=== PATIENT | female | born 1985 | race Caucasian/White ===

== ENCOUNTER → 2017-02-16 | Outpatient (REF) | payer BC ==
[~2017-02-16] MED LIST: HYDR-4274 PO; LEVO75TA4 PO; LOES1TAB10 PO; OLAN5TAB PO; PREV30CA11 PO; ZOLO50TA PO; zyrtec PO
[2017-02-16 18:01] LABS: CONTROL LINE HCG INT CTR LINE PRESENT
[2017-02-16 18:40] LABS: PROLACTIN 14.1 NG/ML
== END ==
LOC: M LABDRAW1 15:55
PROVIDERS: ATTEND Nurse Practitioner Women's Health
DX: N91.5 Oligomenorrhea, unspecified (principal)

== ENCOUNTER → 2017-04-19 | Outpatient (REF) | payer BC ==
[~2017-04-19] MED LIST changes: -HYDR-4274 PO; +HYDR50TA70 PO; +PREV1CAP PO; -PREV30CA11 PO
== END ==
LOC: M LABDRAW1 13:57
PROVIDERS: ATTEND Physician Assistant
DX: E03.9 Hypothyroidism, unspecified (principal)

== ENCOUNTER → 2017-08-05 | Outpatient (CLI) | payer BC | LOC: M WUC 13:42 | PROVIDERS: ATTEND Nurse Practitioner Adult Health | DX: E03.9 Hypothyroidism, unspecified (principal) ==

== ENCOUNTER → 2017-10-03 | Outpatient (CLI) | payer OTHER ==
[2017-10-03 17:54] LABS: CHOLESTEROL LEVEL 196 MG/DL (<200); CHOLESTEROL RISK RATIO 3.015 (<5); HDL CHOLESTEROL 65 MG/DL (>40); LDL CHOLESTEROL 114.8 MG/DL (<100); NON-HDL-C 131 MG/DL; TRIGLYCERIDES LEVEL 81 MG/DL (<150)
[2017-10-03 17:56] LABS: ESTIMATED AVERAGE GLUCOSE 100 MG/DL (60-110); HEMOGLOBIN A1c 5.1 %
== END ==
LOC: M WUC 08:19
DX: Z79.899 Other long term (current) drug therapy (principal)
CPT/HCPCS: 80178

== ENCOUNTER → 2017-10-17 | Outpatient (CLI) | payer OTHER ==
[2017-10-17 18:12] LABS: ALBUMIN/GLOBULIN RATIO 1.03 (1.00-1.93); ALKALINE PHOSPHATASE 64 U/L (45-117); ALT/SGPT 19 U/L (12-78); ANION GAP 7 MEQ/L (8-16); AST/SGOT 11 U/L (7-37); BILIRUBIN,TOTAL 0.5 MG/DL (0.2-1.0); BLOOD UREA NITROGEN 9 MG/DL (7-18); CALCIUM LEVEL 8.7 MG/DL (8.5-10.1); CARBON DIOXIDE LEVEL 27 MEQ/L (21-32); CHLORIDE LEVEL 107 MEQ/L (98-107); CREATININE FOR GFR 0.82 MG/DL (0.55-1.30); GLOMERULAR FILTRATION RATE > 60.0 (>60); GLUCOSE, FASTING 83 MG/DL (70-100); POTASSIUM SERUM 4.3 MEQ/L (3.5-5.1); SODIUM LEVEL 141 MEQ/L (136-145); TOTAL PROTEIN 7.9 GM/DL (6.4-8.2)
[2017-10-17 18:17] LABS: LITHIUM LEVEL 0.39 MEQ/L (0.60-1.20)
== END ==
LOC: M WUC 09:49
DX: Z51.81 Encounter for therapeutic drug level monitoring (principal); Z79.899 Other long term (current) drug therapy
CPT/HCPCS: 80178

== ENCOUNTER → 2017-12-14 | Outpatient (REF) | payer OTHER ==
[2017-12-14 12:19] LABS: HEMOGLOBIN 14.8 g/dl (12.0-15.5); MEAN CORPUSCULAR HEMOGLOBIN 31.3 pg (27.0-33.0); MEAN CORPUSCULAR HGB CONC 32.9 g/dl (32.0-36.5); MEAN CORPUSCULAR VOLUME 95.1 fl (80.0-96.0); PLATELET COUNT, AUTOMATED 250 10^3/uL (150-450); RED BLOOD COUNT 4.73 10^6/uL (4.00-5.40); RED CELL DISTRIBUTION WIDTH 12.5 % (11.5-14.5); WHITE BLOOD COUNT 6.5 10^3/uL (4.0-10.0)
[2017-12-14 12:43] LABS: ALBUMIN 3.9 GM/DL (3.2-5.2); ALBUMIN/GLOBULIN RATIO 0.95 (1.00-1.93); ALKALINE PHOSPHATASE 61 U/L (45-117); ALT/SGPT 20 U/L (12-78); ANION GAP 6 MEQ/L (8-16); AST/SGOT 12 U/L (7-37); BILIRUBIN,TOTAL 0.2 MG/DL (0.2-1.0); BLOOD UREA NITROGEN 8 MG/DL (7-18); CARBON DIOXIDE LEVEL 27 MEQ/L (21-32); CHLORIDE LEVEL 110 MEQ/L (98-107); GLOMERULAR FILTRATION RATE > 60.0 (>60); GLUCOSE, FASTING 73 MG/DL (70-100); POTASSIUM SERUM 4.3 MEQ/L (3.5-5.1); RHEUMATOID FACTOR QUANT 56.5 IU/ML (<15.0); SODIUM LEVEL 143 MEQ/L (136-145)
[2017-12-16 00:06] LABS: CYCLIC CITRULLINATED PEPTIDE > 250 units (0-19)
== END ==
LOC: M SFHCPLAZ 09:13
DX: Z00.00 Encounter for general adult medical examination without abnormal findings (principal); E03.9 Hypothyroidism, unspecified; M05.40 Rheumatoid myopathy with rheumatoid arthritis of unspecified site
CPT/HCPCS: 84443

== ENCOUNTER → 2018-09-25 | Outpatient (CLI) | payer BC ==
[2018-09-25 11:39] LABS: HEMATOCRIT 45.1 % (36.0-47.0); HEMOGLOBIN 14.9 g/dl (12.0-15.5); MEAN CORPUSCULAR HEMOGLOBIN 31.4 pg (27.0-33.0); MEAN CORPUSCULAR VOLUME 95.1 fl (80.0-96.0); PLATELET COUNT, AUTOMATED 234 10^3/uL (150-450); RED BLOOD COUNT 4.74 10^6/uL (4.00-5.40); WHITE BLOOD COUNT 6.3 10^3/uL (4.0-10.0)
[2018-09-25 11:57] LABS: HEMOGLOBIN A1c 5.2 %
[2018-09-25 12:07] LABS: ALBUMIN 3.8 GM/DL (3.2-5.2); ALT/SGPT 18 U/L (12-78); BILIRUBIN,TOTAL 0.3 MG/DL (0.2-1.0); BLOOD UREA NITROGEN 13 MG/DL (7-18); CALCIUM LEVEL 8.7 MG/DL (8.5-10.1); CARBON DIOXIDE LEVEL 28 MEQ/L (21-32); CHLORIDE LEVEL 110 MEQ/L (98-107); CHOLESTEROL LEVEL 206 MG/DL (<200); CHOLESTEROL RISK RATIO 3.029 (<5); CREATININE FOR GFR 0.76 MG/DL (0.55-1.30); GLOMERULAR FILTRATION RATE > 60.0 (>60); GLUCOSE, FASTING 92 MG/DL (70-100); HDL CHOLESTEROL 68 MG/DL (>40); LDL CHOLESTEROL 128 MG/DL (<100); LITHIUM LEVEL 0.63 MEQ/L (0.60-1.20); NON-HDL-C 138 MG/DL; PHOSPHORUS LEVEL 3.3 MG/DL (2.5-4.9); POTASSIUM SERUM 4.4 MEQ/L (3.5-5.1); SODIUM LEVEL 144 MEQ/L (136-145); TOTAL PROTEIN 7.2 GM/DL (6.4-8.2); TRIGLYCERIDES LEVEL 52 MG/DL (<150)
== END ==
LOC: M WUC 08:49
PROVIDERS: ATTEND Nurse Practitioner Psychiatric/Mental Health
DX: Z79.899 Other long term (current) drug therapy (principal)

== ENCOUNTER → 2018-12-18 | Outpatient (CLI) | payer BC ==
[2018-12-18 17:42] LABS: BASO # 0.1 10^3/uL (0.0-0.2); EOS # 0.1 10^3/uL (0.0-0.50); HEMATOCRIT 47.5 % (36.0-47.0); LYMPH # 1.8 10^3/uL (1.5-4.5); LYMPH % 26.4 % (24.0-44.0); MEAN CORPUSCULAR HEMOGLOBIN 31.1 pg (27.0-33.0); MEAN CORPUSCULAR HGB CONC 31.6 g/dl (32.0-36.5); MEAN CORPUSCULAR VOLUME 98.3 fl (80.0-96.0); MONO # 0.5 10^3/uL (0.0-0.8); MONO % 7.3 % (0.0-5.0); NEUTROPHILS # 4.4 10^3/uL (1.8-7.7); NEUTROPHILS % 64.2 % (36.0-66.0); PLATELET COUNT, AUTOMATED 230 10^3/uL (150-450); RED BLOOD COUNT 4.83 10^6/uL (4.00-5.40); WHITE BLOOD COUNT 6.8 10^3/uL (4.0-10.0)
[2018-12-18 17:49] LABS: FREE T4 0.99 NG/DL (0.76-1.46); THYROID STIMULATING HORMONE 1.33 uIU/ML (0.358-3.740)
== END ==
LOC: M WUC 10:15
PROVIDERS: ATTEND Physician Assistant
DX: E03.9 Hypothyroidism, unspecified (principal)

== ENCOUNTER → 2019-08-24 | Outpatient (REF) | payer BC ==
[2019-08-24 12:10] LABS: ALBUMIN 3.8 GM/DL (3.2-5.2); ALT/SGPT 16 U/L (12-78); BILIRUBIN,TOTAL 0.4 MG/DL (0.2-1.0); BLOOD UREA NITROGEN 9 MG/DL (7-18); CALCIUM LEVEL 9.1 MG/DL (8.5-10.1); CARBON DIOXIDE LEVEL 27 MEQ/L (21-32); CHLORIDE LEVEL 109 MEQ/L (98-107); CREATININE FOR GFR 0.73 MG/DL (0.55-1.30); GLOMERULAR FILTRATION RATE > 60.0 (>60); GLUCOSE, FASTING 75 MG/DL (70-100); POTASSIUM SERUM 4.4 MEQ/L (3.5-5.1); RHEUMATOID FACTOR QUANT 53.9 IU/ML (<15.0); SODIUM LEVEL 142 MEQ/L (136-145); TOTAL PROTEIN 7.5 GM/DL (6.4-8.2)
[2019-08-24 12:39] LABS: VITAMIN B12 LEVEL 1129 PG/ML (247-911)
== END ==
LOC: M SFHCPLAZ 08:47
PROVIDERS: ATTEND Nurse Practitioner Adult Health
DX: Z00.00 Encounter for general adult medical examination without abnormal findings (principal); E03.9 Hypothyroidism, unspecified; M05.40 Rheumatoid myopathy with rheumatoid arthritis of unspecified site; R53.83 Other fatigue

== ENCOUNTER → 2019-09-03 | Outpatient (CLI) | payer BC ==
[2019-09-03 14:14] LABS: ALBUMIN 3.8 GM/DL (3.2-5.2); BLOOD UREA NITROGEN 7 MG/DL (7-18); CALCIUM LEVEL 8.4 MG/DL (8.5-10.1); CARBON DIOXIDE LEVEL 26 MEQ/L (21-32); CHLORIDE LEVEL 111 MEQ/L (98-107); GLOMERULAR FILTRATION RATE > 60.0 (>60); GLUCOSE, FASTING 105 MG/DL (70-100); LITHIUM LEVEL 0.34 MEQ/L (0.60-1.20); POTASSIUM SERUM 4.1 MEQ/L (3.5-5.1); SODIUM LEVEL 143 MEQ/L (136-145)
== END ==
LOC: M WUC 10:10
PROVIDERS: ATTEND Nurse Practitioner Psychiatric/Mental Health
DX: Z79.899 Other long term (current) drug therapy (principal); F39 Unspecified mood [affective] disorder

== ENCOUNTER → 2020-04-09 | Outpatient (REF) | payer BC ==
[2020-05-27 21:58] LABS: HEMATOCRIT 45.9 % (36.0-47.0); MEAN CORPUSCULAR HGB CONC 32.7 g/dl (32.0-36.5); MEAN CORPUSCULAR VOLUME 97.9 fl (80.0-96.0); PLATELET COUNT, AUTOMATED 221 10^3/uL (150-450); RED BLOOD COUNT 4.69 10^6/uL (4.00-5.40); WHITE BLOOD COUNT 8.3 10^3/uL (4.0-10.0)
[2020-05-27 22:12] LABS: ERYTHROCYTE SEDIMENTATION RATE 3 mm/hr (0-20)
[2020-06-03 03:47] LABS: ALBUMIN 3.9 GM/DL (3.2-5.2); ALT/SGPT 20 U/L (12-78); BILIRUBIN,TOTAL 0.4 MG/DL (0.2-1.0); BLOOD UREA NITROGEN 11 MG/DL (7-18); CALCIUM LEVEL 9.1 MG/DL (8.5-10.1); CARBON DIOXIDE LEVEL 26 MEQ/L (21-32); CHLORIDE LEVEL 109 MEQ/L (98-107); CREATININE FOR GFR 0.69 MG/DL (0.55-1.30); GLOMERULAR FILTRATION RATE > 60.0 (>60); GLUCOSE, FASTING 99 MG/DL (70-100); RHEUMATOID FACTOR QUANT 39.1 IU/ML (<15.0); SODIUM LEVEL 140 MEQ/L (136-145)
== END ==
LOC: M WUC 15:48
PROVIDERS: ATTEND Internal Medicine Rheumatology
DX: M05.79 Rheumatoid arthritis with rheumatoid factor of multiple sites without organ or systems involvement (principal)

== ENCOUNTER → 2020-08-08 | Outpatient (CLI) | payer BC ==
[2020-08-08 11:34] LABS: BASO # 0.1 10^3/uL (0.0-0.2); BASO % 1.1 % (0.0-1.0); EOS # 0.1 10^3/uL (0.0-0.5); EOS % 1.3 % (0.0-3.0); HEMATOCRIT 44.6 % (36.0-47.0); HEMOGLOBIN 14.1 g/dl (12.0-15.5); LYMPH # 1.7 10^3/uL (1.5-5.0); LYMPH % 20.5 % (24.0-44.0); MEAN CORPUSCULAR HEMOGLOBIN 30.3 pg (27.0-33.0); MEAN CORPUSCULAR HGB CONC 31.6 g/dl (32.0-36.5); MEAN CORPUSCULAR VOLUME 95.9 fl (80.0-96.0); MONO # 0.6 10^3/uL (0.0-0.8); MONO % 7.5 % (0.0-5.0); NEUTROPHILS # 5.9 10^3/uL (1.5-8.5); NEUTROPHILS % 69.2 % (36.0-66.0); PLATELET COUNT, AUTOMATED 235 10^3/uL (150-450); RED BLOOD COUNT 4.65 10^6/uL (4.00-5.40); WHITE BLOOD COUNT 8.5 10^3/uL (4.0-10.0)
[2020-08-08 12:15] LABS: ALBUMIN 3.9 GM/DL (3.2-5.2); ALT/SGPT 18 U/L (12-78); BILIRUBIN,TOTAL 0.3 MG/DL (0.2-1.0); BLOOD UREA NITROGEN 9 MG/DL (7-18); CALCIUM LEVEL 8.7 MG/DL (8.5-10.1); CARBON DIOXIDE LEVEL 27 MEQ/L (21-32); CHLORIDE LEVEL 107 MEQ/L (98-107); CREATININE FOR GFR 0.63 MG/DL (0.55-1.30); FREE T4 1.07 NG/DL (0.76-1.46); GLOMERULAR FILTRATION RATE > 60.0 (>60); GLUCOSE, FASTING 75 MG/DL (70-100); LITHIUM LEVEL 0.36 MEQ/L (0.60-1.20); POTASSIUM SERUM 4.2 MEQ/L (3.5-5.1); SODIUM LEVEL 141 MEQ/L (136-145); TOTAL PROTEIN 7.2 GM/DL (6.4-8.2)
== END ==
LOC: M WUC 08:51
PROVIDERS: ATTEND Nurse Practitioner Psychiatric/Mental Health
DX: F42.2 Mixed obsessional thoughts and acts (principal)

== ENCOUNTER 2020-10-09 16:33 | Inpatient (IN) | payer BC ==
[~2020-10-09] VITALS: Ht 175.3 cm; Wt 77.7 kg
--- OUTSIDE RECORDS SUMMARY | 2020-10-09 16:38 | CCD ---
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 995839469 Problem Hypothyroidism, unspecified E03.9 Active 4093 0008 Problem Allergic rhinitis 477.9 Active 29239098 Problem Rheumatoid arthritis 714.0 Active 86997563 Problem Constipation, unspecified constipation type K59.00 Active 33685303 Problem Anxiety F41.9 Active 55681212 ALLERGIES Allergen (clinical drug ingredient) Drug/Non Drug Allergy do cumented on EMR Reaction Allergy Type Onset Date Status Sulfa (for allergy use only) seizures Drug Allergy Active ENCOUNTERS from 1987 to 2020-08-29 Encounter Location Date Provider Diagnosis [address] [address] Aug, Jada Vigil Well adult exam Z00.00 ; Hypothyroidism, unspecified E03.9 ; Anxiety F41.9 ; Constipation, unspecified constipation type K59.00 ; 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 ; Influenza vaccine refused Z28.21 and Adult acne L70.9 IMMUNIZATIONS Vaccine Route Administration Date Status Depo-Medrol 40mg (Methylpredisolone Acetate) IM Intramuscular Ju 2017 Administered Influenza (6mo & up) Fluzone Unknown Aug 04, 2016 Oth ers Influenza (6mo & up) Fluzone IM Intramuscular Jun 07, 2013 Ad ministered SOCIAL HISTORY Tobacco Use: Social History Observation Description Date Details (start date - stop date) Never Smoker Sex Assigned At : Social History Observation Description Sex Assigned At Unknown Education: Question Answer Notes Level of Education: MS Education Audit Question Answer Notes Total Score: 0 Interpretation: Alcohol Education Domestic Violence: Question Answer Notes Status: Partnered Number of months/years in current relationship? 2015 Does the patient divulge that the partner hit them? No Does the patient divulge that the partner hits the children in the household? no children Sexual Hx: Question Answer Notes Had sex in the last 12 months (vaginal, oral, or anal)? Yes LMP: 05/2017 Have you ever had an STD? No with Men only Use protection? No Drug and Alcohol Question Answer Notes Total Score: 0 Interpretation: No problems reported Alcohol Screening: Question Answer Notes Did you have a drink containing alcohol in the past year? No Points 0 Interpretation Negative Tobacco Use: Question Answer Notes Are you a: never smoker REASON FOR REFERRAL No Information VITAL SIGNS Weight 171 lbs Aug, Height 67.5 in Aug, BMI 26.38 kg/m2 Aug, Heart Rate 100 /min Aug, Respiratory Rate 18 /min Aug, Temperature 97.8 degrees Fahrenheit Aug, Oximetry 97% Aug, Blood pressure systolic 110 mm Hg Aug, Blood pressure diastolic 68 mm Hg Aug, MEDICATIONS Medication SIG (Take, Route, Frequency, Duration) Notes Start Da te End Date Status Zoloft 100 MG 2 tablets Orally Once a day Active Vraylar 1.5 MG 1 capsule Orally Once a day Active [place] Carbonate 300 MG as directed Orally 300 mg in am 600 mgs in p m Active MiraLax - 1 capfull mixed with 8 ounce s of fluid Orally Once a day for 30 day(s) Active Differin 0.1 % 1 application in the evening topically to affected skin areas Once a day for 30 days Aug, Active Tramadol HCl 50 MG 1 tablet as needed Orally Daily Active Levoxyl 50 mcg 1 tablet on an empty stomach in the morning Orally Once a day for 90 days Active Colace 100 MG 3 capsule as needed Orally a few times a week Active Seasonal IC Active PROCEDURES No Information RESULTS No Results REASON FOR VISIT 1 year annual well exam MEDICAL (GENERAL) HISTORY Type Description Date Medical History RA- Dr Christen Capone (dx 07/04) Medical History polyarthritis Medical History hypothyroidism since 14 yo (TPO Ab neg) 11/03 TSH 0.738 Medical History Depression/anxiety/mood diso rder-[facility] Medical History H/O mild asthma when younger Medical History allergic rhinitis Medical History Tdap 09/04 per prev recs Surgical History tonsilectomy 2008 Surgical History wisdom tooth extraction 2009 Goals Section No Information Health Concerns No Information MEDICAL EQUIPMENT No Information MENTAL STATUS No Information FUNCTIONAL STATUS No Information ASSESSMENTS Encounter Date Diagnosis Assessment Notes Treatment Notes Treatm ent Clinical Notes Aug, Well adult exam (ICD-10 - Z00.00) age appropriate anticipatory guidance given, per USPSTF recommendations; immunizations up to date. Aug, Hypothyroidism, unspecified (ICD-10 - E03.9) winthin normal limits renewed script for 6 month lab draw provided Aug, Anxiety (ICD-10 - F41.9) follow with [facility] on lithium and zoloft, feels it is helping.Follows with medical management monthly, counselor monthly, has followed with a counselor x 14 years now on vrylar Aug, Constipation, unspecified constipation type (ICD -10 - K59.00) uses otc products. States it is not an issue currently uses senna tea. discussed prune juice tries to stay away from sugar items Aug, Rheumatoid myopathy with rhe umatoid arthritis of unspecified site (ICD-10 - M05.40) states she feels under control with Dr. Brewer's products. Has not seen a parts analyst in over 3 years used to follow with kenzie Aug, Influenza vaccine refused (ICD-10 - Z28.21) refuses flu vaccine but does believe in vaccines. Aug, Adult acne (ICD-10 - L70.9) will try differin gel discxussed otc wants to use flexible spending $ Aug, Other 1 year annual w ell exam will check tsh with a lab in 6 months. PLAN OF TREATMENT Medication Medication Name Sig Start Date Stop Date Differin 0.1 % 1 application in the evening topically to affected skin areas Once a day for 30 days Aug, Levoxyl 50 mcg 1 tablet on an empty stomach in the morning Orally Once a day for 90 days Treatment Notes Assessment Notes Clinical Notes Well adult exam age appropriate anti cipatory guidance given, per USPSTF recommendations; immunizations up to date. Hypothyroidism, unspecified winthin norm al limits renewed script for 6 month lab draw provided Anxiety [facility] on lithium and zoloft, feels it is helping.Follows with medical management monthly, counselor monthly, has followed with a counselor x 14 yearsnow on vrylar Constipation, unspecified constipation type uses otc products. 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 Brewer's products. Has not seen a parts analyst in over 3 years used to follow with [facility] Influenza vaccine refused refuses flu [facility] but does believe in vaccines. Adult acne will try differin ge l discxussed otc wants to use flexible spending $ Future Test Test Name Order Date TSH [id number] Next Appt Details Jada 1 year annual wellness Reason: Provider Name:Jada Vigil, 10:30:00 AM, [address] [place], [address], Insurance Providers Payer Name Payer Address Payer Phone Insured Name Patient Relati onship to Insured Coverage Start Date Coverage End Date BRYNN GARCIA PPO [phone] [facility] Tellja OLGA LIDIA GOMEZ [facility] [address] CAYLA BROWN MAY self
--- OUTSIDE RECORDS SUMMARY | 2020-10-09 16:38 | CCD ---
Author Author Brenda Gillespie Organization Unknown Address [address] [place] [address] Phone Care Team Providers Care Colorman Name Role Phone Viv Gillespie PCP Allergies, Adverse Reactions, Alerts Concept Allergy Name Reaction Severity Onset Date Status Documentation Date Phone Number Npid Taxonomy Code Taxonomy Desc Author Last Name Author Fi rst Name Concept Type 791825 Zyprexa (olanzapine) weight gain, weight gain 06/24 Active 06/18/2016 [id number] Registered Nurse Perry Butt RXNORM Problem List Concept Problem Description Status Start Date Created Date Resolv ed Date Snomed Code F31.9 Unspecified Bipolar and Related Disorder Active 09/05/2020 F42.2 Obsessive-Compulsive Disorder Active 02/26/2016 6 F45.22 Body Dysmorphic Disorder Active 02/26/2016 02/26/2016 F41.1 Generalized Anxiety Disorder Active 02/26/2016 02/26/2016 F50.8 Binge-Eating Disorder Active 02/26/2016 02/26/2016 Medications Rx Norm Medication Route Route Concept Start Date Stop Date Dosage Arley quency Duration Formula Strength Dosage Form Dosage Form Code Dosage Description Medication Id Account Npid Author First Name Author Last Name Taxonomy Code Taxonomy Desc Phone Number [phone] sertraline by mouth [id number] 10/27/2018 once a day 100 mg ta blet 63688 [id number] Viv Gillespie [id number] Psychiatric/Mental Health [id number] [id number] lithium carbonate 09/21/2019 once a day 300 mg c apsule 34593 [id number] Siobhan Emmanuel [id number] Psychiatric/Mental Health [id number] Social History Social History Element Description Concept Effective Date Smoking Status Unknown if ever smoked [id number] Immunizations No Data in Section Vital Signs Encounter Date Height Ins Weight Lbs Bmi Bp Systolic Bp Diastoli c Oxygen Saturation Respiration Rate Pulse Rate Body Temp Head Circumference Heigh t Lying 09/05/2020 0.00 0.00 0.00 0 0 0.00 0 0 0.00 0.0 0.0 0 Procedures Date Concept Id Description Targeted Site Concept Targeted Site Concept Type 09/05/2020 45048-57 [facility] Telemed E/M Lvl 3--Est pt CPT 09/05/2020 50410-50 Telemed A/O 30" CPT Patient has no history of implantable de vices Encounters Encounter Start Date End Date Encounter Type Description Diagnosis Di agnosis Desc Location Author First Name Author Last Name Npid Taxonomy Cod e Taxonomy Desc Phone Number Location Addr1 Location Addr2 Location [facility] Location Sta te Location [facility] [address]315 09/05/2020 09/05/2020 82637-23 MHC Telemed E/M Lvl 3--Est p t F31.9 Bipolar disorder, unspecified [facility] [phone] [id number] Psychiatric/Mental Health [id number] [address] [facility] [address] Plan of Treatment No Data in Section Lab Results No Data in Section Instructions No Data in Section Functional Cognitive Status No Data in Section Insurance Providers Insurance Id Policy Effective Date Policy Thru Date Skimbl Ganga barrera [id number] 2018 [place]AYLEE/HANS [place]
--- OUTSIDE RECORDS SUMMARY | 2020-10-09 16:38 | CCD ---
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 467517641 Problem Hypothyroidism, unspecified E03.9 Active 4093 0008 Problem Allergic rhinitis 477.9 Active 91146910 Problem Rheumatoid arthritis 714.0 Active 99421063 Problem Constipation, unspecified constipation type K59.00 Active 62700258 Problem Anxiety F41.9 Active 32975160 ALLERGIES Allergen (clinical drug ingredient) Drug/Non Drug Allergy do cumented on EMR Reaction Allergy Type Onset Date Status Sulfa (for allergy use only) seizures Non Drug Allergy Active ENCOUNTERS from 1987 to 2020-09-12 Encounter Location Date Provider Diagnosis [address] [address] Aug, Jada Vigil Constipation, unspecified constipation t ype K59.00 IMMUNIZATIONS Vaccine Route Administration Date Status Depo-Medrol [...] Partnered Number of months/years in current relationship? 2016 Does the patient divulge that the partner [...] REASON FOR REFERRAL No Information VITAL SIGNS No information MEDICATIONS Medication SIG (Take, Route, Frequency, Duration) Notes Start Da te End Date Status Tramadol HCl 50 MG 1 tablet as needed Orally Daily Active [place] Carbonate 300 MG as directed Orally 300 mg in am 600 mgs in p m Active Levoxyl 50 mcg 1 tablet on an empty stomach in the morning Orally Once a day for 90 days Active MiraLax - 1 capfull mixed with 8 ounce s of fluid Orally Once a day for 30 day(s) Active Diflucan 150 MG 1 tab Orally as directed 1 t molly the repeat x 1 in 10 days for 2 days Aug, Active Vraylar 1.5 MG 1 capsule Orally Once a day Active Colace 100 MG 3 capsule as needed Orally a few times a week Active PredniSONE 10 MG 1 tablet Orally as directed 4 tabs x 3 days 3 tabs x 3 days 2 tabs x 3 days 1 tab x 5 days 1/2 tab x 6 days for 20 days Feb Active Differin 0.1 % 1 application in the evening topically to affected skin areas Once a day for 30 days Aug, Active Amoxicillin 250 MG 1 capsule Orally qid for 10 day(s) 2020 Active Zoloft 100 MG 2 tablets Orally Once a day Active Seasonal IC Active PROCEDURES No Information RESULTS No Results REASON FOR VISIT Refil miralax MEDICAL (GENERAL) HISTORY Type Description Date Medical History RA- Dr Christen Capone (dx 07/04 )--now follows with Dr. Brewer- does not want biologics-tried humeria plaquinil not helpful Medical History polyarthritis Medical History hypothyroidism since [...] Treatment Notes Treatm ent Clinical Notes Aug, Constipation, unspecified constipation type (ICD -10 - K59.00) PLAN OF TREATMENT Medication Medication Name Sig Start Date Stop Date PredniSONE 10 MG 1 tablet Orally as directed 4 tabs x 3 days 3 tabs x 3 days 2 tabs x 3 days 1 tab x 5 days 1/2 tab x 6 days for 20 days Feb, Amoxicillin 250 MG 1 capsule Orally qid for 10 day(s) Aug, MiraLax - 1 capfull mixed with 8 ounce s of fluid Orally Once a day for 30 day(s) Diflucan 150 MG 1 tab Orally as directed 1 t molly the repeat x 1 in 10 days for 2 days Aug, Next Appt Details Provider Name:Jada Jules Vigil, 10:30:00 AM, [address] [place], [address], Insurance Providers Payer Name Payer Address Payer Phone Insured Name Patient Relati onship to Insured Coverage Start Date Coverage End Date BCHANS GARCIA PPO [phone] [facility] [place] [address] CAYLA BROWN self
--- OUTSIDE RECORDS SUMMARY | 2020-10-09 16:38 | CCD ---
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 882699487 Problem Hypothyroidism, unspecified E03.9 Active 4093 0008 Problem Allergic rhinitis 477.9 Active 76987787 Problem Rheumatoid arthritis 714.0 Active 29832073 Problem Constipation, unspecified constipation type K59.00 Active 38861565 Problem Anxiety F41.9 Active 66788769 ALLERGIES Allergen (clinical drug ingredient) Drug/Non Drug Allergy do cumented on EMR Reaction Allergy Type Onset Date Status Sulfa (for allergy use only) seizures Non Drug Allergy Active ENCOUNTERS from 1987 to 2020-09-05 Encounter Location Date Provider Diagnosis [address] [address] Aug, Jada Vigil IMMUNIZATIONS Vaccine Route Administration Date Status Depo-Medrol [...] 1 tablet as needed Orally Daily Active [place] Carbonate 300 MG as directed Orally 300 [...] Information RESULTS No Results REASON FOR VISIT concerns with RA MEDICAL (GENERAL) HISTORY Type Description Date Medical [...] No Information FUNCTIONAL STATUS No Information ASSESSMENTS No Information PLAN OF TREATMENT Medication Medication Name Sig Start Date Stop Date PredniSONE 10 MG 1 tablet Orally as directed 4 tabs x 3 days 3 tabs x 3 days 2 tabs x 3 days 1 tab x 5 days 1/2 tab x 6 days for 20 days Feb, Amoxicillin 250 MG 1 capsule Orally qid for 10 day(s) Aug, Diflucan 150 MG 1 tab Orally as directed 1 t molly the repeat x 1 in 10 days for 2 days Aug, Next Appt Details Provider Name:Jada Vicente Yaritza, 10:30:00 AM, [address] [place], [address], Insurance Providers Payer Name Payer Address Payer Phone Insured Name Patient Relati onship to Insured Coverage Start Date Coverage End Date BCHANS GARCIA PPO [phone] [facility] MeetBall OLGA LIDIA GOMEZ [facility] [place] [address] CAYLA BROWN MAY self
--- OUTSIDE RECORDS SUMMARY | 2020-10-09 16:38 | CCD ---
Author Author Brenda Calvo Organization Unknown Address [address] [place] [address] Phone Care Team Providers Care Cement Gun Operator Name Role Phone Bernice Calvo PCP Allergies, Adverse Reactions, Alerts Concept Allergy Name Reaction Severity Onset Date Status Documentation Date Phone Number Npid Taxonomy Code Taxonomy Desc Author Last Name Author Fi rst Name Concept Type 144975 Zyprexa (olanzapine) weight gain, weight gain 06/24 Active 06/18/2016 [id number] Registered Nurse Perry Butt RXNORM Problem List Concept Problem Description Status Start Date Created Date Resolv ed Date Snomed Code F31.9 Unspecified Bipolar and Related Disorder Active 10/01/2020 F42.2 Obsessive-Compulsive Disorder Active 02/26/2016 6 F45.22 [...] Name Taxonomy Code Taxonomy Desc Phone Number [phone] sertraline by mouth H47590 10/27/2018 once a day 100 mg ta blet 10446 [id number] [id number] Viv Castor [id number] Psychiatric/Mental Health [phone] 934244 lithium carbonate 09/21/2019 once a day 300 mg c apsule 53560 [id number] [id number] Viv Verna [id number] Psychiatric/Mental Health [phone] [id number] Vraylar by mouth D41596 09/05/2020 once a day 3 mg capsul e 18262 [id number] [id number] Viv Gillespie [id number] Psychiatric/Mental Health [id number] 516031 trazodone by mouth R96147 09/16/2020 12/15/2020 every evening 30 50 mg tablet 48428 [id number] Viv Gillespie [id number] P sychiatric/Mental Health [id number] Social History Social History Element Description Concept Effective Date Smoking Status Unknown if ever smoked [id number] 56409826 Immunizations No Data in Section Vital Signs No Data in Section Procedures Date Concept Id Description Targeted Site Concept Targeted Site Concept Type 10/01/2020 89420 Extended Individual Psychotherapy - 45 min CPT Patient has no history of implantable de vices Encounters Encounter Start Date End Date Encounter Type Description Diagnosis Di agnosis Desc Location Author First Name Author Last Name Npid Taxonomy Cod e Taxonomy Desc Phone Number Location Addr1 Location Addr2 Location [facility] Location Sta te Location Zip [id number] 10/01/2020 10/01/2020 64325 Extended Individual Psych otherapy - 45 min F31.9 Bipolar disorder, unspecified [facility] [phone] [id number] Mental Health [phone] [address] [address] Plan of Treatment No Data in Section Lab Results No Data in Section Instructions No Data in Section Insurance Providers Insurance Id Policy Effective Date Policy Thru Date Company Ganga barrera [id number] 2018 BRIANNE [place]OSÉ/[place]
--- OUTSIDE RECORDS SUMMARY | 2020-10-09 16:38 | CCD ---
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 444757720 Problem Hypothyroidism, unspecified E03.9 Active 4093 0008 Problem Allergic rhinitis 477.9 Active 50154071 Problem Rheumatoid arthritis 714.0 Active 24022090 Problem Constipation, unspecified constipation type K59.00 Active 04649730 Problem Anxiety F41.9 Active 90703254 ALLERGIES Allergen (clinical drug ingredient) Drug/Non Drug Allergy do cumented on EMR Reaction Allergy Type Onset Date Status Sulfa (for allergy use only) seizures Non Drug Allergy Active ENCOUNTERS from 1987 to 2020-09-10 Encounter Location Date Provider Diagnosis [address] [address] Aug, Jada Vigil Rheumatoid myopathy with rheumatoid arth ritis of unspecified site M05.40 and Right otitis media, unspecified otitis media type H66.91 IMMUNIZATIONS Vaccine Route Administration Date Status Depo-Medrol [...] FOR REFERRAL No Information VITAL SIGNS Weight 168.4 lbs Aug, Height 67.5 in Aug, BMI 25.98 kg/m2 Aug, Heart Rate 84 /min Aug, Respiratory Rate 18 /min Aug, Temperature 98.2 degrees Fahrenheit Aug, Oximetry 100% Aug, Blood pressure systolic 136 mm Hg Aug, Blood pressure diastolic 90 mm Hg Aug, MEDICATIONS Medication SIG (Take, Route, Frequency, Duration) Notes Start Da te End Date Status Tramadol HCl 50 MG 1 tablet as needed Orally Daily Active [place] Carbonate 300 MG as directed Orally 300 [...] 1 capsule Orally qid for 10 day(s) 14 2020 Active Zoloft 100 MG 2 tablets Orally Once a day Active Seasonal IC Active PROCEDURES No Information RESULTS No Results REASON FOR VISIT ? RA flare MEDICAL (GENERAL) HISTORY Type Description Date Medical History RA- Dr Christen Capone (dx 07/04 )--now follows with Dr. Brewer- does not want biologics-tried humeria plaquinil not helpful Medical History polyarthritis Medical History hypothyroidism since 14 yo (TPO Ab neg) 11/03 TSH 0.738 Medical History Depression/anxiety/mood diso rder-Follows with the [facility] Medical History H/O mild asthma when younger Medical History allergic rhinitis Medical History Tdap 09/04 per prev recs Surgical History tonsilectomy 2008 Surgical History wisdom tooth extraction 2009 Goals Section No Information Health Concerns No Information MEDICAL EQUIPMENT No Information MENTAL STATUS No Information FUNCTIONAL STATUS No Information ASSESSMENTS Encounter Date Diagnosis Assessment Notes Treatment Notes Treatm ent Clinical Notes Aug, Rheumatoid myopathy with rhe umatoid arthritis of unspecified site (ICD-10 - M05.40) she was under control with Dr. Brewer's products. Has not seen a lead quality control technician in over 3 years used to follow with kenzie last time has a prednisone script 03/22/18. Aug, Right otitis media, unspecif ied otitis media type (ICD-10 - H66.91) R>L with treat, Instructions given to patient on medication use along with a discussion concerning common reactions/side effects to medication. Patient verbalized understanding and will call clinic with any further questions or concerns. 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 Brewer's products. Has not seen a lead quality control technician in over 3 years used to follow with [facility] last time has a prednisone script 03/22/18. Right otitis media, unspecified otitis media type R>L with treat, Instructions given to patient on medication use along with a discussion concerning common reactions/side effects to medication. Patient verbalized understanding and will call clinic with any further questions or concerns. Next Appt Details Jada August 2021 as scheduled Reason: Provider Name:Jada Jules Vigil, 10:30:00 AM, [address] [place] [address], [phone], Insurance Providers Payer Name Payer Address Payer Phone Insured Name Patient Relati onship to Insured Coverage Start Date Coverage End Date BRYNN GARCIA PPO [phone] [facility] Cube Route [facility] [place] [address] CAYLA BROWN self
--- OUTSIDE RECORDS SUMMARY | 2020-10-09 16:39 | CCD ---
Author Author [facility] Organization [facility] Address Unknown Phone Unavailable Care Team Providers Care Poultry Sexer Name Role Phone Anat BLAIR MD Unavailable Unavailable Anat BLAIR MD Unavailable Unavailable Anat BLAIR MD Unavailable Unavailable Anat BLAIR MD Unavailable Unavailable Anat BLAIR MD Unavailable Unavailable Anat BLAIR MD Unavailable Unavailable Anat BLAIR MD Unavailable Unavailable Anat BLAIR MD Unavailable Unavailable Anat BLAIR MD Unavailable Unavailable Anat BLAIR MD Unavailable Unavailable Anat BLAIR MD Unavailable Unavailable Anat BLAIR MD Unavailable Unavailable Anat BLAIR MD Unavailable Unavailable JOHNNIE L VIGNESH PARIKH Unavailable Unavailable Anat BLAIR MD Unavailable Unavailable Anat BLAIR MD Unavailable Unavailable Anat BLAIR MD Unavailable Unavailable BLAIR, Anat MEDELLIN MD Unavailable Unavailable BLAIR, Anat MEDELLIN MD Unavailable Unavailable BLAIR, Anat MEDELLIN MD Unavailable Unavailable BLAIR, Anat MEDELLIN MD Unavailable Unavailable BLAIR, L VIGNESH PARIKH Unavailable Unavailable BLAIR, L VIGNESH PARIKH Unavailable Unavailable BLAIR, Anat MEDELLIN MD Unavailable Unavailable BLAIR, L VIGNESH PARIKH Unavailable Unavailable BLAIR, Anat MEDELLIN MD Unavailable Unavailable BLAIR, L VIGNESH PARIKH Unavailable Unavailable BLAIR, L VIGNESH PARIKH Unavailable Unavailable BLAIR, L VIGNESH PARIKH Unavailable Unavailable BLAIR, Anat MEDELLIN MD Unavailable Unavailable BLAIR, L VIGNESH PARIKH Unavailable Unavailable BLAIR, L VIGNESH PARIKH Unavailable Unavailable BLAIR, L VIGNESH PARIKH Unavailable Unavailable BLAIR, L VIGNESH PARIKH Unavailable Unavailable BLAIR, L VIGNESH PARIKH Unavailable Unavailable BLAIR, L VIGNESH PARIKH Unavailable Unavailable BLAIR, L VIGNESH PARIKH Unavailable Unavailable BLAIR, L VIGNESH PARIKH Unavailable Unavailable BLAIR, L VIGNESH PARIKH Unavailable Unavailable BLAIR, L VIGNESH PARIKH Unavailable Unavailable BLAIR, L VIGNESH PARIKH Unavailable Unavailable BLAIR, L VIGNESH PARIKH Unavailable Unavailable BLAIR, Anat MEDELLIN MD Unavailable Unavailable Raul Gillespie PMH-SUBSTATION OPERATOR TRANSFORMING Unavailable Unavailable Raul Gillespieurtney PMH-SUBSTATION OPERATOR TRANSFORMING Unavailable Unavailable Verna, K Viv PMH-SUBSTATION OPERATOR TRANSFORMING Unavailable Unavailable Verna, K Viv PMH-SUBSTATION OPERATOR TRANSFORMING Unavailable Unavailable Nalcrest, K Viv PMH-SUBSTATION OPERATOR TRANSFORMING Unavailable Unavailable Nalcrest, K Viv PMH-SUBSTATION OPERATOR TRANSFORMING Unavailable Unavailable AGATA SALGADO MD Unavailable Unavailable AGATA SALGADO MD Unavailable Unavailable AGATA SALGADO MD Unavailable Unavailable AGATA SALGADO MD Unavailable Unavailable AGATA SALGADO MD Unavailable Unavailable AGATA SALGADO MD Unavailable Unavailable AGATA SALGADO MD Unavailable Unavailable AGATA SALGADO MD Unavailable Unavailable AGATA SALGADO MD Unavailable Unavailable AGATA SALGADO MD Unavailable Unavailable AGATA SALGADO MD Unavailable Unavailable AGATA SALGADO MD Unavailable Unavailable AGATA SALGADO MD Unavailable Unavailable AGATA SALGADO MD Unavailable Unavailable AGATA SALGADO MD Unavailable Unavailable AGATA SALGADO MD Unavailable Unavailable AGATA SALGADO MD Unavailable Unavailable AGATA SALGADO MD Unavailable Unavailable AGATA SALGADO MD Unavailable Unavailable AGATA SALGADO MD Unavailable Unavailable AGATA SALGADO MD Unavailable Unavailable AGATA SALGADO MD Unavailable Unavailable AGATA SALGADO MD Unavailable Unavailable AGATA SALGADO MD Unavailable Unavailable AGATA SALGADO MD Unavailable Unavailable AGATA SALGADO MD Unavailable Unavailable AGATA SALGADO MD Unavailable Unavailable AGATA SALGADO MD Unavailable Unavailable AGATA SALGADO MD Unavailable Unavailable AGATA SALGADO MD Unavailable Unavailable AGATA SALGADO MD Unavailable Unavailable AGATA SALGADO MD Unavailable Unavailable AGATA SALGADO MD Unavailable Unavailable AGATA SALGADO MD Unavailable Unavailable AGATA SALGADO MD Unavailable Unavailable AGATA SALGADO MD Unavailable Unavailable AGATA SALGADO MD Unavailable Unavailable AGATA SALGADO MD Unavailable Unavailable AGATA SALGADO MD Unavailable Unavailable AGATA SALGADO MD Unavailable Unavailable AGATA SALGADO MD Unavailable Unavailable AGATA SALGADO MD Unavailable Unavailable AGATA SALGADO MD Unavailable Unavailable AGATA SALGADO MD Unavailable Unavailable AGATA SALGADO MD Unavailable Unavailable AGATA SALGADO MD Unavailable Unavailable AGATA SALGADO MD Unavailable Unavailable AGATA SALGADO MD Unavailable Unavailable AGATA SALGADO MD Unavailable Unavailable AGATA SALGADO MD Unavailable Unavailable AGATA SALGADO MD Unavailable Unavailable AGATA SALGADO MD Unavailable Unavailable AGATA SALGADO MD Unavailable Unavailable AGATA SALGADO MD Unavailable Unavailable AGATA SALGADO MD Unavailable Unavailable AGATA SALGADO MD Unavailable Unavailable AGATA SALGADO MD Unavailable Unavailable AGATA SALGADO MD Unavailable Unavailable AGATA SALGADO MD Unavailable Unavailable AGATA SALGADO MD Unavailable Unavailable AGATA SALGADO MD Unavailable Unavailable AGATA SALGADO MD Unavailable Unavailable AGATA SALGADO MD Unavailable Unavailable AGATA SALGADO MD Unavailable Unavailable AGATA SALGADO MD Unavailable Unavailable AGATA SALGADO MD Unavailable Unavailable AGATA SALGADO MD Unavailable Unavailable AGATA SALGADO MD Unavailable Unavailable SALGADO, AGATA BARAHONA MD Unavailable Unavailable SALGADO, AGATA BARAHONA MD Unavailable Unavailable SALGADO, AGATA BARAHONA MD Unavailable Unavailable SALGADO, AGATA BARAHONA MD Unavailable Unavailable SALGADO, AGATA BARAHONA MD Unavailable Unavailable SALGADO, AGATA BARAHONA MD Unavailable Unavailable SALGADO, AAGTA BARAHONA MD Unavailable Unavailable SALAGDO, AGATA BARAHONA MD Unavailable Unavailable SALGADO, AGATA BARAHONA MD Unavailable Unavailable SALGADO, AGATA BARAHONA MD Unavailable Unavailable SALGADO, AGATA BARAHONA MD Unavailable Unavailable SALGADO, AGATA BARAHONA MD Unavailable Unavailable SALGADO, AGATA BARAHONA MD Unavailable Unavailable SALGADO, AGATA BARAHONA MD Unavailable Unavailable SALGADO, AGATA BARAHONA MD Unavailable Unavailable SALGADO, AGATA BARAHONA MD Unavailable Unavailable GATES, E GAYLE Unavailable Unavailable GATES, E GAYLE Unavailable Unavailable GATES, E GAYLE Unavailable Unavailable GATES, E GAYLE Unavailable Unavailable GATES, E GAYLE Unavailable Unavailable GATES, E GAYLE Unavailable Unavailable MACQUEEN, SIOBHAN SUBSTATION OPERATOR TRANSFORMING Unavailable Unavailable MACQUEEN, SIOBHAN SUBSTATION OPERATOR TRANSFORMING Unavailable Unavailable MACQUEEN, SIOBHAN SUBSTATION OPERATOR TRANSFORMING Unavailable Unavailable MACQUEEN, SIOBHAN SUBSTATION OPERATOR TRANSFORMING Unavailable Unavailable MACQUEEN, SIOBHAN SUBSTATION OPERATOR TRANSFORMING Unavailable Unavailable MACQUEEN, SIOBHAN SUBSTATION OPERATOR TRANSFORMING Unavailable Unavailable MACQUEEN, SIOBHAN SUBSTATION OPERATOR TRANSFORMING Unavailable Unavailable MACQUEEN, SIOBHAN SUBSTATION OPERATOR TRANSFORMING Unavailable Unavailable MACQUEEN, SIOBHAN SUBSTATION OPERATOR TRANSFORMING Unavailable Unavailable MACQUEEN, SIOBHAN SUBSTATION OPERATOR TRANSFORMING Unavailable Unavailable MACQUEEN, SIOBHAN SUBSTATION OPERATOR TRANSFORMING Unavailable Unavailable Bernice Calvo Unavailable Re-disclosure Warning The records that you are about to access may contain information from federally-assisted alcohol or drug abuse programs. If such information is present, then the following federally mandated warning applies: This information has been disclosed to you from records protected by federal confidentiality rules (42 CFR part 2). The federal rules prohibit you from making any further disclosure of this information unless further disclosure is expressly permitted by the written consent of the person to whom it pertains or as otherwise permitted by 42 CFR part 2. A general authorization for the release of medical or other information is NOT sufficient for this purpose. The Federal rules restrict any use of the information to criminally investigate or prosecute any alcohol or drug abuse patient.The records that you are about to access may contain highly sensitive health information, the redisclosure of which is protected by Article 27-F of the [facility] Public Health law. If you continue you may have access to information: Regarding HIV / AIDS; Provided by facilities licensed or operated by the [facility] Office of Mental Health; or Provided by the [facility] Office for People With Developmental Disabilities. If such information is present, then the following [facility] mandated warning applies: This information has been disclosed to you from confidential records which are protected by state law. State law prohibits you from making any further disclosure of this information without the specific written consent of the person to whom it pertains, or as otherwise permitted by law. Any unauthorized further disclosure in violation of state law may result in a fine or [place] health [facility] sentence or both. A general authorization for the release of medical or other information is NOT sufficient authorization for further disc losure. Allergies and Adverse Reactions Type Description Substance Reaction Status Data Source(s ) Propensity to adverse reactions to substance Zyprexa (olanza pine) olanzapine 5 MG Oral Tablet [Zyprexa] Active [facility] ([facility]) Sulfa (for allergy use only) Sulfa (for allergy use only) Schultz lfa (for allergy use only) seizures Active eCW1 ([facility]) Family History Family Member Name Family Member Gender Family Member Status Date o f Status Description Data Source(s) Unknown Male Problem [facility] ([facility]) Unknown Unknown Problem MEDENT (Emeka [facility]wood EDUCATION AND 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 MANAGER) Encounters Encounter Providers Location Date Indications Data Source(s ) Outpatient Attender: JUN SALGADO MD 03/25/2021 12:00:00 A [facility] Extended Individual Psychotherapy - 45 min Attender: Bernice Calvo [facility] Longterm 10/01/2020 12:00:00 PM EST - 10/01/2020 12:00:00 PM EST [facility] ([facility]) Attender: Bernice Calvo 10/01/2020 12:00:00 AM EST [facility] ([facility]) Unknown [address] [facility] [place] [address] 09/10/2020 12:00:00 AM EST eCW1 ([facility]) Outpatient Attender: Viv Gillespie [facility]-SUBSTATION OPERATOR TRANSFORMING [facility] Longterm 09/05/2020 08:30:00 AM EST - 09/05/2020 08:30:00 AM EST [facility] ([facility]) Outpatient [address] [facility] [address] 09/05/2020 12:00:00 AM EST eCW1 ([facility]) Unknown [address] [facility] [address] 09/05/2020 12:00:00 AM EST eCW1 ([facility]) Attender: Viv POWELL-MARICRUZ 09/05/2020 12: 00:00 AM EST [facility] ([facility]) Outpatient [address] [facility] [address] 08/27/2020 12:00:00 AM EST eCW1 ([facility]) Extended Individual Psychotherapy - 45 min Attender: Bernice Umesh [facility] 08/19/2020 08:00:00 AM EST - 08/19/2020 08:00:00 AM EST [facility] ([facility]) Attender: Bernice Calvo 08/19/2020 12:00:00 AM EST [facility] ([facility]) Extended Individual Psychotherapy - 45 min Attender: Bernice [facility] 08/09/2020 08:00:00 AM EST - 08/09/2020 08:00:00 AM EST [facility] ([facility]) Attender: Bernice Calvo 08/09/2020 12:00:00 AM EST [facility] ([facility]) [facility] 08/08/2020 08:00:00 AM EST - 08/08/2020 08:00:00 AM EST [facility] ([facility]) Attender: Viv ORANTES 08/08/2020 12: 00:00 AM EST [facility] ([facility]) [facility] 07/23/2020 07:30:00 AM EST - 07/23/2020 07:30:00 AM EST [facility] ([facility]) Attender: Viv Gillespie PM-SUBSTATION OPERATOR TRANSFORMING 07/23/2020 12: 00:00 AM EST [facility] ([facility]) Unknown [address] [facility] [address] 07/15/2020 12:00:00 AM EST eCW1 ([facility]) Unknown [address] [facility] [address] 06/27/2020 12:00:00 AM EST eCW1 ([facility]) Extended Individual Psychotherapy - 45 min Attender: Bernice Calvo [facility] 06/25/2020 09:00:00 AM EST - 06/25/2020 09:00:00 AM EST [facility] ([facility]) Outpatient Attender: VIGNESH BLAIR MD [employer] 10/2019 08:00:00 AM EST [facility] ([employer] EDUCATION AND DEVELOPMENT MANAGER) Attender: Bernice Calvo 06/25/2020 12:00:00 AM EST [facility] ([facility]) Unknown [address] [facility] [address] 06/21/2020 12:00:00 AM EDT eCW1 ([facility]) Unknown [address] [facility] [address] 06/21/2020 12:00:00 AM EDT eCW1 ([facility]) Extended Individual Psychotherapy - 45 min Attender: Bernice Calvo [facility] 06/03/2020 02:00:00 AM EDT - 06/03/2020 02:00:00 AM EDT [facility] ([facility]) Attender: Bernice Calvo 06/03/2020 12:00:00 AM EDT [facility] ([facility]) Extended Individual Psychotherapy - 45 min Attender: Bernice Calvo [facility] 05/22/2020 09:00:00 AM EDT - 05/22/2020 09:00:00 AM EDT [facility] ([facility]) Attender: Bernice Calvo 05/22/2020 12:00:00 AM EDT [facility] ([facility]) Outpatient Attender: GAYLE GATES 05/21/2020 12:00:00 AM [facility] Extended Individual Psychotherapy - 45 min Attender: Bernice Umesh [facility] Twila 05/17/2020 09:00:00 AM EDT - 05/17/2020 09:00:00 AM EDT [facility] ([facility]) Attender: Bernice Umesh 05/17/2020 12:00:00 AM EDT [facility] ([facility]) Outpatient Attender: SIOBHAN GONZALES NP [facility] Yoandy coppola 05/16/2020 10:30:00 AM EDT - 05/16/2020 10:30:00 AM EDT [facility] ([facility]) Attender: SIOBHAN GONZALES NP 05/16/2020 12:00:00 AM EDT [facility] ([facility]) Outpatient Attender: SIOBHAN GONZALES NP [facility] Yoandy coppola 05/02/2020 12:30:00 PM EDT - 05/02/2020 12:30:00 PM EDT [facility] ([facility]) Attender: SIOBHAN GONZALES NP 05/02/2020 12:00:00 AM EDT [facility] ([facility]) Outpatient Attender: VIGNESH [employer] 09:15:00 AM EDT [facility] ([employer] EDUCATION AND DEVELOPMENT MANAGER) Outpatient Attender: JUN SALGADO MD [id number] 03/19/2020 12:0 0:00 AM EDT Rheumatoid arthritis with rheumatoid factor of multiple sites without organ or systems involvement [facility] Rheumatoid arthritis with rheumatoid fac tor of multiple sites without organ or systems involvement Outpatient Attender: JUN SALGADO MD 03/19/2020 12:00:00 A [facility] Outpatient Attender: VIGNESH [employer] 09:15:00 AM EDT [facility] ([employer] EDUCATION AND DEVELOPMENT MANAGER) Outpatient Attender: SIOBHAN GONZALES NP [facility] Yoandy coppola 01/31/2020 04:30:00 AM EDT - 01/31/2020 04:30:00 AM EDT [facility] ([facility]) Attender: SIOBHAN GONZALES NP 01/31/2020 12:00:00 AM EDT [facility] ([facility]) Outpatient Attender: SIOBHAN GONZALES NP [facility] Yoandy coppola 01/03/2020 04:30:00 AM EDT - 01/03/2020 04:30:00 AM EDT [facility] ([facility]) Attender: SIOBHAN GONZALES NP 01/03/2020 12:00:00 AM EDT [facility] ([facility]) Outpatient Attender: SIOBHAN GONZALES NP [facility] anat 11/16/2019 04:30:00 AM EDT - 11/16/2019 04:30:00 AM EDT [facility] ([facility]) Attender: SIOBHAN GONZALES NP 11/16/2019 12:00:00 AM EDT [facility] ([facility]) Attender: Bernice Calvo 11/10/2019 12:00:00 AM EDT [facility] ([facility]) Extended Individual Psychotherapy - 45 min Attender: Bernice Umesh [facility] 11/09/2019 05:45:00 AM EDT - 11/09/2019 05:45:00 AM EDT [facility] ([facility]) Extended Individual Psychotherapy - 45 min Attender: Bernice Umesh [facility] 10/20/2019 02:00:00 AM EST - 10/20/2019 02:00:00 AM EST [facility] ([facility]) Attender: Bernice Calvo 10/20/2019 12:00:00 AM EST [facility] ([facility]) Outpatient Attender: VIGNESH [employer] 08:00:00 AM EST [facility] ([employer] EDUCATION AND DEVELOPMENT MANAGER) Outpatient Attender: SIOBHAN GONZALES NP [facility] Yoandy coppola 10/11/2019 04:30:00 AM EST - 10/11/2019 04:30:00 AM EST [facility] ([facility]) Attender: SIOBHAN GONZALES NP 10/11/2019 12:00:00 AM EST [facility] ([facility]) Brief Individual Psychotherapy - 30 min Attender: Bernice regalado [facility] 10/09/2019 04:45:00 AM EST - 10/09/2019 04:45:00 AM EST [facility] ([facility]) Attender: Bernice Umesh 10/09/2019 12:00:00 AM EST [facility] ([facility]) Attender: Bernice Calvo 10/09/2019 12:00:00 AM EST [facility] ([facility]) Extended Individual Psychotherapy - 45 min Attender: Bernice Calvo [facility] 09/26/2019 04:45:00 AM EST - 09/26/2019 04:45:00 AM EST [facility] ([facility]) Outpatient Attender: SIOBHAN GONZALES NP [facility] Yoandy coppola 09/21/2019 04:30:00 AM EST - 09/21/2019 04:30:00 AM EST [facility] ([facility]) Attender: SIOBHAN GONZALES NP 09/21/2019 12:00:00 AM EST [facility] ([facility]) Extended Individual Psychotherapy - 45 min [facility] 05:00:00 AM EST - 09/11/2019 05:00:00 AM EST [facility] ([facility]) Attender: Bernice Calvo 09/11/2019 12:00:00 AM EST [facility] ([facility]) Outpatient Attender: SIOBHAN GONZALES NP [facility] Yoandy coppola 08/30/2019 04:00:00 AM EST - 08/30/2019 04:00:00 AM EST [facility] ([facility]) Attender: SIOBHAN GONZALES NP 08/30/2019 12:00:00 AM EST [facility] ([facility]) Attender: Bernice Calvo 08/29/2019 12:00:00 AM EST [facility] ([facility]) Extended Individual Psychotherapy - 45 min Attender: Bernice Umesh [facility] Longterm 08/28/2019 05:00:00 AM EST - 08/28/2019 05:00:00 AM EST [facility] ([facility]) [facility] [address] [facility] [address] 08/24/2019 12:00:00 AM EST eCW1 ([facility]) Functional Status Medications Medication Brand Name Start Date Product Form Dose Route Admi nistrative Instructions Pharmacy Instructions Status Indications Reaction Description Data Source(s) 300 mg 09/23/2020 12:00:00 AM EST capsule 20 TAKE ONE CAPSULE BY MOUTH EVERY 12 HOURS FOR 10 DAYS TAKE ONE CAPSULE BY MOUTH EVERY 12 HOURS FOR 10 DAYS S OLD: 09/28/2020 [facility] 50 mg 09/16/2020 12:00:00 AM EST tablet 30 TAKE 1/2 TO 1 FULL TABLET BY MOUTH AT BEDTIME NEEDED TAKE 1/2 TO 1 FULL TABLET BY MOUTH AT BE DTIME NEEDED SOLD: 09/17/2020 [facility] Trazodone Hydrochloride 50 MG Oral Tablet trazodone 2020 12:00:00 AM EST 50 mg by mouth completed [id number] trazodone by mouth [id number] 09/16/2020 12/15/2020 every evening 30 50 mg tablet [id number] Viv Gillespie [id number] Psychiatric/Mental Health [facility] ([facility]) 3 mg 09/15/2020 12:00:00 AM EST capsule 30 TAKE ONE CAPSULE BY MOUTH ONCE A DAY TAKE ONE CAPSULE BY MOUTH ONCE A DAY SOLD: 09/17/2020 [facility] 17 gram/dose 09/11/2020 12:00:00 AM EST powder 510 USE 1 CAPFUL MIXED WITH 8 OUNCES OF FLUID ONCE A DAY USE 1 CAPFUL MIXED WITH 8 OUNCES OF FLUI D ONCE A DAY SOLD: 09/17/2020 [facility] 10 mg 09/05/2020 12:00:00 AM EST tablet 35 TAKE 4 TABLETS BY MOUTH ONCE DAILY FOR 3 DAYS THEN 3 DAILY FOR 3 DAYS THEN 2 DAILY FOR 3 DAYS THEN 1 DAILY FOR 5 DAYS THEN 1/2 TABLET DAILY FOR 6 DAYS TAKE 4 TABLETS BY MOUTH ONCE DAILY FOR 3 DAYS THEN 3 DAILY FOR 3 DAYS THEN 2 DAILY FOR 3 DAYS THEN 1 DAILY FOR 5 DAYS THEN 1/2 TABLET DAILY FOR 6 DAYS SOLD: 09/05/2020 [facility] Vraylar Vraylar 09/05/2020 12:00:00 AM EST 3 mg by mouth completed [id number] Vraylar by mouth [id number] 09/05/2020 once a day 3 mg capsule [id number] Viv Gillespie [id number] Psychiatric/Mental Health [facility] ([facility]) Fluconazole 150 MG Oral Tablet [Diflucan] Diflucan 150 MG Di flucan 150 MG 09/05/2020 12:00:00 AM EST active Diflucan 150 MG eCW1 ([facility]) Amoxicillin 250 MG Oral Capsule Amoxicillin 250 MG 09/05/2020 12:00 :00 AM EST 1.0 {capsule} active Amoxicillin 250 MG eCW1 ([facility]) Amoxicillin 250 MG Oral Capsule Amoxicillin 250 MG 09/05/2020 12:00 :00 AM EST 1.0 {capsule} active Amoxicillin 250 MG eCW1 ([facility]) Fluconazole 150 MG Oral Tablet [Diflucan] Diflucan 150 MG Di flucan 150 MG 09/05/2020 12:00:00 AM EST active Diflucan 150 MG eCW1 ([facility]) Fluconazole 150 MG Oral Tablet [Diflucan] Diflucan 150 MG Di flucan 150 MG 09/05/2020 12:00:00 AM EST active Diflucan 150 MG eCW1 ([facility]) 250 mg 09/05/2020 12:00:00 AM EST capsule 40 TAKE ONE CAPSULE BY MOUTH FOUR TIMES A DAY TAKE ONE CAPSULE BY MOUTH FOUR TIMES A DAY SOLD: 09/05/2020 [facility] Amoxicillin 250 MG Oral Capsule Amoxicillin 250 MG 09/05/2020 12:00 :00 AM EST 1.0 {capsule} active Amoxicillin 250 MG eCW1 ([facility]) 300 mg 09/05/2020 12:00:00 AM EST capsule 90 TAKE THREE CAPSULES BY MOUTH ONCE A DAY TAKE THREE CAPSULES BY MOUTH ONCE A DAY SOLD: 09/05/2020 [facility] 150 mg 09/05/2020 12:00:00 AM EST tablet 2 TAKE 1 TAKE TABLET BY MOUTH TODAY REPEAT FOR 1 DOSE IN 10 DAYS TAKE 1 TAKE TABLET BY MOUTH TODAY REPEAT FOR 1 DOSE IN 10 DAYS SOLD: 09/05/2020 [facility] adapalene 0.001 MG/MG Topical Gel [Differin] Differin 0.1 % Differin 0.1 % 08/27/2020 12:00:00 AM EST active Differin 0.1 % eCW1 ([facility]) adapalene 0.001 MG/MG Topical Gel [Differin] Differin 0.1 % Differin 0.1 % 08/27/2020 12:00:00 AM EST active Differin 0.1 % eCW1 ([facility]) adapalene 0.001 MG/MG Topical Gel [Differin] Differin 0.1 % Differin 0.1 % 08/27/2020 12:00:00 AM EST active Differin 0.1 % eCW1 ([facility]) adapalene 0.001 MG/MG Topical Gel [Differin] Differin 0.1 % Differin 0.1 % 08/27/2020 12:00:00 AM EST active Differin 0.1 % eCW1 ([facility]) Margarito 91 Day Pack 0.15 mg-30 mcg (91) LEVONORGESTREL/ETHI NYL ESTRADIOL 08/19/2020 12:00:00 AM EST tablets,dose pack,3 month 91 TAKE ONE TABLET BY MOUTH EVERY DAY TAKE ONE TABLET BY MOUTH EVERY DAY SOLD: 08/21/2020 [facility] 150 mg 07/31/2020 12:00:00 AM EST tablet 2 TAKE 1 TABLET BY MOUTH NOW AND 1 TABLET TOMORROW TAKE 1 TABLET BY MOUTH NOW AND 1 TABLET TOMORROW SOLD: 08/10/2020 [facility] 100 mg 07/30/2020 12:00:00 AM EST tablet 60 TAKE TWO TABLETS BY MOUTH EVERY DAY TAKE TWO TABLETS BY MOUTH EVERY DAY SOLD: 08/10/2020 [facility] 100 mg 07/30/2020 12:00:00 AM EST tablet 60 TAKE TWO TABLETS BY MOUTH EVERY DAY TAKE TWO TABLETS BY MOUTH EVERY DAY SOLD: 09/17/2020 [facility] 300 mg 07/17/2020 12:00:00 AM EST capsule 90 TAKE THREE CAPSULES BY MOUTH EVERY DAY TAKE THREE CAPSULES BY MOUTH EVERY DAY SOLD: 09/28/2020 [facility] 300 mg 07/17/2020 12:00:00 AM EST capsule 90 TAKE THREE CAPSULES BY MOUTH EVERY DAY TAKE THREE CAPSULES BY MOUTH EVERY DAY SOLD: 08/21/2020 [facility] 300 mg 07/17/2020 12:00:00 AM EST capsule 90 TAKE THREE CAPSULES BY MOUTH EVERY DAY TAKE THREE CAPSULES BY MOUTH EVERY DAY SOLD: 07/19/2020 [facility] Nystatin [id number] UNT/ML Topical Cream 100,000 unit/gram NYSTA TIN 06/25/2020 12:00:00 AM EST cream 60 APPLY TWO TIMES A DAY NEEDED TO AFFECTED AREA GROIN AND VULVA APPLY TWO TIMES A DAY NEEDED TO AFFEC KATJA AREA GROIN AND VULVA SOLD: 08/28/2020 [facility] Fluconazole 150 MG Oral Tablet Fluconazole 06/25/2020 12:00:00 AM EST ORAL active [facility] (Emeka Bonilla oman [employer]UC[employer]OP[employer]NA[employer]) Nystatin 299862 UNT/ML Topical Cream Nystatin 06/25/2020 12:00:00 AM EST active [facility] (Emeka underwood [employer]UCATION AND DEVELOPMENT MANAGER) 150 mg 06/25/2020 12:00:00 AM EST tablet 2 TAKE 1 TABLET BY MOUTH NOW AND 1 TOMORROW TAKE 1 TABLET BY MOUTH NOW AND 1 TOMORROW SOLD: 07/27/2020 [facility] Nystatin 164714 UNT/ML Topical Cream 100,000 unit/gram NYSTA TIN 06/25/2020 12:00:00 AM EST cream 60 APPLY TWO TIMES A DAY NEEDED TO AFFECTED AREA GROIN AND VULVA APPLY TWO TIMES A DAY NEEDED TO AFFEC KATJA AREA GROIN AND VULVA SOLD: 07/27/2020 [facility] 150 mg 06/25/2020 12:00:00 AM EST tablet 2 TAKE 1 TABLET BY MOUTH NOW AND 1 TOMORROW TAKE 1 TABLET BY MOUTH NOW AND 1 TOMORROW SOLD: 06/25/2020 [facility] Nystatin [id number] UNT/ML Topical Cream 100,000 unit/gram NYSTA TIN 06/25/2020 12:00:00 AM EST cream 60 APPLY TWO TIMES A DAY NEEDED TO AFFECTED AREA GROIN AND VULVA APPLY TWO TIMES A DAY NEEDED TO AFFEC KATJA AREA GROIN AND VULVA SOLD: 06/25/2020 [facility] 150 mg 06/25/2020 12:00:00 AM EST tablet 2 TAKE 1 TABLET BY MOUTH NOW AND 1 TOMORROW TAKE 1 TABLET BY MOUTH NOW AND 1 TOMORROW SOLD: 08/21/2020 [facility] 150 mg 06/25/2020 12:00:00 AM EST tablet 2 TAKE 1 TABLET BY MOUTH NOW AND 1 TOMORROW TAKE 1 TABLET BY MOUTH NOW AND 1 TOMORROW SOLD: 07/14/2020 [facility] 100 mg 06/11/2020 12:00:00 AM EDT tablet 60 TAKE TWO TABLETS BY MOUTH EVERY DAY TAKE TWO TABLETS BY MOUTH EVERY DAY SOLD: 08/28/2020 [facility] 100 mg 06/11/2020 12:00:00 AM EDT tablet 60 TAKE TWO TABLETS BY MOUTH EVERY DAY TAKE TWO TABLETS BY MOUTH EVERY DAY SOLD: 06/12/2020 [facility] 100 mg 06/11/2020 12:00:00 AM EDT tablet 60 TAKE TWO TABLETS BY MOUTH EVERY DAY TAKE TWO TABLETS BY MOUTH EVERY DAY SOLD: 07/14/2020 [facility] 50 mcg 04/11/2020 12:00:00 AM EDT tablet 90 TAKE ONE TABLET BY MOUTH EVERY DAY TAKE ONE TABLET BY MOUTH EVERY DAY SOLD: 07/14/2020 [facility] 50 mcg 04/11/2020 12:00:00 AM EDT tablet 90 TAKE ONE TABLET BY MOUTH EVERY DAY TAKE ONE TABLET BY MOUTH EVERY DAY SOLD: 04/14/2020 [facility] 50 mg 03/27/2020 12:00:00 AM EDT tablet 30 TAKE 1 TABLET BY MOUTH ONCE DAILY NEEDED FOR PAIN MAXIMUM DAILY DOSE = 1 TABLET TAKE 1 TABLET BY MOUTH ONCE DAILY NEEDED FOR PAIN MAXIMUM DAILY DOSE = 1 TABLET SOLD: 08/21/2020 [facility] 50 mg 03/27/2020 12:00:00 AM EDT tablet 30 TAKE 1 TABLET BY MOUTH ONCE DAILY NEEDED FOR PAIN MAXIMUM DAILY DOSE = 1 TABLET TAKE 1 TABLET BY MOUTH ONCE DAILY NEEDED FOR PAIN MAXIMUM DAILY DOSE = 1 TABLET SOLD: 09/28/2020 [facility] 50 mg 03/27/2020 12:00:00 AM EDT tablet 30 TAKE 1 TABLET BY MOUTH ONCE DAILY NEEDED FOR PAIN MAXIMUM DAILY DOSE = 1 TABLET TAKE 1 TABLET BY MOUTH ONCE DAILY NEEDED FOR PAIN MAXIMUM DAILY DOSE = 1 TABLET SOLD: 04/07/2020 [facility] 50 mg 03/27/2020 12:00:00 AM EDT tablet 30 TAKE 1 TABLET BY MOUTH ONCE DAILY NEEDED FOR PAIN MAXIMUM DAILY DOSE = 1 TABLET TAKE 1 TABLET BY MOUTH ONCE DAILY NEEDED FOR PAIN MAXIMUM DAILY DOSE = 1 TABLET SOLD: 05/15/2020 [facility] 50 mg 03/27/2020 12:00:00 AM EDT tablet 30 TAKE 1 TABLET BY MOUTH ONCE DAILY NEEDED FOR PAIN MAXIMUM DAILY DOSE = 1 TABLET TAKE 1 TABLET BY MOUTH ONCE DAILY NEEDED FOR PAIN MAXIMUM DAILY DOSE = 1 TABLET SOLD: 06/22/2020 [facility] 10 mg 03/19/2020 12:00:00 AM EDT tablet 30 TAKE ONE TABLET BY MOUTH EVERY DAY TAKE ONE TABLET BY MOUTH EVERY DAY SOLD: 03/24/2020 [facility] 300 mg 03/14/2020 12:00:00 AM EDT capsule 90 TAKE THREE CAPSULES BY MOUTH EVERY DAY TAKE THREE CAPSULES BY MOUTH EVERY DAY SOLD: 04/14/2020 [facility] 300 mg 03/14/2020 12:00:00 AM EDT capsule 90 TAKE THREE CAPSULES BY MOUTH EVERY DAY TAKE THREE CAPSULES BY MOUTH EVERY DAY SOLD: 05/15/2020 [facility] 50 mg 03/14/2020 12:00:00 AM EDT tablet 30 TAKE 1/2-1 TABLET BY MOUTH AT BEDTIME TAKE 1/2-1 TABLET BY MOUTH AT BEDTIME SOLD: 03/17/2020 [facility] 50 mg 03/14/2020 12:00:00 AM EDT tablet 30 TAKE 1/2-1 TABLET BY MOUTH AT BEDTIME TAKE 1/2-1 TABLET BY MOUTH AT BEDTIME SOLD: 04/14/2020 [facility] 50 mg 03/14/2020 12:00:00 AM EDT tablet 30 TAKE 1/2-1 TABLET BY MOUTH AT BEDTIME TAKE 1/2-1 TABLET BY MOUTH AT BEDTIME SOLD: 05/15/2020 [facility] 300 mg 03/14/2020 12:00:00 AM EDT capsule 90 TAKE THREE CAPSULES BY MOUTH EVERY DAY TAKE THREE CAPSULES BY MOUTH EVERY DAY SOLD: 03/17/2020 [facility] 100 mg 03/13/2020 12:00:00 AM EDT tablet 60 TAKE TWO TABLETS BY MOUTH EVERY DAY TAKE TWO TABLETS BY MOUTH EVERY DAY SOLD: 04/14/2020 [facility] Trazodone Hydrochloride 50 MG Oral Tablet trazodone 2019 12:00:00 AM EDT 50 mg by mouth completed [id number] trazodone by mouth [id number] 03/13/2020 06/11/2020 every evening 30 50 mg tablet [id number] Siobhan Gonzales [id number] Psychiatric/Mental Health [facility] 100 mg 03/13/2020 12:00:00 AM EDT tablet 60 TAKE TWO TABLETS BY MOUTH EVERY DAY TAKE TWO TABLETS BY MOUTH EVERY DAY SOLD: 05/15/2020 [facility] 100 mg 03/13/2020 12:00:00 AM EDT tablet 60 TAKE TWO TABLETS BY MOUTH EVERY DAY TAKE TWO TABLETS BY MOUTH EVERY DAY SOLD: 03/17/2020 [facility] 50 mcg 12/30/2019 12:00:00 AM EDT tablet 30 TAKE ONE TABLET BY MOUTH EVERY MORNING ON AN EMPTY STOMACH TAKE ONE TABLET BY MOUTH EVERY MORNING O N AN EMPTY STOMACH SOLD: 12/31/2019 [facility] 50 mcg 12/30/2019 12:00:00 AM EDT tablet 30 TAKE ONE TABLET BY MOUTH EVERY MORNING ON AN EMPTY STOMACH TAKE ONE TABLET BY MOUTH EVERY MORNING O N AN EMPTY STOMACH SOLD: 01/31/2020 [facility] 50 mcg 12/30/2019 12:00:00 AM EDT tablet 30 TAKE ONE TABLET BY MOUTH EVERY MORNING ON AN EMPTY STOMACH TAKE ONE TABLET BY MOUTH EVERY MORNING O N AN EMPTY STOMACH SOLD: 03/10/2020 [facility] 0.3-30 mg-mcg 12/18/2019 12:00:00 AM EDT tablet 84 TAKE ONE TABLET BY MOUTH EVERY DAY TAKE ONE TABLET BY MOUTH EVERY DAY SOLD: 03/10/2020 [facility] 0.3-30 mg-mcg 12/18/2019 12:00:00 AM EDT tablet 84 TAKE ONE TABLET BY MOUTH EVERY DAY TAKE ONE TABLET BY MOUTH EVERY DAY SOLD: 06/02/2020 [facility] 0.3-30 mg-mcg 12/18/2019 12:00:00 AM EDT tablet 84 TAKE ONE TABLET BY MOUTH EVERY DAY TAKE ONE TABLET BY MOUTH EVERY DAY SOLD: 12/18/2019 [facility] 100 mg 11/24/2019 12:00:00 AM EDT tablet 60 TAKE TWO TABLETS BY MOUTH EVERY DAY TAKE TWO TABLETS BY MOUTH EVERY DAY SOLD: 12/09/2019 [facility] 100 mg 11/24/2019 12:00:00 AM EDT tablet 60 TAKE TWO TABLETS BY MOUTH EVERY DAY TAKE TWO TABLETS BY MOUTH EVERY DAY SOLD: 02/13/2020 [facility] 100 mg 11/24/2019 12:00:00 AM EDT tablet 60 TAKE TWO TABLETS BY MOUTH EVERY DAY TAKE TWO TABLETS BY MOUTH EVERY DAY SOLD: 01/15/2020 [facility] 300 mg 11/17/2019 12:00:00 AM EDT capsule 90 TAKE THREE CAPSULES BY MOUTH EVERY DAY TAKE THREE CAPSULES BY MOUTH EVERY DAY SOLD: 11/22/2019 [facility] 300 mg 11/17/2019 12:00:00 AM EDT capsule 90 TAKE THREE CAPSULES BY MOUTH EVERY DAY TAKE THREE CAPSULES BY MOUTH EVERY DAY SOLD: 12/31/2019 [facility] 300 mg 11/17/2019 12:00:00 AM EDT capsule 90 TAKE THREE CAPSULES BY MOUTH EVERY DAY TAKE THREE CAPSULES BY MOUTH EVERY DAY SOLD: 01/31/2020 [facility] Propranolol Hydrochloride 10 MG Oral Tablet propranolol 10/11/2019 12:00:00 AM EST 10 mg by mouth completed [id number] propranolol by [facility] [id number] 10/11/2019 01/09/2020 three times a day 30 10 mg tablet as [facility] [id number] Siobhan Gonzales [id number] Psychiatric[facility]Mental Health [facility]) Propranolol Hydrochloride 10 MG Oral Tablet propranolol 10/11/2019 12:00:00 AM EST 10 mg by mouth completed [id number] propranolol by [facility] [id number] 10/11/2019 01/09/2020 three times a day 30 10 mg tablet as [facility] [id number] Siobhan Gonzales [id number] Psych[facility] Health [facility] ([facility]) 300 mg 09/22/2019 12:00:00 AM EST capsule 90 TAKE THREE CAPSULES BY MOUTH EVERY DAY TAKE THREE CAPSULES BY MOUTH EVERY DAY SOLD: 12/09/2019 [facility] 10 mg 09/22/2019 12:00:00 AM EST tablet 60 TAKE ONE TABLET BY MOUTH TWICE A DAY TAKE ONE TABLET BY MOUTH TWICE A DAY SOLD: 09/22/2019 [facility] 300 mg 09/22/2019 12:00:00 AM EST capsule 90 TAKE THREE CAPSULES BY MOUTH EVERY DAY TAKE THREE CAPSULES BY MOUTH EVERY DAY SOLD: 10/22/2019 [facility] 300 mg 09/22/2019 12:00:00 AM EST capsule 90 TAKE THREE CAPSULES BY MOUTH EVERY DAY TAKE THREE CAPSULES BY MOUTH EVERY DAY SOLD: 09/22/2019 [facility] [place] Carbonate 300 MG Oral Capsule lithium carbonate 12:00:00 AM EST 300 mg completed [id number] lithium carbonate 09/21/2019 once a day 300 mg capsule [id number] Viv Gillespie [id number] Psych[facility]Mental [facility] ([facility]) 100 mg 08/31/2019 12:00:00 AM EST tablet 60 TAKE TWO TABLETS BY MOUTH EVERY DAY TAKE TWO TABLETS BY MOUTH EVERY DAY SOLD: 11/05/2019 [facility] 150 mg 08/31/2019 12:00:00 AM EST capsule 30 TAKE ONE CAPSULE BY MOUTH EVERY DAY TAKE A TOTAL DOSE OF 750 MG TAKE ONE CAPSULE BY MOUTH EVERY DAY TAKE A TOTAL DOSE OF 750 MG SOLD: 09/03/2019 [facility] 100 mg 08/31/2019 12:00:00 AM EST tablet 60 TAKE TWO TABLETS BY MOUTH EVERY DAY TAKE TWO TABLETS BY MOUTH EVERY DAY SOLD: 10/07/2019 [facility] 150 mg 08/31/2019 12:00:00 AM EST capsule 30 TAKE ONE CAPSULE BY MOUTH EVERY DAY TAKE A TOTAL DOSE OF 750 MG TAKE ONE CAPSULE BY MOUTH EVERY DAY TAKE A TOTAL DOSE OF 750 MG SOLD: 11/05/2019 [facility] 300 mg 08/31/2019 12:00:00 AM EST capsule 60 TAKE TWO CAPSULES BY MOUTH EVERY DAY TAKE TWO CAPSULES BY MOUTH EVERY DAY SOLD: 09/03/2019 [facility] 150 mg 08/31/2019 12:00:00 AM EST capsule 30 TAKE ONE CAPSULE BY MOUTH EVERY DAY TAKE A TOTAL DOSE OF 750 MG TAKE ONE CAPSULE BY MOUTH EVERY DAY TAKE A TOTAL DOSE OF 750 MG SOLD: 10/07/2019 [facility] 100 mg 08/31/2019 12:00:00 AM EST tablet 60 TAKE TWO TABLETS BY MOUTH EVERY DAY TAKE TWO TABLETS BY MOUTH EVERY DAY SOLD: 09/03/2019 [facility] [place] Carbonate 150 MG Oral Capsule lithium carbonate 12:00:00 AM EST 150 mg completed [id number] lithium carbonate 08/30/2019 09/21/2019 once a day 150 mg capsule [id number] Anat Gonzales [id number] [facility] ([facility]) [place] Carbon[place] 300 MG Oral Capsule lithium carbonate 12:00:00 AM EST 300 mg completed [id number] lithium carbonate 08/30/2019 once a day 300 mg capsule 05903 [id number] Siobhan Gonzales [id number] Psychiatric/Mental Health [facility] ([facility]) [place] Carbon[place] 300 MG Oral Capsule lithium carbonate 12:00:00 AM EST 300 mg completed [id number] lithium carbonate 08/30/2019 09/21/2019 once a day 300 mg capsule 80558 [id number] Anat Gonzales [id number] Psych[facility]Mental Health [facility] ([facility]) 50 mcg 06/30/2019 12:00:00 AM EST tablet 90 TAKE ONE TABLET BY MOUTH EVERY MORNING TAKE ONE TABLET BY MOUTH EVERY MORNING SOLD: 10/07/2019 [facility] Tretinoin 1 MG/ML Topical Cream tretinoin (RETIN-A) 0. 1 % cream tretinoin (RETIN-A) 0.1 % cream 11/28/2018 12:00:00 AM EDT active Acne vulgaris Apply to affected areas Q hs , Alternate QOD, if too d [facility] Acne vulgaris 0.3-30 mg-mcg 10/10/2018 12:00:00 AM EST tablet 84 TAKE ONE TABLET BY MOUTH EVERY DAY TAKE ONE TABLET BY MOUTH EVERY DAY SOLD: 09/22/2019 [facility] Insurance Providers Payer name Policy type / Coverage type Policy ID Covered alliance party ID Covered alliance party's relationship to salcedo Policy [place] Plan Information [place] 302/307 [id number] SP [id number] EXCELLUS H [id number] Self [id number] [place] [id number] S [id number] [place] WAT[place] 306/806 [id number] SP [id number] SOURAV [id number] SP [id number] BS iFACETS Medigap Part B [id number] Self V [id number] BS iFACETS Medigap Part B [id number] Self V [id number] BS Of [place] Commercial [id number] Self [id number] EXCELLUS C [id number] Self [id number] [place] PPO 302/307 [id number] SP [id number] [place] PPO 302/307 [id number] SP [id number] [place] PPO 302/307 [id number] SP [id number] [place] PPO 302/307 [id number] SP [id number] [facility] MCDO [id number] SP [id number] MEDICAID [id number] SP [id number] [place] PPO 302/307 [id number] SP [id number] [facility] COMM[facility] PLAN [facility] [id number] SP [id number] [facility] [id number] SP [id number] MEDICAID [id number] SP [id number] MEDICAID [id number] SP [id number] BC[place] OF [place] [id number] HMO BLUE [id number] HMO BLUE [id number] FA [id number] ANSI-Commercial [id number] ANSI-Commercial [id number] ANSI-Commercial [id number] ANSI-Commercial [id number] ANSI-Commercial [id number] ANSI-Commercial [id number] EXCELLUS H [id number] Self [id number] EXCELLUS H [id number] Self [id number] EXCELLUS H [id number] Self [id number] [facility] I [id number] Self [id number] [facility] P [id number] S [id number] MEDICAID [id number] Self [id number] EXCELLUS BCBS S [id number] S [id number] EXCELLUS H [id number] Self [id number] SELF PAY [facility]ABLE [facility] [id number] SP [id number] BC[place] O [id number] S [id number] MEDICAID W [id number] S [id number] [facility] MEDICARE COMPLET O [id number] S [id number] PCP [facility] COMMUN[address] O [id number] S [id number] Problems, Conditions, and Diagnoses Code Display Name Description Problem Type Effective Dates Data Source(s) F50.8 Other eating disorders Binge-Eating Disorder Condition 10/01/2020 12:00:00 AM EST [facility] ([facility]) F41.1 Generalized anxiety disorder Generalized Anxiety Disor mindy Condition 10/01/2020 12:00:00 AM EST [facility] ([facility]) 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 Body Dysmorphic Disorder Cond ition 07/23/2020 12:00:00 AM EST [facility] ([facility]) F42.2 Mixed obsessional thoughts and acts Obsessive-Co mpulsive Disorder Condition 07/23/2020 12:00:00 AM EST [facility] ([facility]) M05.79 Rheumatoid arthritis with rh eumatoid factor of multiple sites without organ or systems involvement Rheumatoid arthritis with rheumatoid fac tor of multiple sites without organ or systems involvement Diagnosis 01:41:58 PM [facility] Surgeries/Procedures Procedure Description Date Indications Data Source(s) Extended Individual Psychotherapy - 45 min 10/01/2020 12:00:00 AM EST - 10/01/2020 12:00:00 AM EST [facility] ([facility]) Extended Individual Psychotherapy - 45 min 12:00:00 AM EST [facility] ([facility]) [facility] Telemed E/M Lvl 3--Est pt 09/05/2020 12:00:00 AM EST - 09/05/2020 12:00:00 AM EST [facility] ([facility]) Telemed A/O 30" 09/05/2020 12:00:00 AM EST [facility] ([facility]) [facility] Telemed E/M Lvl 3--Est pt 09/05/2020 12:00:[address] [facility] ([facility]) Extended Individual Psychotherapy - 45 min 08/19/2020 12:00:00 AM EST - 08/19/2020 12:00:00 AM EST [facility] ([facility]) Extended Individual Psychotherapy - 45 min 0 12:00:00 AM EST [facility] ([facility]) Extended Individual Psychotherapy - 45 min 08/09/2020 12:00:00 AM EST - 08/09/2020 12:00:00 AM EST [facility] ([facility]) Extended Individual Psychotherapy - 45 min 0 12:00:00 AM EST [facility] ([facility]) OFFICE OUTPATIENT VISIT 15 MINUTES 08/08 12:00:00 AM EST - 08/08/2020 12:00:00 AM EST [facility] ([facility]) Psychotherapy ADD ON - 30 Minutes 08/08/2020 12:00:00 AM EST [facility] ([facility]) OFFICE OUTPATIENT VISIT 15 MINUTES 08/08/2020 12:00:00 AM EST [facility] ([facility]) [facility] Telemed E/M Lvl 3--Est pt 07/23/2020 12:00:00 AM EST - 07/23/2020 12:00:00 AM EST [facility] ([facility]) Telemed A/O 45" 07/23/2020 12:00:00 AM EST [facility] ([facility]) [facility] Telemed E/M Lvl 3--Est pt 07/23/2020 12:00:[address] [facility] ([facility]) Extended Individual Psychotherapy - 45 min 06/25/2020 12:00:00 AM EST - 06/25/2020 12:00:00 AM EST [facility] ([facility]) Extended Individual Psychotherapy - 45 min 0 12:00:00 AM EST [facility] ([facility]) Extended Individual Psychotherapy - 45 min 06/03/2020 12:00:00 AM EDT - 06/03/2020 12:00:00 AM EDT [facility] ([facility]) Extended Individual Psychotherapy - 45 min 0 12:00:00 AM EDT [facility] ([facility]) Extended Individual Psychotherapy - 45 min 05/22/2020 12:00:00 AM EDT - 05/22/2020 12:00:00 AM EDT [facility] ([facility]) Extended Individual Psychotherapy - 45 min 0 12:00:00 AM EDT [facility] ([facility]) Extended Individual Psychotherapy - 45 min 05/17/2020 12:00:00 AM EDT - 05/17/2020 12:00:00 AM EDT [facility] ([facility]) Extended Individual Psychotherapy - 45 min 0 12:00:00 AM EDT [facility] ([facility]) [facility] Telemed E/M Lvl 3--Est pt 05/16/2020 12:00:00 AM EDT - 05/16/2020 12:00:00 AM EDT [facility] ([facility]) [facility] Telemed E/M Lvl 3--Est pt 05/16/2020 12:00:00 AM E DT [facility] ([facility]) [facility] Telemed E/M Lvl 3--Est pt 05/02/2020 12:00:00 AM EDT - 05/02/2020 12:00:00 AM EDT [facility] ([facility]) [facility] Telemed E/M Lvl 3--Est pt 05/02/2020 12:00:00 AM E DT [facility] ([facility]) [facility] Telemed E/M Lvl 3--Est pt 01/31/2020 12:00:00 AM EDT - 01/31/2020 12:00:00 AM EDT [facility] ([facility]) [facility] Telemed E/M Lvl 3--Est pt 01/31/2020 12:00:00 AM E DT [facility] ([facility]) [facility] Telemed E/M Lvl 3--Est pt 01/03/2020 12:00:00 AM EDT - 01/03/2020 12:00:00 AM EDT [facility] ([facility]) [facility] Telemed E/M Lvl 3--Est pt 01/03/2020 12:00:00 AM E DT [facility] ([facility]) [facility] Tele[facility] E/M Lvl 3--Est pt 11/16/2019 12:00:00 AM EDT - 11/16/2019 12:00:00 AM EDT [facility] ([facility]) [facility] Telemed E/M Lvl 3--Est pt 11/16/2019 12:00:00 AM E DT [facility] ([facility]) Extended Individual Psychotherapy - 45 min 11/10/2019 12:00:00 AM EDT - 11/10/2019 12:00:00 AM EDT [facility] ([facility]) Extended Individual Psychotherapy - 45 min 0 12:00:00 AM EDT [facility] ([facility]) Extended Individual Psychotherapy - 45 min 10/20/2019 12:00:00 AM EST - 10/20/2019 12:00:00 AM EST [facility] ([facility]) Extended Individual Psychotherapy - 45 min 0 12:00:00 AM EST [facility] ([facility]) OFFICE OUTPATIENT VISIT 15 MINUTES 10/11 12:00:00 AM EST - 10/11/2019 12:00:00 AM EST [facility] ([facility]) OFFICE OUTPATIENT VISIT 15 MINUTES 10/11/2019 12:00:00 AM EST [facility] ([facility]) Brief Individual Psychotherapy - 30 min 10/09/2019 12:00:00 AM EST - 10/09/2019 12:00:00 AM EST [facility] ([facility]) Brief Individual Psychotherapy - 30 min 10/09/2019 12: 00:00 AM EST [facility] ([facility]) Extended Individual Psychotherapy - 45 min 10/09/2019 12:00:00 AM EST - 10/09/2019 12:00:00 AM EST [facility] ([facility]) Extended Individual Psychotherapy - 45 min 0 12:00:00 AM EST [facility] ([facility]) OFFICE OUTPATIENT VISIT 15 MINUTES 09/21 12:00:00 AM EST - 09/21/2019 12:00:00 AM EST [facility] ([facility]) OFFICE OUTPATIENT VISIT 15 MINUTES 09/21/2019 12:00:00 AM EST [facility] ([facility]) Extended Individual Psychotherapy - 45 min 09/11/2019 12:00:00 AM EST - 09/11/2019 12:00:00 AM EST [facility] ([facility]) Extended Individual Psychotherapy - 45 min 0 12:00:00 AM EST [facility] ([facility]) OFFICE OUTPATIENT VISIT 15 MINUTES 08/30 12:00:00 AM EST - 08/30/2019 12:00:00 AM EST [facility] ([facility]) OFFICE OUTPATIENT VISIT 15 MINUTES 08/30/2019 12:00:00 AM EST [facility] ([facility]) Extended Individual Psychotherapy - 45 min 08/29/2019 12:00:00 AM EST - 08/29/2019 12:00:00 AM EST [facility] ([facility]) Extended Individual Psychotherapy - 45 min 0 12:00:00 AM EST [facility] ([facility]) Influenza immunization was not administe red for reasons documented by clinician (e.g., patient allergy or other medical reasons, patient declined or other patient reasons, vaccine not available or other system reasons) 08/24/2019 12:00:00 AM EST eCW1 ([facility]) Results ID Date Data Source [id number] 09/23/2020 12:00:00 AM EST [facility] Name Value Range Interpretation Code Description Data Zoraida rce(s) Supporting Document(s) SARS-CoV2 Rapid Antigen Negative [facility] This lab was ordered by [facility] and reported by [facility]. ID Date Data Source [id number] 06/25/2020 12:00:00 PM EST [facility] ([facility] [employer]UCATION AND DEVELOPMENT MANAGER) Name Value Range Interpretation Code Description Data Zoraida rce(s) Supporting Document(s) CT/NG Laboratory test result [facility] ([facility] EDUCATION AND DEVELOPMENT MANAGER) CHLAMYDIA TRACHOMATIS: Negative NEISSERIA GONORRHOEAE: Negative Testing performed by the FDA-approved Target Datagic APTIMA COMBO 2 Assay. The APTIMA COMBO 2 Assay is designed to detect the presence of Chlamydia and Neisseria in the following specimens collected in Aptima transport media or PreservCyt Solution: endocervical and male urethral specimens, clinician collected vaginal swab specimens, PreservCyt Solution liquid Pap specimens, female and male urine specimens, clinician-collected throat and rectal samples. Performance with specimens other than those listed has not been evaluated and results must be interpreted with caution and correlated with clinical findings. Note: The performance of this assay has not been evaluated in persons less than 14 years of age[address]/NG Laboratory test result [facility] (Emeka Huffman EDUCATION AND DEVELOPMENT MANAGER) ID Date Data Source [id number] 04/10/2020 12:00:00 PM EDT [facility] (Emeka Huffman EDUCATION AND DEVELOPMENT MANAGER) Name Value Range Interpretation Code Description Data Zoraida rce(s) Supporting Document(s) TP Reflex HPV ASCUS Laboratory test result [facility] (Emeka Huffman EDUCATION AND DEVELOPMENT MANAGER) TP Reflex HPV ASCUS Laboratory test result [facility] (Emeka Huffman EDUCATION AND DEVELOPMENT MANAGER) SPECIMEN PART------ A. Cervical, Endocervical, ThinPrep Pap (Sales Order Administrator) CYTOLOGY HX-------- Date of Last Menstrual Period: 03/26/20 Other Information:Previous Pap: 10/13/19 HPV Positive Oral Contraceptives FINAL DIAGNOSIS---- INTERPRETATION: Negative for Intraepithelial Lesion or Malignancy. SPECIMEN ADEQUACY:Satisfactory for evaluation. Endocervical/transformation zone component present. ID Date Data Source [id number] 03/19/2020 01:29:32 PM EDT [facility] Name Value Range Interpretation Code Description Data Zoraida rce(s) Supporting Document(s) Progress Note [facility] [id number] [facility] [file] [id number] ID Date Data Source [id number] 03/06/2020 12:00:00 PM EDT [facility] ([facility] EDUCATION AND DEVELOPMENT MANAGER) Name Value Range Interpretation Code Description Data Zoraida rce(s) Supporting Document(s) CT/NG Laboratory test result [facility] ([facility] EDUCATION AND DEVELOPMENT MANAGER) CHLAMYDIA TRACHOMATIS: Negative NEISSERIA GONORRHOEAE: Negative Testing performed by the FDA-approved [employer] APTIMA COMBO 2 Assay. The APTIMA COMBO 2 Assay is designed to detect the presence of Chlamydia and Neisseria in the following specimens collected in Aptima transport media or PreservCyt Solution: endocervical and male urethral specimens, clinician collected vaginal swab specimens, PreservCyt Solution liquid Pap specimens, female and male urine specimens, clinician-collected throat and rectal samples. Performance with specimens other than those listed has not been evaluated and results must be interpreted with caution and correlated with clinical findings. Note: The performance of this assay has not been evaluated in persons less than 14 years [address] age[address]/NG Laboratory test result [facility] ([facility] EDUCATION AND DEVELOPMENT MANAGER) ID Date Data Source [id number] 10/13/2019 12:00:00 PM EST [facility] ([facility] EDUCATION AND DEVELOPMENT MANAGER) Name Value Range Interpretation Code Description Data Zoraida rce(s) Supporting Document(s) HPV Laboratory test result Abnormal (applies to non -numeric results) [facility] ([facility] EDUCATION AND DEVELOPMENT MANAGER) HR-HPV: Positive Test performed by the FDA-approved Target Datagic (Gen-Probe) APTIMA HPV test, which detects HPV genotypes: 16, 18, 31, 33, 35, 39, 45, 51, 52, 56, 58, 59, 66, and 68. TP Reflex HPV ASCUS Laboratory test result [facility] ([facility] EDUCATION AND DEVELOPMENT MANAGER) ID Date Data Source [id number] 10/13/2019 12:00:00 PM EST [facility] ([facility] EDUCATION AND DEVELOPMENT MANAGER) Name Value Range Interpretation Code Description Data Zoraida rce(s) Supporting Document(s) Cytology report of Cervical or vaginal smear or scrapi ng Cyto stain.thin prep Laboratory test result Abnormal (applies to non-numeric results) [facility] ([facility] [employer] EDUCATION AND DEVELOPMENT MANAGER) SPECIMEN PART------ A. Cervical, Endocervical, ThinPrep Pap (Sales Order Administrator) CYTOLOGY HX-------- Date of Last Menstrual Period: 09/01/19 Other Information:Previous Normal Pap: 05/23/19 Oral Contraceptives FINAL DIAGNOSIS---- GENERAL CATEGORY: Abnormal INTERPRETATION: Atypical Squamous Cells Of Undetermined Significance (ASC-US). SPECIMEN ADEQUACY:Satisfactory for evaluation. Endocervical/transformation zone component present. ID Date Data Source VITAMIN [id number] LEVEL 08/24/2019 12:00:00 AM EST eCW1 ([facility]) Name Value Range Interpretation Code Description Data Zoraida rce(s) Supporting Document(s) [id number] VITAMIN B12 LEVEL eCW1 ([facility]) ID Date Data Source TSH 08/24/2019 12:00:00 AM EST eCW1 ([facility]) Name Value Range Interpretation Code Description Data Zoraida rce(s) Supporting Document(s) 1.340 0.358-3.740 THYROID STIMULATING HORM ONE eCW1 ([facility]) ID Date Data Source RHEUMATOID FACTOR QUANT 08/24/2019 12:00:00 AM EST eCW1 ([facility]) Name Value Range Interpretation Code Description Data Zoraida rce(s) Supporting Document(s) 53.9 <15.0 RHEUMATOID FACTOR QUANT eCW1 ( [facility]) ID Date Data Source Comprehensive Metabolic Profile (CMP) 08/24/2019 12:00:00 AM EST eCW1 ([facility]) Name Value Range Interpretation Code Description Data Zoraida rce(s) Supporting Document(s) 9 7-18 BLOOD UREA NITROGEN eCW1 ([facility]) 75 70-100 GLUCOSE, FASTING eCW1 ([facility]) 0.73 0.55-1.30 CREATININE FOR GFR eCW1 ([facility]) 4.4 3.5-5.1 POTASSIUM SERUM eCW1 ([facility] hospital) 142 136-145 SODIUM LEVEL eCW1 ([facility]) > 60.0 >60 GLOMERULAR FILTRATION RATE eCW 1 ([facility]) 109 98-107 CHLORIDE LEVEL eCW1 ([facility]) 9.1 8.5-10.1 CALCIUM LEVEL eCW1 ([facility]) 27 21-32 CARBON DIOXIDE LEVEL eCW1 ([facility]) 11 7-37 AST/SGOT eCW1 ([facility]) 16 12-78 ALT/SGPT eCW1 ([facility]) 65 45-117 ALKALINE PHOSPHATASE eCW1 ([facility]) 3.8 3.2-5.2 ALBUMIN eCW1 ([facility]) 7.5 6.4-8.2 TOTAL PROTEIN eCW1 ([facility]) 0.4 0.2-1.0 BILIRUBIN,TOTAL eCW1 ([facility] hospital) 1.03 1.00-1.93 ALBUMIN/GLOBULIN RATIO eCW1 ([facility]) Procedure Social History Code Duration Value Status Description Data Source(s ) Smoking 10/01/2020 12:00:00 AM EST Unknown if ever smoked comp leted Unknown if ever smoked [facility] ([facility]) Smoking 09/07/2020 12:00:00 AM EST Never Smoker completed Never S moker eCW1 ([facility]) Smoking 09/07/2020 12:00:00 AM EST Never Smoker completed Never S moker eCW1 ([facility]) Smoking 09/05/2020 12:00:00 AM EST Never Smoker completed Never S moker eCW1 ([facility]) Smoking 09/05/2020 12:00:00 AM EST Unknown if ever smoked comp leted Unknown if ever smoked [facility] ([facility]) Smoking 08/27/2020 12:00:00 AM EST Never Smoker completed Never S claraker eCW1 ([facility]) Smoking 08/19/2020 12:00:00 AM EST Unknown if ever smoked comp leted Unknown if ever smoked [facility] ([facility]) Smoking 08/09/2020 12:00:00 AM EST Unknown if ever smoked comp leted Unknown if ever smoked [facility] ([facility]) Smoking 08/08/2020 12:00:00 AM EST Unknown if ever smoked comp leted Unknown if ever smoked [facility] ([facility]) Smoking 07/23/2020 12:00:00 AM EST Unknown if ever smoked comp leted Unknown if ever smoked [facility] ([facility]) Smoking 07/15/2020 12:00:00 AM EST Never Smoker completed Never Juan romeo eCW1 ([facility]) Smoking 06/25/2020 12:00:00 AM EST Non-smoker, Non-drink er, Non-drug User completed Non-smoker, Non-drinker, Non-drug User [facility] ([facility] EDUCATION AND DEVELOPMENT MANAGER) Smoking 06/25/2020 12:00:00 AM EST Unknown if ever smoked comp leted Unknown if ever smoked [facility] ([facility]) Smoking 06/03/2020 12:00:00 AM EDT Unknown if ever smoked comp leted Unknown if ever smoked [facility] ([facility]) Smoking 05/22/2020 12:00:00 AM EDT Unknown if ever smoked comp leted Unknown if ever smoked [facility] ([facility]) Smoking 05/17/2020 12:00:00 AM EDT Unknown if ever smoked comp leted Unknown if ever smoked [facility] ([facility]) Smoking 05/16/2020 12:00:00 AM EDT Unknown if ever smoked comp leted Unknown if ever smoked [facility] ([facility]) Smoking 05/02/2020 12:00:00 AM EDT Unknown if ever smoked comp leted Unknown if ever smoked [facility] ([facility]) Smoking 01/31/2020 12:00:00 AM EDT Unknown if ever smoked comp leted Unknown if ever smoked [facility] ([facility]) Smoking 01/03/2020 12:00:00 AM EDT Unknown if ever smoked comp leted Unknown if ever smoked [facility] ([facility]) Smoking 11/16/2019 12:00:00 AM EDT Unknown if ever smoked comp leted Unknown if ever smoked [facility] ([facility]) Smoking 11/10/2019 12:00:00 AM EDT Unknown if ever smoked comp leted Unknown if ever smoked [facility] ([facility]) Smoking 10/20/2019 12:00:00 AM EST Unknown if ever smoked comp leted Unknown if ever smoked [facility] ([facility]) Smoking 10/11/2019 12:00:00 AM EST Unknown if ever smoked comp leted Unknown if ever smoked [facility] ([facility]) Smoking 10/09/2019 12:00:00 AM EST Unknown if ever smoked comp leted Unknown if ever smoked [facility] ([facility]) Smoking 09/21/2019 12:00:00 AM EST Unknown if ever smoked comp leted Unknown if ever smoked [facility] ([facility]) Smoking 09/11/2019 12:00:00 AM EST Unknown if ever smoked comp leted Unknown if ever smoked [facility] ([facility]) Smoking 08/30/2019 12:00:00 AM EST Unknown if ever smoked comp leted Unknown if ever smoked [facility] ([facility]) Smoking 08/29/2019 12:00:00 AM EST Unknown if ever smoked comp leted Unknown if ever smoked [facility] ([facility]) Smoking 08/24/2019 12:00:00 AM EST Never Smoker completed Never S moker eCW1 ([facility]) Smoking 08/24/2019 12:00:00 AM EST Never Smoker completed Never S moker eCW1 ([facility]) Smoking 08/24/2019 12:00:00 AM EST Never Smoker completed Never S moker eCW1 ([facility]) Vital Signs ID Date Data Source UNK Name Value Range Interpretation Code Description Data Source(s) Diastolic blood pressure 90 mm[Hg] 90 mm[Hg] eCW1 ([facility]) Systolic blood pressure 136 mm[Hg] 136 mm[Hg] e CW1 ([facility]) Body temperature 98.2 [degF] 98.2 [degF] eCW1 ( [facility]) Respiratory rate 18 /min 18 /min eCW1 ([facility]) Heart rate 84 /min 84 /min eCW1 ([facility]) Body mass index (BMI) [Ratio] 25.98 kg/m2 25.98 kg/m2 W1 ([facility]) Body height 67.5 [in_i] 67.5 [in_i] W1 ([facility]) Body weight 168.4 [lb_av] 168.4 [lb_av] eCW1 ([facility]) Diastolic blood pressure 0 mm[Hg] Normal (applies to non-numeric results) 0 mm[Hg] [facility] ([facility]) Systolic blood pressure 0 mm[Hg] Normal (applies t o non-numeric results) 0 mm[Hg] [facility] ([facility]) Body mass index (BMI) [Ratio] 0.00 kg/m2 No rmal (applies to non-numeric results) 0.00 kg/m2 [facility] ([facility]) Body weight Measured 0.00 lbs Normal (applies to n on-numeric results) 0.00 lbs [facility] ([facility]) Body height 0.00 in Normal (applies to non-numeric resu lts) 0.00 in [facility] ([facility]) Diastolic blood pressure 68 mm[Hg] 68 mm[Hg] eCW1 ([facility]) Systolic blood pressure 110 mm[Hg] 110 mm[Hg] e CW1 ([facility]) Body temperature 97.8 [degF] 97.8 [degF] eCW1 ( [facility]) Respiratory rate 18 /min 18 /min eCW1 ([facility]) Heart rate 100 /min 100 /min eCW1 ([facility]) Body mass index (BMI) [Ratio] 26.38 kg/m2 26.38 kg/m2 W1 ([facility]) Body height 67.5 [in_i] 67.5 [in_i] eCW1 ([facility]) Body weight 171 [lb_av] 171 [lb_av] eCW1 ([facility]) Diastolic blood pressure 0 mm[Hg] Normal (applies to non-numeric results) 0 mm[Hg] [facility] ([facility]) Systolic blood pressure 0 mm[Hg] Normal (applies t o non-numeric results) 0 mm[Hg] [facility]) Body mass index (BMI) [Ratio] 0.00 kg/m2 No rmal (applies to non-numeric results) 0.00 kg/m2 [facility] ([facility]) Body weight Measured 0.00 lbs Normal (applies to n on-numeric results) 0.00 lbs [facility] ([facility]) Body height 0.00 in Normal (applies to non-numeric resu lts) 0.00 in [facility] ([facility]) Diastolic blood pressure 0 mm[Hg] Normal (applies to non-numeric results) 0 mm[Hg] [facility] ([facility]) Systolic blood pressure 0 mm[Hg] Normal (applies t o non-numeric results) 0 mm[Hg] [facility] ([facility]) Body mass index (BMI) [Ratio] 0.00 kg/m2 No rmal (applies to non-numeric results) 0.00 kg/m2 [facility] ([facility]) Body weight Measured 0.00 lbs Normal (applies to n on-numeric results) 0.00 lbs [facility] ([facility]) Body height 0.00 in Normal (applies to non-numeric resu lts) 0.00 in [facility] ([facility]) Diastolic blood pressure 0 mm[Hg] Normal (applies to non-numeric results) 0 mm[Hg] [facility] ([facility]) Systolic blood pressure 0 mm[Hg] Normal (applies t o non-numeric results) 0 mm[Hg] [facility] ([facility]) Body mass index (BMI) [Ratio] 0.00 kg/m2 No rmal (applies to non-numeric results) 0.00 kg/m2 [facility] ([facility]) Body weight Measured 0.00 lbs Normal (applies to n on-numeric results) 0.00 lbs [facility] ([facility]) Body height 0.00 in Normal (applies to non-numeric resu lts) 0.00 in [facility] ([facility]) Diastolic blood pressure 0 mm[Hg] Normal (applies to non-numeric results) 0 mm[Hg] [facility] ([facility]) Systolic blood pressure 0 mm[Hg] Normal (applies t o non-numeric results) 0 mm[Hg] [facility] ([facility]) Body mass index (BMI) [Ratio] 0.00 kg/m2 No rmal (applies to non-numeric results) 0.00 kg/m2 [facility] ([facility]) Body weight Measured 0.00 lbs Normal (applies to n on-numeric results) 0.00 lbs [facility] ([facility]) Body height 0.00 in Normal (applies to non-numeric resu lts) 0.00 in [facility] ([facility]) Body surface area Derived from formula 1.89 m2 1.89 m2 [facility] ([employer] EDUCATION AND DEVELOPMENT MANAGER) Body mass index (BMI) [Ratio] 26.1 kg/m2 26.1 k g/m2 [facility] ([employer] EDUCATION AND DEVELOPMENT MANAGER) Body weight 169.00 [lb_av] 169.00 [lb_av] MEDEN T ([facility] EDUCATION AND DEVELOPMENT MANAGER) Body height 67.5 [in_i] 67.5 [in_i] [facility] ([facility] EDUCATION AND DEVELOPMENT MANAGER) 5'7.50" Diastolic blood pressure 64 mm[Hg] 64 mm[Hg] [facility] ([facility] [facility] EDUCATION AND DEVELOPMENT MANAGER) Systolic blood pressure 100 mm[Hg] 100 mm[Hg] M [facility]ENT ([employer] EDUCATION AND DEVELOPMENT MANAGER) Body surface area 1.89 m2 1.89 m2 [facility] ([employer] EDUCATION AND DEVELOPMENT MANAGER) Diastolic blood pressure 0 mm[Hg] Normal (applies to non-numeric results) 0 mm[Hg] [facility] ([facility]) Systolic blood pressure 0 mm[Hg] Normal (applies t o non-numeric results) 0 mm[Hg] [facility] ([facility]) Body mass index (BMI) [Ratio] 0.00 kg/m2 No rmal (applies to non-numeric results) 0.00 kg/m2 [facility] ([facility]) Body weight Measured 171.00 lbs Normal (applies to n on-numeric results) 171.00 lbs [facility] ([facility]) Body height 0.00 in Normal (applies to non-numeric resu lts) 0.00 in [facility] ([facility]) Systolic blood pressure 0 mm[Hg] Normal (applies t o non-numeric results) 0 mm[Hg] [facility] ([facility]) Body mass index (BMI) [Ratio] 0.00 kg/m2 No rmal (applies to non-numeric results) 0.00 kg/m2 [facility] ([facility]) Body weight Measured 0.00 lbs Normal (applies to n on-numeric results) 0.00 lbs [facility] ([facility]) Body height 0.00 in Normal (applies to non-numeric resu lts) 0.00 in [facility] ([facility]) Diastolic blood pressure 0 mm[Hg] Normal (applies to non-numeric results) 0 mm[Hg] [facility] ([facility]) Diastolic blood pressure 0 mm[Hg] Normal (applies to non-numeric results) 0 mm[Hg] [facility] ([facility]) Systolic blood pressure 0 mm[Hg] Normal (applies t o non-numeric results) 0 mm[Hg] [facility] ([facility]) Body mass index (BMI) [Ratio] 0.00 kg/m2 No rmal (applies to non-numeric results) 0.00 kg/m2 [facility] ([facility]) Body weight Measured 0.00 lbs Normal (applies to n on-numeric results) 0.00 lbs [facility] ([facility]) Body height 0.00 in Normal (applies to non-numeric resu lts) 0.00 in [facility] ([facility]) Diastolic blood pressure 78 mm[Hg] 78 mm[Hg] eCW1 ([facility]) Systolic blood pressure 122 mm[Hg] 122 mm[Hg] e CW1 ([facility]) Body temperature 98.9 [degF] 98.9 [degF] eCW1 ( [facility]) Respiratory rate 18 /min 18 /min eCW1 ([facility] to [facility]) Heart rate 114 /min 114 /min eCW1 ([facility]) Body mass index (BMI) [Ratio] 25.92 kg/m2 25.92 kg/m2 eCW1 ([facility]) Body height 67.5 [in_us] 67.5 [in_us] eCW1 ([facility]) Body weight Measured 168 [lb_av] 168 [lb_av] eC W1 ([facility]) Patient Treatment Plan of Care Planned Activity Planned Date Details Description Data Source (s) Amoxicillin 250 MG Oral Capsule 09/05/2020 12:00:00 AM EST eCW1 ([facility]) Fluconazole 150 MG Oral Tablet [Diflucan] 09/05/2020 12:00:00 AM ES T eCW1 ([facility]) Amoxicillin 250 MG Oral Capsule 09/05/2020 12:00:00 AM EST eCW1 ([facility]) Fluconazole 150 MG Oral Tablet [Diflucan] 09/05/2020 12:00:00 AM ES T eCW1 ([facility]) Amoxicillin 250 MG Oral Capsule 09/05/2020 12:00:00 AM EST eCW1 ([facility]) Fluconazole 150 MG Oral Tablet [Diflucan] 09/05/2020 12:00:00 AM ES T eCW1 ([facility]) adapalene 0.001 MG/MG Topical Gel [Differin] 08/27/2020 12:00:00 AM EST eCW1 ([facility]) Tretinoin 1 MG/ML Topical Cream 11/28/2018 12:00:00 AM [facility]
--- OUTSIDE RECORDS SUMMARY | 2020-10-09 16:39 | CCD ---
Author Author Brenda Calvo Organization Unknown Address [address] [address] Phone Care Team Providers Care Director Of Financial Aid Name Role Phone Bernice Calvo PCP Allergies, Adverse Reactions, Alerts Concept Allergy Name Reaction Severity Onset Date Status Documentation Date Phone Number Npid Taxonomy Code Taxonomy Desc Author Last Name Author Fi rst Name Concept Type 005555 Zyprexa (olanzapine) weight gain, weight gain 06/24 Active 06/18/2016 [id number] Registered Nurse Perry Butt RXNORM Problem List Concept Problem Description Status Start Date Created Date Resolv ed Date Snomed Code F31.9 Unspecified Bipolar and Related Disorder Active 08/09/2020 F42.2 Obsessive-Compulsive Disorder Active 02/26/2016 6 F45.22 [...] Name Taxonomy Code Taxonomy Desc Phone Number [id number] sertraline by mouth [id number] 10/27/2018 once a day 100 mg ta blet 31803 [phone] Viv Gillespie [id number] Psychiatric/Mental Health [phone] 353344 lithium carbonate 09/21/2019 once a day 300 mg c apsule 26949 [id number] [phone] Siobhan Emmanuel [id number] Psychiatric/Mental Health [id number] Social History Social History Element Description Concept Effective Date Smoking Status Unknown if ever smoked [id number] Immunizations No Data in Section Vital Signs No Data in Section Procedures Date Concept Id Description Targeted Site Concept Targeted Site Concept Type 08/09/2020 98799 Extended Individual Psychotherapy - 45 min CPT Patient has no history of implantable de vices Encounters Encounter Start Date End Date Encounter Type Description Diagnosis Di agnosis Desc Location Author First Name Author Last Name Npid Taxonomy Cod e Taxonomy Desc Phone Number Location Addr1 Location Addr2 Location [facility] Location [facility] te Location [facility] [id number] 08/09/2020 08/09/2020 85035 Extended Individual Psych otherapy - 45 min F31.[address], [address] [facility] Bernice [id number] Mental Health [id number] [address] [address] Plan of Treatment No Data in Section Lab Results No Data in Section Instructions No Data in Section Insurance Providers Insurance Id Policy Effective Date Policy Thru Date Company [employer] [id number] 2018 [employer]
--- OUTSIDE RECORDS SUMMARY | 2020-10-09 16:39 | CCD ---
Author Author Brenda Calvo Organization Unknown Address [address] [address] Phone Care Team Providers Care Semiconductor Lab Technician Name Role Phone Bernice Calvo PCP Allergies, Adverse Reactions, Alerts Concept Allergy Name Reaction Severity Onset Date Status Documentation Date Phone Number Npid Taxonomy Code Taxonomy Desc Author Last Name Author Fi rst Name Concept Type 239570 Zyprexa (olanzapine) weight gain, weight gain 06/24 Active 06/18/2016 [id number] Registered Nurse Perry Butt RXNORM Problem List Concept Problem Description Status Start Date Created Date Resolv ed Date Snomed Code F31.9 Unspecified Bipolar and Related Disorder Active 08/19/2020 F42.2 Obsessive-Compulsive Disorder Active 02/26/2016 6 F45.22 [...] Name Taxonomy Code Taxonomy Desc Phone Number [phone] sertraline by mouth [id number] 10/27/2018 once a day 100 mg ta blet [phone] [phone] Viv Gillespie [id number] Psychiatric/Mental Health [phone] 886063 lithium carbonate 09/21/2019 once a day 300 mg c apsule 53296 [id number] Siobhan Emmanuel [id number] Psychiatric/Mental Health [phone] Social History Social History Element Description Concept Effective Date Smoking Status Unknown if ever smoked [id number] Immunizations No Data in Section Vital Signs No Data in Section Procedures Date Concept Id Description Targeted Site Concept Targeted Site Concept Type 08/19/2020 30421 Extended Individual Psychotherapy - 45 min CPT Patient has no history of implantable de vices Encounters Encounter Start Date End Date Encounter Type Description Diagnosis Di agnosis Desc Location Author First Name Author Last Name Npid Taxonomy Cod e Taxonomy Desc Phone Number Location Addr1 Location Addr2 Location [facility] Location Sta te Location [facility] 685918 08/19/2020 08/19/2020 34012 Extended Individual Psych otherapy - 45 min F31.[address], [address] [facility] Bernice [phone] [id number] Mental Health [phone] [address] [address] Plan of Treatment No Data in Section Lab Results No Data in Section Instructions No Data in Section Insurance Providers Insurance Id Policy Effective Date Policy Thru Date Company [employer] [id number] 2018 [employer]
--- OUTSIDE RECORDS SUMMARY | 2020-10-09 16:39 | CCD ---
Author Author Brenda Gillespie Organization Unknown Address [address] [place] [place] [address] Phone Care Team Providers Care Regional Vice President Life Sales Name Role Phone Viv Gillespie PCP Allergies, Adverse Reactions, Alerts Concept Allergy Name Reaction Severity Onset Date Status Documentation Date Phone Number Npid Taxonomy Code Taxonomy Desc Author Last Name Author Fi rst Name Concept Type 090396 Zyprexa (olanzapine) weight gain, weight gain 06/24 Active 06/18/2016 [id number] Registered Nurse Perry Butt RXNORM Problem List Concept Problem Description Status Start Date Created Date Resolv ed Date Snomed Code F31.9 Unspecified Bipolar and Related Disorder Active 08/08/2020 F42.2 Obsessive-Compulsive Disorder Active 02/26/2016 6 F45.22 [...] Name Taxonomy Code Taxonomy Desc Phone Number [phone] sertraline by mouth E41330 10/27/2018 once a day 100 mg ta blet 22559 [phone] Viv Gillespie [id number] Psychiatric/Mental Health [phone] 588216 lithium carbonate 09/21/2019 once a day 300 mg c apsule 52236 334739 [id number] Siobhan Emmanuel [id number] Psychiatric/Mental Health [phone] Social History Social History Element Description Concept Effective Date Smoking Status Unknown if ever smoked [id number] Immunizations No Data in Section Vital Signs Encounter Date Height Ins Weight Lbs Bmi Bp Systolic Bp Diastoli c Oxygen Saturation Respiration Rate Pulse Rate Body Temp Head Circumference Heigh t Lying 08/08/2020 0.00 0.00 0.00 0 0 0.00 0 0 0.00 0.0 0.0 0 Procedures Date Concept Id Description Targeted Site Concept Targeted Site Concept Type 08/08/2020 17493 E/M Level 3 - Established Patient CPT 08/08/2020 48268 Psychotherapy ADD ON - 30 Minutes CPT Patient has no history of implantable de vices Encounters Encounter Start Date End Date Encounter Type Description Diagnosis Di agnosis Desc Location Author First Name Author Last Name Npid Taxonomy Cod e Taxonomy Desc Phone Number Location Addr1 Location Addr2 Location [facility] Location [facility] Location Zip [id number] 08/08/2020 08/08/2020 91753 E/M Level 3 - Established [place] F31.9 Bipolar disorder, unspecified [facility] [phone] [id number] Psychiatric/Mental Health [phone] [address] [facility] [address] Plan of Treatment No Data in Section Lab Results No Data in Section Instructions No Data in Section Functional Cognitive Status No Data in Section Insurance Providers Insurance Id Policy Effective Date Policy Thru Date Company [employer] [id number] 2018 [place]
--- OUTSIDE RECORDS SUMMARY | 2020-10-09 16:39 | CCD ---
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 692649877 Problem Hypothyroidism, unspecified E03.9 Active 4093 0008 Problem Allergic rhinitis 477.9 Active 95841369 Problem Rheumatoid arthritis 714.0 Active 24704296 Problem Constipation, unspecified constipation type K59.00 Active 13738926 Problem Anxiety F41.9 Active 64211412 ALLERGIES Allergen (clinical drug ingredient) Drug/Non Drug Allergy do cumented on EMR Reaction Allergy Type Onset Date Status Sulfa (for allergy use only) seizures Drug Allergy Active ENCOUNTERS from 1987 to 2020-07-15 Encounter Location Date Provider Diagnosis [address] [address] Jun, Jada Vigil IMMUNIZATIONS Vaccine Route Administration Date [...] Notes Start Da te End Date Status MiraLax - 1 capfull mixed with 8 ounce s of fluid Orally Once a day for 30 day(s) Active Lo/Ovral (28) 0.3-30 MG-MCG 1 tablet Orally Daily for Three Weeks, 1 Week off for 30 day(s) Active Levoxyl 50 mcg 1 tablet on an empty stomach in the morning Orally Once a day for 30 days Active [place]ier Carbonate 300 MG 3 capsule Orally before bedtime Active Colace 100 MG 3 capsule as needed Orally a few times a week Active Zoloft 50 MG 1 tablet Orally Once a day Active PROCEDURES No Information RESULTS No Results REASON FOR VISIT no show MEDICAL (GENERAL) HISTORY Type Description Date Medical History RA- Dr Christen Capone (dx 07/04) Medical History polyarthritis Medical History hypothyroidism since 14 yo (TPO Ab neg) 11/03 TSH 0.738 Medical History Depression/anxiety/mood diso rder-[facility] Medical History H/O mild asthma when younger Medical History allergic rhinitis Medical History Tdap 09/04 per prev recs Surgical History tonsilectomy 2009 Surgical History wisdom tooth extraction 2009 Goals Section No Information Health Concerns No Information MEDICAL EQUIPMENT No Information MENTAL STATUS No Information FUNCTIONAL STATUS No Information ASSESSMENTS No Information PLAN OF TREATMENT Next Appt Details Provider Name:Jada Vigil, 08:00:00 AM, [address] [place], [address], Insurance Providers Payer Name Payer Address Payer Phone Insured Name Patient Relati onship to Insured Coverage Start Date Coverage End Date BCBS UTILELE GARCIA PPO [phone] [facility] [id number] CAYLA BROWN MAY self
--- OUTSIDE RECORDS SUMMARY | 2020-10-09 16:39 | CCD ---
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 Role Phone Viv Gillespie PCP Allergies, Adverse Reactions, Alerts Concept Allergy Name Reaction Severity Onset Date Status Documentation Date Phone Number Npid Taxonomy Code Taxonomy Desc Author Last Name Author Fi rst Name Concept Type 067808 Zyprexa (olanzapine) weight gain, weight gain 06/24 Active 06/18/2016 [id number] Registered Nurse Perry Butt RXNORM Problem List Concept Problem Description Status Start Date Created Date Resolv ed Date Snomed Code F42.2 Obsessive-Compulsive Disorder Active 02/26/2016 6 F45.22 Body Dysmorphic Disorder Active 02/26/2016 02/26/2016 F41.1 Generalized Anxiety Disorder Active 02/26/2016 02/26/2016 F39. Unspecified mood [affective] disorder Active 02/26/2016 0 02/26/2016 F50.8 Binge-Eating Disorder Active 02/26/2016 02/26/2016 Medications Rx Norm Medication Route Route Concept Start Date Stop Date Dosage Arley quency Duration Formula Strength Dosage Form Dosage Form Code Dosage Description Medication Id Account Npid Author First Name Author Last Name Taxonomy Code Taxonomy Desc Phone Number [phone] sertraline by mouth E62429 10/27/2018 once a day 100 mg ta blet 06386 [phone] Siobhan Emmanuel [id number] Psychiatric/Mental Health [phone] [id number] lithium carbonate 09/21/2019 once a day 300 mg c apsule 38058 [id number] [id number] Siobahn Emmanuel [id number] Psychiatric/Mental Health [phone] Social History Social History Element Description Concept Effective Date Smoking Status Unknown if ever smoked [id number] 91695312 Immunizations No Data in Section Vital Signs Encounter Date Height Ins Weight Lbs Bmi Bp Systolic Bp Diastoli c Oxygen Saturation Respiration Rate Pulse Rate Body Temp Head Circumference Heigh t Lying 07/23/2020 0.00 0.00 0.00 0 0 0.00 0 0 0.00 0.0 0.0 0 Procedures Date Concept Id Description Targeted Site Concept Targeted Site Concept Type 07/23/2020 16996-93 [facility] Telemed E/M Lvl 3--Est pt CPT 07/23/2020 86886-21 Telemed A/O 45" CPT Patient has no history of implantable de vices Encounters Encounter Start Date End Date Encounter Type Description Diagnosis Di agnosis Desc Location Author First Name Author Last Name Npid Taxonomy Cod e Taxonomy Desc Phone Number Location Addr1 Location Addr2 Location [facility] Location Sta te Location [facility] [id number] 07/23/2020 07/23/2020 43563-96 [facility] Telemed E/M Lvl 3--Est p t F42.2 Obsessive-compulsive disorder [facility] [phone] [id number] Psychiatric/Mental Health [phone] [address] [place] [address] Plan of Treatment No Data in Section Lab Results No Data in Section Instructions No Data in Section Functional Cognitive Status No Data in Section Insurance Providers Insurance Id Policy Effective Date Policy Thru Date [employer] [id number] 2018 [place]
[2020-10-09] MEDS ORDERED: LITH300C PO (17:00)
[2020-10-09] MEDS ORDERED: LEVO50TA5 PO (17:00)
[2020-10-09] MEDS ORDERED: VRAY3CAP PO (17:00)
[2020-10-09] MEDS ORDERED: LOW-1TAB2 (17:00)
[2020-10-09] MEDS ORDERED: ZOLO100T PO (17:00)
--- OUTSIDE RECORDS SUMMARY | 2020-10-09 17:40 | CCD ---
Author Author [facility] Organization [facility] Address Unknown Phone Unavailable Care Team Providers Care Premix Operator Concentrate Name Role Phone Anat BLAIR MD Unavailable Unavailable Anat LBAIR MD Unavailable Unavailable Anat BLAIR MD Unavailable Unavailable Anat BLAIR MD Unavailable Unavailable Anat BLAIR MD Unavailable Unavailable Anat BLAIR MD Unavailable Unavailable Anat BLAIR MD Unavailable Unavailable Anat BLAIR MD Unavailable Unavailable Anat BLAIR MD Unavailable Unavailable Anat BLAIR MD Unavailable Unavailable Anat BLAIR MD Unavailable Unavailable Anat BLAIR MD Unavailable Unavailable JOHNNIE L VIGNESH PARIHK Unavailable Unavailable Anat BLAIR MD Unavailable Unavailable Anat LBAIR MD Unavailable Unavailable Anat BLAIR MD Unavailable Unavailable BLAIR, L VIGNESH PARIKH [...] L VIGNESH PARIKH Unavailable Unavailable BLAIR, L VIGNSEH PARIKH Unavailable Unavailable BLAIR, L VIGNESH PARIKH [...] Unavailable BLAIR, L VIGNESH PARIKH Unavailable Unavailable Verna, Raul BennettViv PMH-DIRECTOR OF CULTURE Unavailable Unavailable Verna, K Viv PMH-DIRECTOR OF CULTURE Unavailable Unavailable Carson, K Viv PMH-DIRECTOR OF CULTURE Unavailable Unavailable Carson, K Viv PMH-DIRECTOR OF CULTURE Unavailable Unavailable Carson, K Viv PMH-DIRECTOR OF CULTURE Unavailable Unavailable Carson, K Viv PMH-DIRECTOR OF CULTURE Unavailable Unavailable AGATA SALGADO MD Unavailable Unavailable [...] GATES, E GAYLE Unavailable Unavailable GATES, E GALYE Unavailable Unavailable MACQUEEN, SIOBHAN DIRECTOR OF CULTURE Unavailable Unavailable MACQUEEN, SIOBHAN DIRECTOR OF CULTURE Unavailable Unavailable MACQUEEN, SIOBHAN DIRECTOR OF CULTURE Unavailable Unavailable MACQUEEN, SIOBHAN DIRECTOR OF CULTURE Unavailable Unavailable MACQUEEN, SIOBHAN DIRECTOR OF CULTURE Unavailable Unavailable MACQUEEN, SIOBHAN DIRECTOR OF CULTURE Unavailable Unavailable MACQUEEN, SIOBHAN DIRECTOR OF CULTURE Unavailable Unavailable MACQUEEN, SIOBHAN DIRECTOR OF CULTURE Unavailable Unavailable MACQUEEN, SIOBHAN DIRECTOR OF CULTURE Unavailable Unavailable MACQUEEN, SIOBHAN DIRECTOR OF CULTURE Unavailable Unavailable MACQUEEN, SIOBHAN DIRECTOR OF CULTURE Unavailable Unavailable Bernice Calvo Unavailable Re-disclosure Warning [...] is protected by Article 27-F of the [facility] Public Health law. If you continue you may have access to information: Regarding HIV / AIDS; Provided by facilities licensed or operated by the [facility] Office of Mental Health; or Provided by the [facility] Office for People With Developmental Disabilities. 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 Extended Individual Psychotherapy - 45 min Attender: Bernice Calvo [facility] 10/01/2020 12:00:00 PM EST - 10/01/2020 12:00:00 PM EST [facility] ([facility]) Attender: Bernice Calvo 10/01/2020 12:00:00 AM EST [facility] ([facility]) Unknown [address] [facility] [place] [address] 09/10/2020 12:00:00 AM EST eCW1 (Critical access hospital) Outpatient Attender: Viv Gillespie [facility]-DIRECTOR OF CULTURE [facility] 09/05/2020 08:30:00 AM EST - 09/05/2020 08:30:00 AM EST [facility] ([facility]) Outpatient [address] [facility] [address] 09/05/2020 12:00:00 AM EST eCW1 (Critical access hospital) Unknown [address] [facility] [address] 09/05/2020 12:00:00 AM EST eCW1 (Critical access hospital) Attender: Viv POWELLDAVID 09/05/2020 12: 00:00 AM EST [facility] ([facility]) Outpatient [address] [facility] [address] 08/27/2020 12:00:00 AM EST eCW1 (Critical access hospital) Extended Individual Psychotherapy - 45 min Attender: Bernice Umesh [facility] 08/19/2020 08:00:00 AM EST - 08/19/2020 08:00:00 AM EST [facility] ([facility]) Attender: Bernice Umesh 08/19/2020 12:00:00 AM EST [facility] ([facility]) Extended Individual Psychotherapy - 45 min Attender: Bernice Umesh [facility] 08/09/2020 08:00:00 AM EST - 08/09/2020 08:00:00 AM EST [facility] ([facility]) Attender: Bernice Calvo 08/09/2020 12:00:00 AM EST [facility] ([facility]) Outpatient Attender: Viv POWELLDAVID [facility] 08/08/2020 08:00:00 AM EST - 08/08/2020 08:00:00 AM EST [facility] ([facility]) Attender: Viv ORANTES 08/08/2020 12: 00:00 AM EST [facility] ([facility]) Outpatient Att[facility] 07/23/2020 07:30:00 AM EST - 07/23/2020 07:30:00 AM EST [facility] ([facility]) Attender: Viv Gillespie PM-DIRECTOR OF CULTURE 07/23/2020 12: 00:00 AM EST [facility] ([facility]) Unknown [address] [facility] [address] 07/15/2020 12:00:00 AM EST eCW1 (Critical access hospital) Unknown [address] [facility] [address] 06/27/2020 12:00:00 AM EST eCW1 (Critical access hospital) Extended Individual Psychotherapy - 45 min Attender: Bernice Calvo [facility] 06/25/2020 09:00:00 AM EST - 06/25/2020 09:00:00 AM EST [facility] ([facility]) Outpatient Attender: VIGNESH BLAIR MD [facility] 10/2019 08:00:00 AM EST MEDENT ([facility] TANDEM MILL OPERATOR) Attender: Bernice Calvo 06/25/2020 12:00:00 AM EST [facility] ([facility]) [place] [address] [facility] [address] 06/21/2020 12:00:00 AM EDT eCW1 (Critical access hospital) Unknown [address] [facility] [place] [address] 06/21/2020 12:00:00 AM EDT eCW1 (Critical access hospital) Extended Individual Psychotherapy - 45 min Attender: Bernice Calvo [facility] 06/03/2020 02:00:00 AM EDT - 06/03/2020 02:00:00 AM EDT [facility] ([facility]) Attender: Bernice Calvo 06/03/2020 12:00:00 AM EDT [facility] ([facility]) Extended Individual Psychotherapy - 45 min Attender: Bernice Calvo [facility] 05/22/2020 09:00:00 AM EDT - 05/22/2020 09:00:00 AM EDT [facility] ([facility]) Attender: Bernice Calvo 05/22/2020 12:00:00 AM EDT [facility] ([facility]) Outpatient Attender: GAYLE GATES 05/21/2020 12:00:00 AM [facility] Extended Individual Psychotherapy - 45 min Attender: Bernice Umesh [facility] Twila 05/17/2020 09:00:00 AM EDT - 05/17/2020 09:00:00 AM EDT [facility] ([facility]) Attender: Bernice Calvo 05/17/2020 12:00:00 AM EDT [facility] ([facility]) Outpatient Attender: SIOBHAN GONZALES NP [facility] Yoandy coppola 05/16/2020 10:30:00 AM EDT - 05/16/2020 10:30:00 AM EDT [facility] ([facility]) Attender: SIOBHAN GONZALES NP 05/16/2020 12:00:00 AM EDT [facility] ([facility]) Outpatient Attender: SIOBHAN GONZALES NP [facility] Yoandy coppola 05/02/2020 12:30:00 PM EDT - 05/02/2020 12:30:00 PM EDT [facility] ([facility]) Attender: SIOBHAN GONZALES NP 05/02/2020 12:00:00 AM EDT [facility] ([facility]) Outpatient Attender: VIGNESH [facility] 09:15:00 AM EDT MEDENT ([facility] TANDEM MILL OPERATOR) Outpatient Attender: JUN SALGADO MD [id number] 03/19/2020 12:0 0:00 AM EDT Rheumatoid arthritis with rheumatoid factor of multiple sites without organ or systems involvement [facility] Rheumatoid arthritis with rheumatoid fac tor of multiple sites without organ or systems involvement Outpatient Attender: JUN SALGADO MD 03/19/2020 12:00:[address] [facility] Outpatient Attender: VIGNESH [facility] [facility] 09:15:00 AM EDT MEDENT ([facility] TANDEM MILL OPERATOR) Outpatient Attender: SIOBHAN GONZALES NP [facility] Yoandy coppola 01/31/2020 04:30:00 AM EDT - 01/31/2020 04:30:00 AM EDT [facility] ([facility]) Attender: SIOBHAN GONZALES NP 01/31/2020 12:00:00 AM EDT [facility] ([facility]) Outpatient Attender: SIOBHAN GONZALES NP [facility] Yoandy anat 01/03/2020 04:30:00 AM EDT - 01/03/2020 04:30:00 AM EDT [facility] ([facility]) Attender: SIOBHAN GONZALES NP 01/03/2020 12:00:00 AM EDT [facility] ([facility]) Outpatient Attender: SIOBHAN GONZALES NP [facility] anat 11/16/2019 04:30:00 AM EDT - 11/16/2019 04:30:00 AM EDT [facility] ([facility]) Attender: SIOBHAN GONZALES NP 11/16/2019 12:00:00 AM EDT [facility] ([facility]) Attender: Bernice Calvo 11/10/2019 12:00:00 AM EDT [facility] ([facility]) Extended Individual Psychotherapy - 45 min Attender: Bernice Umesh [facility] 11/09/2019 05:45:00 AM EDT - 11/09/2019 05:45:00 AM EDT [facility] ([facility]) Extended Individual Psychotherapy - 45 min Attender: Bernice Umesh [facility] 10/20/2019 02:00:00 AM EST - 10/20/2019 02:00:00 AM EST [facility] ([facility]) Attender: Bernice Calvo 10/20/2019 12:00:00 AM EST [facility] ([facility]) Outpatient Attender: VIGNESH BLAIR MD [facility] 08:00:00 AM EST MEDENT ([facility] TANDEM MILL OPERATOR) Outpatient Attender: SIOBHAN GONZALES NP [facility] anat 10/11/2019 04:30:00 AM EST - 10/11/2019 04:30:00 AM EST [facility] ([facility]) Attender: SIOBHAN GONZALES NP 10/11/2019 12:00:00 AM EST [facility] ([facility]) Brief Individual Psychotherapy - 30 min Attender: Bernice regalado [facility] 10/09/2019 04:45:00 AM EST - 10/09/2019 04:45:00 AM EST [facility] ([facility]) Attender: Bernice Calvo 10/09/2019 12:00:00 AM EST [facility] ([facility]) Attender: Bernice Calvo 10/09/2019 12:00:00 AM EST [facility] ([facility]) Extended Individual Psychotherapy - 45 min Attender: Bernice Calvo [facility] 09/26/2019 04:45:00 AM EST - 09/26/2019 04:45:00 AM EST [facility] ([facility]) Outpatient Attender: SIOBHAN GONZALES NP [facility] Yoandy coppola 09/21/2019 04:30:00 AM EST - 09/21/2019 04:30:00 AM EST [facility] ([facility]) Attender: SIOBHAN GONZALES NP 09/21/2019 12:00:00 AM EST [facility] ([facility]) Extended Individual Psychotherapy - 45 min [facility] 05:00:00 AM EST - 09/11/2019 05:00:00 AM EST [facility] ([facility]) Attender: Bernice Calvo 09/11/2019 12:00:00 AM EST [facility] ([facility]) Outpatient Attender: SIOBHAN GONZALES NP [facility] Yoandy coppola 08/30/2019 04:00:00 AM EST - 08/30/2019 04:00:00 AM EST [facility] ([facility]) Attender: SIOBHAN GONZALES NP 08/30/2019 12:00:00 AM EST [facility] ([facility]) Attender: Bernice Calvo 08/29/2019 12:00:00 AM EST [facility] ([facility]) Extended Individual Psychotherapy - 45 min Attender: Bernice Calvo [facility] 08/28/2019 05:00:00 AM EST - 08/28/2019 05:00:00 AM EST [facility] ([facility]) [facility] [address] [facility] [address] 08/24/2019 12:00:00 AM EST eCW1 (Critical access hospital) Functional Status Medications Medication Brand Name Start [...] AM EST 50 mg by mouth completed [id number] trazodone by mouth [id number] 09/16/2020 12/15/2020 every evening 30 50 mg tablet 03869 [id number] Viv Gillespie [id number] Psychiatric/Mental Health [facility] ([facility]) 3 mg 09/15/2020 12:00:00 AM EST capsule [...] TABLET DAILY FOR 6 DAYS SOLD: 09/05/2020 [facility] Vraylar Vraylar 09/05/2020 12:00:00 AM EST 3 mg by mouth completed [id number] Vraylar by mouth [id number] 09/05/2020 once a day 3 mg capsule 15319 [id number] Viv Gillespie [id number] Psychiatric/M[facility] Health [facility] ([facility]) Fluconazole 150 MG Oral Tablet [Diflucan] Diflucan 150 MG Di flucan 150 MG 09/05/2020 12:00:00 AM EST active Diflucan 150 MG eCW1 ([facility]) Amoxicillin 250 MG Oral Capsule Amoxicillin 250 MG 09/05/2020 12:00 :00 AM EST 1.0 {capsule} active Amoxicillin 250 MG eCW1 ([facility]) Amoxicillin 250 MG Oral Capsule Amoxicillin 250 MG 09/05/2020 12:00 :00 AM EST 1.0 {capsule} active Amoxicillin 250 MG eCW1 ([facility]) Fluconazole 150 MG Oral Tablet [Diflucan] Diflucan 150 MG Di flucan 150 MG 09/05/2020 12:00:00 AM EST active Diflucan 150 MG eCW1 ([facility]) Fluconazole 150 MG Oral Tablet [Diflucan] Diflucan 150 MG Di flucan 150 MG 09/05/2020 12:00:00 AM EST active Diflucan 150 MG eCW1 ([facility]) 250 mg 09/05/2020 12:00:00 AM EST capsule 40 TAKE ONE CAPSULE BY MOUTH FOUR TIMES A DAY TAKE ONE CAPSULE BY MOUTH FOUR TIMES A DAY SOLD: 09/05/2020 [facility] Amoxicillin 250 MG Oral Capsule Amoxicillin 250 MG 09/05/2020 12:00 :00 AM EST 1.0 {capsule} active Amoxicillin 250 MG eCW1 ([facility]) 300 mg 09/05/2020 12:00:00 AM EST capsule 90 TAKE THREE CAPSULES BY MOUTH ONCE A DAY TAKE THREE CAPSULES BY MOUTH ONCE A DAY SOLD: 09/05/2020 [facility] 150 mg 09/05/2020 12:00:00 AM EST tablet 2 TAKE 1 TAKE TABLET BY MOUTH TODAY REPEAT FOR 1 DOSE IN 10 DAYS TAKE 1 TAKE TABLET BY MOUTH TODAY REPEAT FOR 1 DOSE IN 10 DAYS SOLD: 09/05/2020 [facility] adapalene 0.001 MG/MG Topical Gel [Differin] Differin 0.1 % Differin 0.1 % 08/27/2020 12:00:00 AM EST active Differin 0.1 % eCW1 ([facility]) adapalene 0.001 MG/MG Topical Gel [Differin] Differin 0.1 % Differin 0.1 % 08/27/2020 12:00:00 AM EST active Differin 0.1 % eCW1 ([facility]) adapalene 0.001 MG/MG Topical Gel [Differin] Differin 0.1 % Differin 0.1 % 08/27/2020 12:00:00 AM EST active Differin 0.1 % eCW1 ([facility]) adapalene 0.001 MG/MG Topical Gel [Differin] Differin 0.1 % Differin 0.1 % 08/27/2020 12:00:00 AM EST active Differin 0.1 % eCW1 ([facility]) [facility] 91 Day Pack 0.15 mg-30 mcg (91) LEVONORGESTREL/ETHI NYL ESTRADIOL 08/19/2020 12:00:00 AM EST tablets,dose pack,3 month 91 TAKE ONE TABLET BY MOUTH EVERY DAY TAKE ONE TABLET BY MOUTH EVERY DAY SOLD: 08/21/2020 [facility] 150 mg 07/31/2020 12:00:00 AM EST tablet 2 TAKE 1 TABLET BY MOUTH NOW AND 1 TABLET TOMORROW TAKE 1 TABLET BY MOUTH NOW AND 1 TABLET TOMORROW SOLD: 08/10/2020 [facility] 100 mg 07/30/2020 12:00:00 AM EST tablet 60 TAKE TWO TABLETS BY MOUTH EVERY DAY TAKE TWO TABLETS BY MOUTH EVERY DAY SOLD: 08/10/2020 [facility] 100 mg 07/30/2020 12:00:00 AM EST [...] EVERY DAY SOLD: 07/19/2020 [facility] Nystatin 362678 UNT/ML Topical Cream 100,000 unit/gram NYSTA TIN 06/25/2020 12:00:00 AM EST cream 60 APPLY TWO TIMES A DAY NEEDED TO AFFECTED AREA GROIN AND VULVA APPLY TWO TIMES A DAY NEEDED TO AFFEC KATJA AREA GROIN AND VULVA SOLD: 08/28/2020 [facility] Fluconazole 150 MG Oral Tablet Fluconazole 06/25/2020 12:00:00 AM EST ORAL active MEDENT ([facility] y[facility] TANDEM MILL OPERATOR) Nystatin 460486 UNT/ML Topical Cream Nystatin 06/25/2020 12:00:00 AM EST active 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) 150 mg 06/25/2020 12:00:00 AM EST tablet 2 TAKE 1 TABLET BY MOUTH NOW AND 1 TOMORROW TAKE 1 TABLET BY MOUTH NOW AND 1 TOMORROW SOLD: 07/27/2020 [facility] Nystatin 594463 UNT/ML Topical Cream 100,000 unit/gram NYSTA TIN [...] 1 TOMORROW SOLD: 06/25/2020 [facility] Nystatin 087515 UNT/ML Topical Cream 100,000 unit/gram NYSTA TIN [...] AM EDT 50 mg by mouth completed 554108 trazodone by mouth [id number] 03/13/2020 06/11/2020 every evening 30 50 mg tablet 07479 174619 [id number] Siobhan Gonzales [id number] Psychiatric/Mental Health [facility] ([facility]) 100 mg 03/13/2020 12:00:00 AM EDT tablet [...] AM EST 10 mg by mouth completed [id number] propranolol by [facility] [id number] 10/11/2019 01/09/2020 three times a day 30 10 mg tablet as [facility] 90424 266016 [id number] Siobhan Gonzales [id number] Psychiatric/Mental Health [facility] ([facility]) Propranolol Hydrochloride 10 MG Oral Tablet propranolol 10/11/2019 12:00:00 AM EST 10 mg by mouth completed [id number] propranolol by [facility] [id number] 10/11/2019 01/09/2020 three times a day 30 10 mg tablet as [facility] 04061 534046 [id number] Siobhan Gonzales [id number] Psychiatric/Mental Health [facility] ([facility]) 300 mg 09/22/2019 12:00:00 AM EST [...] MOUTH EVERY DAY SOLD: 09/22/2019 [facility] [place] Carbonate 300 MG Oral Capsule lithium carbonate 12:00:00 AM EST 300 mg completed [id number] lithium carbonate 09/21/2019 once a day 300 mg capsule 66670 984355 [id number] Viv Gillespie [id number] Psychiatric/Mental Health [facility] ([facility]) 100 mg 08/31/2019 12:00:00 AM EST tablet [...] MOUTH EVERY DAY SOLD: 09/03/2019 [facility] [place] Carbonate 150 MG Oral Capsule lithium carbonate 12:00:00 AM EST 150 mg completed [id number] lithium carbonate 08/30/2019 09/21/2019 once a day 150 mg capsule 03544 033814 [id number] Anat Gonzales [id number] Psychiatric/Mental Health [facility] ([facility]) [place] Carbonate 300 MG Oral Capsule lithium carbonate 12:00:00 AM EST 300 mg completed [id number] lithium carbonate 08/30/2019 once a day 300 mg capsule 38995 535218 [id number] Siobhan Gonzales [id number] Psychiatric/Mental Health [facility] ([facility]) [place] Carbonate 300 MG Oral Capsule lithium carbonate 12:00:00 AM EST 300 mg completed [id number] lithium carbonate 08/30/2019 09/21/2019 once a day 300 mg capsule 01864 807764 [id number] Anat Gonzales [id number] Psychiatric/Mental Health [facility] ([facility]) 50 mcg 06/30/2019 12:00:00 AM EST tablet 90 TAKE ONE TABLET BY MOUTH EVERY MORNING TAKE ONE TABLET BY MOUTH EVERY MORNING SOLD: 10/07/2019 [facility] Tretinoin 1 MG/ML Topical Cream tretinoin (RETIN-A) 0. 1 % cream tretinoin (RETIN-A) 0.1 % cream 11/28/2018 12:00:00 AM EDT active Acne vulgaris Apply to affected areas Q hs , Alternate QOD, if too d [facility] Acne vulgaris 0.3-30 mg-mcg 10/10/2018 12:00:00 AM EST tablet 84 TAKE ONE TABLET BY MOUTH EVERY DAY TAKE ONE TABLET BY MOUTH EVERY DAY SOLD: 09/22/2019 [facility] Insurance Providers Payer name Policy type / Coverage type Policy ID Covered libertarian ID Covered libertarian's relationship to salcedo Policy [place] Plan Information [place] PPO 302/307 [id number] SP [id number] EXCELLUS H [id number] Self [id number] [place] [id number] S [id number] [place] 306/806 [id number] SP [id number] SOURAV [id number] SP [id number] BS iFACETS Medigap Part B [id number] Self V [id number] BS iFACETS Medigap Part B [id number] Self V [id number] BS Of [place] Commercial [id number] Self [id number] EXCELLUS C [id number] Self [id number] [place] PPO 302/307 [id number] SP [id number] [place] PPO 302/307 [id number] SP [id number] [place] PPO 302/307 [id number] SP [id number] [place] PPO 302/307 [id number] SP [id number] [facility] MCDO [id number] SP [id number] MEDICAID [id number] [place] PPO 302/307 [id number] SP [id number] [facility] [id number] SP [id number] [facility] [id number] SP [id number] MEDICAID [id number] SP [id number] MEDICAID [id number] SP [id number] BCBS OF [facility] 380/[id number] FA2 [id number] BLUE [id number] FA2 [id number] HMO BLUE [id number] FA [id number] ANSI-Commercial [id number] ANSI-Commercial [id number] ANSI-Commercial [id number] ANSI-Commercial [id number] ANSI-Commercial [id number] ANSI-Commercial [id number] EXCELLUS H [id number] EXCELLUS H [id number] Self [id number] EXCELLUS H [id number] Self [id number] [facility] I [id number] Self [id number] [facility] P [id number] S [id number] MEDICAID [id number] Self [id number] EXCELLUS BCBS S [id number] S [id number] EXCELLUS H [id number] Self [id number] SELF PAY UNAVAILABLE UNAVAILA BLE [facility] [id number] SP [id number] BCBS HMO [place] O [id number] S [id number] MEDICAID W [id number] S [id number] [facility] MEDICARE COMPLET O [id number] S [id number] PCP 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 Surgeries/Procedures Procedure Description Date Indications Data Source(s) Extended Individual Psychotherapy - 45 min 10/01/2020 12:00:00 AM EST - 10/01/2020 12:00:00 AM EST [facility] ([facility]) Extended Individual Psychotherapy - 45 min 12:00:00 AM EST [facility] ([facility]) [facility] Telemed E/M Lvl 3--Est pt 09/05/2020 12:00:00 AM EST - 09/05/2020 12:00:00 AM EST [facility] ([facility]) Telemed A/O 30" 09/05/2020 12:00:00 AM EST [facility] ([facility]) [facility] Telemed E/M Lvl 3--Est pt 09/05/2020 12:00:[address] [facility] ([facility]) Extended Individual Psychotherapy - 45 min 08/19/2020 12:00:00 AM EST - 08/19/2020 12:00:00 AM EST [facility] ([facility]) Extended Individual Psychotherapy - 45 min 0 12:00:00 AM EST [facility] ([facility]) Extended Individual Psychotherapy - 45 min 08/09/2020 12:00:00 AM EST - 08/09/2020 12:00:00 AM EST [facility] ([facility]) Extended Individual Psychotherapy - 45 min 0 12:00:00 AM EST [facility] ([facility]) OFFICE OUTPATIENT VISIT 15 MINUTES 08/08 12:00:00 AM EST - 08/08/2020 12:00:00 AM EST [facility] ([facility]) Psychotherapy ADD ON - 30 Minutes 08/08/2020 12:00:00 AM EST [facility] ([facility]) OFFICE OUTPATIENT VISIT 15 MINUTES 08/08/2020 12:00:00 AM EST [facility] ([facility]) [facility] Telemed E/M Lvl 3--Est pt 07/23/2020 12:00:00 AM EST - 07/23/2020 12:00:00 AM EST [facility] ([facility]) Telemed A/O 45" 07/23/2020 12:00:00 AM EST [facility] ([facility]) [facility] Telemed E/M Lvl 3--Est pt 07/23/2020 12:00:[address] [facility] ([facility]) Extended Individual Psychotherapy - 45 min 06/25/2020 12:00:00 AM EST - 06/25/2020 12:00:00 AM EST [facility] ([facility]) Extended Individual Psychotherapy - 45 min 0 12:00:00 AM EST [facility] ([facility]) Extended Individual Psychotherapy - 45 min 06/03/2020 12:00:00 AM EDT - 06/03/2020 12:00:00 AM EDT [facility] ([facility]) Extended Individual Psychotherapy - 45 min 0 12:00:00 AM EDT [facility] ([facility]) Extended Individual Psychotherapy - 45 min 05/22/2020 12:00:00 AM EDT - 05/22/2020 12:00:00 AM EDT [facility] ([facility]) Extended Individual Psychotherapy - 45 min 0 12:00:00 AM EDT [facility] ([facility]) Extended Individual Psychotherapy - 45 min 05/17/2020 12:00:00 AM EDT - 05/17/2020 12:00:00 AM EDT [facility] ([facility]) Extended Individual Psychotherapy - 45 min 0 12:00:00 AM EDT [facility] ([facility]) [facility] Telemed E/M Lvl 3--Est pt 05/16/2020 12:00:00 AM EDT - 05/16/2020 12:00:00 AM EDT [facility] ([facility]) [facility] Telemed E/M Lvl 3--Est pt 05/16/2020 12:00:00 AM E DT [facility] ([facility]) [facility] Telemed E/M Lvl 3--Est pt 05/02/2020 12:00:00 AM EDT - 05/02/2020 12:00:00 AM EDT [facility] ([facility]) [facility] Telemed E/M Lvl 3--Est pt 05/02/2020 12:00:00 AM E DT [facility] ([facility]) [facility] Telemed E/M Lvl 3--Est pt 01/31/2020 12:00:00 AM EDT - 01/31/2020 12:00:00 AM EDT [facility] ([facility]) [facility] Telemed E/M Lvl 3--Est pt 01/31/2020 12:00:00 AM E DT [facility] ([facility]) [facility] Telemed E/M Lvl 3--Est pt 01/03/2020 12:00:00 AM EDT - 01/03/2020 12:00:00 AM EDT [facility] ([facility]) [facility] Telemed E/M Lvl 3--Est pt 01/03/2020 12:00:00 AM E DT [facility] ([facility]) [facility] Telemed E/M Lvl 3--Est pt 11/16/2019 12:00:00 AM EDT - 11/16/2019 12:00:00 AM EDT [facility] ([facility]) [facility] Telemed E/M Lvl 3--Est pt 11/16/2019 12:00:00 AM E DT [facility] ([facility]) Extended Individual Psychotherapy - 45 min 11/10/2019 12:00:00 AM EDT - 11/10/2019 12:00:00 AM EDT [facility] ([facility]) Extended Individual Psychotherapy - 45 min 0 12:00:00 AM EDT [facility] ([facility]) Extended Individual Psychotherapy - 45 min 10/20/2019 12:00:00 AM EST - 10/20/2019 12:00:00 AM EST [facility] ([facility]) Extended Individual Psychotherapy - 45 min 0 12:00:00 AM EST [facility] ([facility]) OFFICE OUTPATIENT VISIT 15 MINUTES 10/11 12:00:00 AM EST - 10/11/2019 12:00:00 AM EST [facility] ([facility]) OFFICE OUTPATIENT VISIT 15 MINUTES 10/11/2019 12:00:00 AM EST [facility] ([facility]) Brief Individual Psychotherapy - 30 min 10/09/2019 12:00:00 AM EST - 10/09/2019 12:00:00 AM EST [facility] ([facility]) Brief Individual Psychotherapy - 30 min 10/09/2019 12: 00:00 AM EST [facility] ([facility]) Extended Individual Psychotherapy - 45 min 10/09/2019 12:00:00 AM EST - 10/09/2019 12:00:00 AM EST [facility] ([facility]) Extended Individual Psychotherapy - 45 min 0 12:00:00 AM EST [facility] ([facility]) OFFICE OUTPATIENT VISIT 15 MINUTES 09/21 12:00:00 AM EST - 09/21/2019 12:00:00 AM EST [facility] ([facility]) OFFICE OUTPATIENT VISIT 15 MINUTES 09/21/2019 12:00:00 AM EST [facility] ([facility]) Extended Individual Psychotherapy - 45 min 09/11/2019 12:00:00 AM EST - 09/11/2019 12:00:00 AM EST [facility] ([facility]) Extended Individual Psychotherapy - 45 min 0 12:00:00 AM EST [facility] ([facility]) OFFICE OUTPATIENT VISIT 15 MINUTES 08/30 12:00:00 AM EST - 08/30/2019 12:00:00 AM EST [facility] ([facility]) OFFICE OUTPATIENT VISIT 15 MINUTES 08/30/2019 12:00:00 AM EST [facility] ([facility]) Extended Individual Psychotherapy - 45 min 08/29/2019 12:00:00 AM EST - 08/29/2019 12:00:00 AM EST [facility] ([facility]) Extended Individual Psychotherapy - 45 min 0 12:00:00 AM EST [facility] ([facility]) Influenza immunization was not administe red for reasons documented by clinician (e.g., patient allergy or other medical reasons, patient declined or other patient reasons, vaccine not available or other system reasons) 08/24/2019 12:00:00 AM EST [facility] ([facility] Results ID Date Data Source [id number] 09/23/2020 12:00:00 AM EST [facility] Name Value Range Interpretation Code Description Data Zoraida rce(s) Supporting Document(s) SARS-CoV2 Rapid Antigen Negative [facility] This lab was ordered by [facility] and reported by [facility]. ID Date Data Source [id number] 06/25/2020 12:00:00 PM EST [facility] ([facility] [employer]) Name Value Range Interpretation Code Description Data Zoraida rce(s) Supporting Document(s) CT/NG Laboratory test result [facility] ([facility] [employer]) CHLAMYDIA TRACHOMATIS: Negative NEISSERIA GONORRHOEAE: Negative Testing performed by the FDA-approved [employer] APTIMA COMBO 2 Assay. The APTIMA COMBO [...] of age. CT/NG Laboratory test result [facility] ([facility] [employer]) ID Date Data Source [id number] 04/10/2020 12:00:00 PM EDT [facility] (Emeka Huffman [employer]PER[employer]) Name Value Range Interpretation Code Description Data Zoraida rce(s) Supporting Document(s) TP Reflex HPV ASCUS Laboratory test result [facility] ([facility] [employer]) TP Reflex HPV ASCUS Laboratory test result [facility] ([facility] [employer]) SPECIMEN PART------ A. Cervical, Endocervical, ThinPrep Pap (Fiberline Supervisor) CYTOLOGY HX-------- Date of Last Menstrual Period: 03/26/20 Other Information:Previous Pap: 10/13/19 HPV Positive Oral Contraceptives FINAL DIAGNOSIS---- INTERPRETATION: Negative for Intraepithelial Lesion or Malignancy. SPECIMEN ADEQUACY:Satisfactory for evaluation. Endocervical/transformation zone component present. ID Date Data Source [id number] 03/19/2020 01:29:32 PM EDT [facility] Name Value Range Interpretation Code Description Data Zoraida rce(s) Supporting Document(s) Progress Note [facility] [id number] [file] [id number] ID Date Data Source [id number] 03/06/2020 12:00:00 PM EDT [facility] ([facility] [employer]DE[employer]ILL OPERATOR) Name Value Range Interpretation Code Description Data Zoraida rce(s) Supporting Document(s) CT/NG Laboratory test result [facility] ([facility] [employer] OPER[employer]) CHLAMYDIA TRACHOMATIS: Negative NEISSERIA GONORRHOEAE: Negative Testing performed by the FDA-approved [employer] APTIMA COMBO 2 Assay. The APTIMA COMBO [...] of age. CT/NG Laboratory test result [facility] ([facility] T[employer]DEM MILL OPERATOR) ID Date Data Source [id number] 10/13/2019 12:00:00 PM EST [facility] ([facility] [employer] OPERATOR) Name Value Range Interpretation Code Description Data Zoraida rce(s) Supporting Document(s) HPV Laboratory test result Abnormal (applies to non -numeric results) [facility] ([facility] T[employer]DEM MILL OPERATOR) HR-HPV: Positive Test performed by the FDA-approved [employer] (Gen-Probe) APTIMA HPV test, which detects HPV genotypes: 16, 18, 31, 33, 35, 39, 45, 51, 52, 56, 58, 59, 66, and 68. TP Reflex HPV ASCUS Laboratory test result [facility] ([facility] [employer]DEM MILL OPERATOR) ID Date Data Source [id number] 10/13/2019 12:00:00 PM EST [facility] ([facility] [employer]PER[employer]) Name Value Range Interpretation Code Description Data Zoraida rce(s) Supporting Document(s) Cytology report of Cervical or vaginal smear or scrapi ng Cyto stain.thin prep Laboratory test result Abnormal (applies to non-numeric results) [facility] ([facility] [employer]) SPECIMEN PART------ A. Cervical, Endocervical, ThinPrep Pap (Fiberline Supervisor) CYTOLOGY HX-------- Date of Last Menstrual Period: 09/01/19 Other Information:Previous Normal Pap: 05/23/19 Oral Contraceptives FINAL DIAGNOSIS---- GENERAL CATEGORY: Abnormal INTERPRETATION: Atypical Squamous Cells Of Undetermined Significance (ASC-US). SPECIMEN ADEQUACY:Satisfactory for evaluation. Endocervical/transformation zone component present. ID Date Data Source VITAMIN B12 LEVEL 08/24/2019 12:00:00 AM EST eCW1 ([facility]) Name Value Range Interpretation Code Description Data Zoraida rce(s) Supporting Document(s) [id number] VITAMIN B12 LEVEL eCW1 ([facility]) ID Date Data Source TSH 08/24/2019 12:00:00 AM EST eCW1 ([facility]) Name Value Range Interpretation Code Description Data Zoraida rce(s) Supporting Document(s) 1.340 0.358-3.740 THYROID STIMULATING HORM ONE eCW1 ([facility]) ID Date Data Source RHEUMATOID FACTOR QUANT 08/24/2019 12:00:00 AM EST eCW1 ([facility]) Name Value Range Interpretation Code Description Data Zoraida rce(s) Supporting Document(s) 53.9 <15.0 RHEUMATOID FACTOR QUANT eCW1 ( [facility]) ID Date Data Source Comprehensive Metabolic Profile (CMP) 08/24/2019 12:00:00 AM EST eCW1 ([facility]) Name Value Range Interpretation Code Description Data Zoraida rce(s) Supporting Document(s) 9 7-18 BLOOD UREA NITROGEN eCW1 ([facility]) 75 70-100 GLUCOSE, FASTING eCW1 ([facility]) 0.73 0.55-1.30 CREATININE FOR GFR eCW1 ([facility]) 4.4 3.5-5.1 POTASSIUM SERUM eCW1 ([facility]) 142 136-145 SODIUM LEVEL eCW1 ([facility]) > 60.0 >60 GLOMERULAR FILTRATION RATE eCW 1 ([facility]) 109 98-107 CHLORIDE LEVEL eCW1 ([facility]) 9.1 8.5-10.1 CALCIUM LEVEL eCW1 ([facility]) 27 21-32 CARBON DIOXIDE LEVEL eCW1 ([facility]) 11 7-37 AST/SGOT eCW1 ([facility]) 16 12-78 ALT/SGPT eCW1 ([facility]) 65 45-117 ALKALINE PHOSPHATASE eCW1 ([facility]) 3.8 3.2-5.2 ALBUMIN eCW1 ([facility]) 7.5 6.4-8.2 TOTAL PROTEIN eCW1 ([facility]) 0.4 0.2-1.0 BILIRUBIN,TOTAL eCW1 ([facility]) 1.03 1.00-1.93 ALBUMIN/GLOBULIN RATIO eCW1 ([facility]) Procedure Social History Code Duration Value Status Description Data Source(s ) Smoking 10/01/2020 12:00:00 AM EST Unknown if ever smoked comp leted Unknown if ever smoked [facility] ([facility]) Smoking 09/07/2020 12:00:00 AM EST Never Smoker completed Never S moker eCW1 ([facility]) Smoking 09/07/2020 12:00:00 AM EST Never Smoker completed Never S moker eCW1 ([facility]) Smoking 09/05/2020 12:00:00 AM EST Never Smoker completed Never S moker eCW1 ([facility]) Smoking 09/05/2020 12:00:00 AM EST Unknown if ever smoked comp leted Unknown if ever smoked [facility] ([facility]) Smoking 08/27/2020 12:00:00 AM EST Never Smoker completed Never Juan romeo eCW1 ([facility]) Smoking 08/19/2020 12:00:00 AM EST Unknown if ever smoked comp leted Unknown if ever smoked [facility] ([facility]) Smoking 08/09/2020 12:00:00 AM EST Unknown if ever smoked comp leted Unknown if ever smoked [facility] ([facility]) Smoking 08/08/2020 12:00:00 AM EST Unknown if ever smoked comp leted Unknown if ever smoked [facility] ([facility]) Smoking 07/23/2020 12:00:00 AM EST Unknown if ever smoked comp leted Unknown if ever smoked [facility] ([facility]) Smoking 07/15/2020 12:00:00 AM EST Never Smoker completed Never Juan romeo eCW1 ([facility]) Smoking 06/25/2020 12:00:00 AM EST Non-smoker, Non-drink er, Non-drug User completed Non-smoker, Non-drinker, Non-drug User [facility] ([facility] [employer]) Smoking 06/25/2020 12:00:00 AM EST Unknown if ever smoked comp leted Unknown if ever smoked [facility] ([facility]) Smoking 06/03/2020 12:00:00 AM EDT Unknown if ever smoked comp leted Unknown if ever smoked [facility] ([facility]) Smoking 05/22/2020 12:00:00 AM EDT Unknown if ever smoked comp leted Unknown if ever smoked [facility] ([facility]) Smoking 05/17/2020 12:00:00 AM EDT Unknown if ever smoked comp leted Unknown if ever smoked [facility] ([facility]) Smoking 05/16/2020 12:00:00 AM EDT Unknown if ever smoked comp leted Unknown if ever smoked [facility] ([facility]) Smoking 05/02/2020 12:00:00 AM EDT Unknown if ever smoked comp leted Unknown if ever smoked [facility] ([facility]) Smoking 01/31/2020 12:00:00 AM EDT Unknown if ever smoked comp leted Unknown if ever smoked [facility] ([facility]) Smoking 01/03/2020 12:00:00 AM EDT Unknown if ever smoked comp leted Unknown if ever smoked [facility] ([facility]) Smoking 11/16/2019 12:00:00 AM EDT Unknown if ever smoked comp leted Unknown if ever smoked [facility] ([facility]) Smoking 11/10/2019 12:00:00 AM EDT Unknown if ever smoked comp leted Unknown if ever smoked [facility] ([facility]) Smoking 10/20/2019 12:00:00 AM EST Unknown if ever smoked comp leted Unknown if ever smoked [facility] ([facility]) Smoking 10/11/2019 12:00:00 AM EST Unknown if ever smoked comp leted Unknown if ever smoked [facility] ([facility]) Smoking 10/09/2019 12:00:00 AM EST Unknown if ever smoked comp leted Unknown if ever smoked [facility] ([facility]) Smoking 09/21/2019 12:00:00 AM EST Unknown if ever smoked comp leted Unknown if ever smoked [facility] ([facility]) Smoking 09/11/2019 12:00:00 AM EST Unknown if ever smoked comp leted Unknown if ever smoked [facility] ([facility]) Smoking 08/30/2019 12:00:00 AM EST Unknown if ever smoked comp leted Unknown if ever smoked [facility] ([facility]) Smoking 08/29/2019 12:00:00 AM EST Unknown if ever smoked comp leted Unknown if ever smoked [facility] ([facility]) Smoking 08/24/2019 12:00:00 AM EST Never Smoker completed Never S moker eCW1 ([facility]) Smoking 08/24/2019 12:00:00 AM EST Never Smoker completed Never S moker eCW1 ([facility]) Smoking 08/24/2019 12:00:00 AM EST Never Smoker completed Never S moker eCW1 ([facility]) Vital Signs ID Date Data Source UNK Name Value Range Interpretation Code Description Data Source(s) Diastolic blood pressure 90 mm[Hg] 90 mm[Hg] eCW1 ([facility]) Systolic blood pressure 136 mm[Hg] 136 mm[Hg] e CW1 ([facility]) Body temperature 98.2 [degF] 98.2 [degF] eCW1 ( [facility]) Respiratory rate 18 /min 18 /min eCW1 ([facility]) Heart rate 84 /min 84 /min eCW1 ([facility]) Body mass index (BMI) [Ratio] 25.98 kg/m2 25.98 kg/m2 eCW1 ([facility]) Body height 67.5 [in_i] 67.5 [in_i] W1 ([facility]) Body weight 168.4 [lb_av] 168.4 [lb_av] eCW1 ([facility]) Diastolic blood pressure 0 mm[Hg] Normal (applies to non-numeric results) 0 mm[Hg] [facility] Systolic blood pressure 0 mm[Hg] Normal (applies t o non-numeric results) 0 mm[Hg] [facility] ([facility]) Body mass index (BMI) [Ratio] 0.00 kg/m2 No rmal (applies to non-numeric results) 0.00 kg/m2 [facility] ([facility]) Body weight Measured 0.00 lbs Normal (applies to n on-numeric results) 0.00 lbs [facility] ([facility]) Body height 0.00 in Normal (applies to non-numeric resu lts) 0.00 in [facility] ([facility]) Diastolic blood pressure 68 mm[Hg] 68 mm[Hg] eCW1 ([facility]) Systolic blood pressure 110 mm[Hg] 110 mm[Hg] e CW1 ([facility]) Body temperature 97.8 [degF] 97.8 [degF] eCW1 ( [facility]) Respiratory rate 18 /min 18 /min eCW1 ([facility]) Heart rate 100 /min 100 /min eCW1 ([facility]) Body mass index (BMI) [Ratio] 26.38 kg/m2 26.38 kg/m2 eCW1 ([facility]) Body height 67.5 [in_i] 67.5 [in_i] eCW1 ([facility]) Body weight 171 [lb_av] 171 [lb_av] eCW1 ([facility]) Diastolic blood pressure 0 mm[Hg] Normal (applies to non-numeric results) 0 mm[Hg] [facility] ([facility]) Systolic blood pressure 0 mm[Hg] Normal (applies t o non-numeric results) 0 mm[Hg] [facility] ([facility]) Body mass index (BMI) [Ratio] 0.00 kg/m2 No rmal (applies to non-numeric results) 0.00 kg/m2 [facility] ([facility]) Body weight Measured 0.00 lbs Normal (applies to n on-numeric results) 0.00 lbs [facility] ([facility]) Body height 0.00 in Normal (applies to non-numeric resu lts) 0.00 in [facility]) Diastolic blood pressure 0 mm[Hg] Normal (applies to non-numeric results) 0 mm[Hg] [facility] ([facility]) Systolic blood pressure 0 mm[Hg] Normal (applies t o non-numeric results) 0 mm[Hg] [facility] ([facility]) Body mass index (BMI) [Ratio] 0.00 kg/m2 No rmal (applies to non-numeric results) 0.00 kg/m2 [facility] ([facility]) Body weight Measured 0.00 lbs Normal (applies to n on-numeric results) 0.00 lbs [facility] ([facility]) Body height 0.00 in Normal (applies to non-numeric resu lts) 0.00 in [facility] ([facility]) Diastolic blood pressure 0 mm[Hg] Normal (applies to non-numeric results) 0 mm[Hg] [facility] ([facility]) Systolic blood pressure 0 mm[Hg] Normal (applies t o non-numeric results) 0 mm[Hg] [facility] ([facility]) Body mass index (BMI) [Ratio] 0.00 kg/m2 No rmal (applies to non-numeric results) 0.00 kg/m2 [facility] ([facility]) Body weight Measured 0.00 lbs Normal (applies to n on-numeric results) 0.00 lbs [facility] ([facility]) Body height 0.00 in Normal (applies to non-numeric resu lts) 0.00 in [facility]) Diastolic blood pressure 0 mm[Hg] Normal (applies to non-numeric results) 0 mm[Hg] [facility] ([facility]) Systolic blood pressure 0 mm[Hg] Normal (applies t o non-numeric results) 0 mm[Hg] [facility] ([facility]) Body mass index (BMI) [Ratio] 0.00 kg/m2 No rmal (applies to non-numeric results) 0.00 kg/m2 [facility] ([facility]) Body weight Measured 0.00 lbs Normal (applies to n on-numeric results) 0.00 lbs [facility] ([facility]) Body height 0.00 in Normal (applies to non-numeric resu lts) 0.00 in [facility] ([facility]) Body surface area Derived from formula 1.89 m2 1.89 m2 [facility] ([facility] [employer]) Body mass index (BMI) [Ratio] 26.1 kg/m2 26.1 k g/m2 [facility] ([facility] [employer]) Body weight 169.00 [lb_av] 169.00 [lb_av] [facility] ([facility] [employer]) Body height 67.5 [in_i] 67.5 [in_i] [facility] ([facility] [employer] OPERATOR) 5'7.50" Diastolic blood pressure 64 mm[Hg] 64 mm[Hg] [facility] ([facility] [employer]) Systolic blood pressure 100 mm[Hg] 100 mm[Hg] [facility] ([facility] [employer]) Body surface area 1.89 m2 1.89 m2 [facility] ([facility] [employer]PER[employer]) Diastolic blood pressure 0 mm[Hg] Normal (applies to non-numeric results) 0 mm[Hg] [facility] ([facility]) Systolic blood pressure 0 mm[Hg] Normal (applies t o non-numeric results) 0 mm[Hg] [facility] ([facility]) Body mass index (BMI) [Ratio] 0.00 kg/m2 No rmal (applies to non-numeric results) 0.00 kg/m2 [facility] ([facility]) Body weight Measured 171.00 lbs Normal (applies to n on-numeric results) 171.00 lbs [facility] ([facility]) Body height 0.00 in Normal (applies to non-numeric resu lts) 0.00 in [facility] ([facility]) Systolic blood pressure 0 mm[Hg] Normal (applies t o non-numeric results) 0 mm[Hg] [facility] ([facility]) Body mass index (BMI) [Ratio] 0.00 kg/m2 No rmal (applies to non-numeric results) 0.00 kg/m2 [facility] ([facility]) Body weight Measured 0.00 lbs Normal (applies to n on-numeric results) 0.00 lbs [facility] ([facility]) Body height 0.00 in Normal (applies to non-numeric resu lts) [facility]) Diastolic blood pressure 0 mm[Hg] Normal (applies to non-numeric results) 0 mm[Hg] [facility] ([facility]) Diastolic blood pressure 0 mm[Hg] Normal (applies to non-numeric results) 0 mm[Hg] [facility] Systolic blood pressure 0 mm[Hg] Normal (applies t o non-numeric results) 0 mm[Hg] [facility] ([facility]) Body mass index (BMI) [Ratio] 0.00 kg/m2 No rmal (applies to non-numeric results) 0.00 kg/m2 [facility] ([facility]) Body weight Measured 0.00 lbs Normal (applies to n on-numeric results) 0.00 lbs [facility] ([facility]) Body height 0.00 in Normal (applies to non-numeric resu lts) 0.00 in [facility] ([facility]) Diastolic blood pressure 78 mm[Hg] 78 mm[Hg] eCW1 ([facility]) Systolic blood pressure 122 mm[Hg] 122 mm[Hg] e CW1 ([facility]) Body temperature 98.9 [degF] 98.9 [degF] eCW1 ( [facility]) Respiratory rate 18 /min 18 /min eCW1 ([facility]) Heart rate 114 /min 114 /min eCW1 ([facility]) Body mass index (BMI) [Ratio] 25.92 kg/m2 25.92 kg/m2 eCW1 ([facility]) Body height 67.5 [in_us] 67.5 [in_us] eCW1 ([facility]) Body weight Measured 168 [lb_av] 168 [lb_av] eC W1 ([facility]) Patient Treatment Plan of Care Planned Activity Planned Date Details Description Data Source (s) Amoxicillin 250 MG Oral Capsule 09/05/2020 12:00:00 AM EST eCW1 ([facility]) Fluconazole 150 MG Oral Tablet [Diflucan] 09/05/2020 12:00:00 AM ES T eCW1 ([facility]) Amoxicillin 250 MG Oral Capsule 09/05/2020 12:00:00 AM EST eCW1 ([facility]) Fluconazole 150 MG Oral Tablet [Diflucan] 09/05/2020 12:00:00 AM ES T eCW1 ([facility]) Amoxicillin 250 MG Oral Capsule 09/05/2020 12:00:00 AM EST eCW1 ([facility]) Fluconazole 150 MG Oral Tablet [Diflucan] 09/05/2020 12:00:00 AM ES T eCW1 ([facility]) adapalene 0.001 MG/MG Topical Gel [Differin] 08/27/2020 12:00:00 AM EST eCW1 ([facility]) Tretinoin 1 MG/ML Topical Cream 11/28/2018 12:00:[address] [facility]
[2020-10-09 17:54] LABS: HEMATOCRIT 43.1 % (36.0-47.0); HEMOGLOBIN 14.3 g/dl (12.0-15.5); MEAN CORPUSCULAR HEMOGLOBIN 31.2 pg (27.0-33.0); MEAN CORPUSCULAR HGB CONC 33.2 g/dl (32.0-36.5); MEAN CORPUSCULAR VOLUME 93.9 fl (80.0-96.0); PLATELET COUNT, AUTOMATED 227 10^3/uL (150-450); RED BLOOD COUNT 4.59 10^6/uL (4.00-5.40); WHITE BLOOD COUNT 9.1 10^3/uL (4.0-10.0)
[2020-10-09 18:12] LABS: AMPHETAMINES LEVEL URINE NEGATIVE (NEGATIVE); BARBITURATES URINE NEGATIVE (NEGATIVE); BENZODIAZEPINES URINE NEGATIVE (NEGATIVE); CANNABINOIDS URINE NEGATIVE (NEGATIVE); COCAINE METABOLITE URINE NEGATIVE (NEGATIVE); METHADONE URINE NEGATIVE (NEGATIVE); OPIATES URINE NEGATIVE (NEGATIVE); PHENCYCLIDINE URINE NEGATIVE (NEGATIVE)
[2020-10-09 18:15] LABS: HCG, SERUM QUALITATIVE NEGATIVE (NEGATIVE)
[2020-10-09] MEDS ORDERED: SETL1TAB PO (18:20)
[2020-10-09 18:23] LABS: ACETAMINOPHEN LEVEL < 2.0 UG/ML (10.0-30.0); ALBUMIN 3.8 GM/DL (3.2-5.2); ALT/SGPT 18 U/L (12-78); BILIRUBIN,DIRECT < 0.1 MG/DL (0.0-0.2); BILIRUBIN,TOTAL 0.1 MG/DL (0.2-1.0); BLOOD UREA NITROGEN 10 MG/DL (7-18); CALCIUM LEVEL 8.4 MG/DL (8.5-10.1); CARBON DIOXIDE LEVEL 24 MEQ/L (21-32); CHLORIDE LEVEL 111 MEQ/L (98-107); CREATININE FOR GFR 0.69 MG/DL (0.55-1.30); ETHYL ALCOHOL (ETHANOL) < 0.003 % (0.000-0.010); GLOMERULAR FILTRATION RATE > 60.0 (>60); GLUCOSE, FASTING 95 MG/DL (70-100); POTASSIUM SERUM 3.8 MEQ/L (3.5-5.1); SALICYLATE LEVEL < 1.7 MG/DL (5.0-30.0); SODIUM LEVEL 143 MEQ/L (136-145); TOTAL PROTEIN 7.2 GM/DL (6.4-8.2)
[2020-10-09] MEDS ORDERED: LITH300T2 PO (20:20)
[2020-10-09] MEDS ORDERED: TRAM50TA2 PO (20:21)
[2020-10-09] MEDS ORDERED: TRAZ-252 PO (20:21)
[2020-10-09] MEDS ORDERED: ACET-683 PO (20:21)
[2020-10-09] MEDS ORDERED: OLANZapine ORAL DISINTEGRATING TAB 5MG PO PRN (21:00)
[2020-10-09] MEDS ORDERED: MOM 30ML SUSPENSION UDC PO PRN (21:00)
[2020-10-09] MEDS ORDERED: MAALOX 30 ML SUSP *UDC PO PRN (21:00)
--- OUTSIDE RECORDS SUMMARY | 2020-10-09 21:31 | CCD ---
Author Author [facility] Organization [facility] Address Unknown Phone Unavailable Care Team Providers Care Web Search Evaluator Name Role Phone Anat BLAIR MD Unavailable [...] Unavailable BLAIR, L VIGNESH PARIKH Unavailable Unavailable BLIAR, L VIGNESH PARIKH Unavailable Unavailable BLAIR, L [...] VIGNESH PARIKH Unavailable Unavailable Verna, Raul BennettViv [facility] Unavailable Unavailable Verna, K Viv [facility] Unavailable Unavailable [place], K Viv [facility] Unavailable Unavailable [place], K Viv [facility] Unavailable Unavailable [place], K Viv [facility] Unavailable Unavailable [place], K Viv [facility] [employer] Unavailable Unavailable AGATA SALGADO MD Unavailable Unavailable [...] GATES, E GAYLE Unavailable Unavailable MACQUEEN, SIOBHAN STEAK SAUCE MAKER Unavailable Unavailable MACQUEEN, SIOBHAN STEAK SAUCE MAKER Unavailable Unavailable MACQUEEN, SIOBHAN STEAK SAUCE MAKER Unavailable Unavailable MACQUEEN, SIOBHAN STEAK SAUCE MAKER Unavailable Unavailable MACQUEEN, SIOBHAN STEAK SAUCE MAKER Unavailable Unavailable MACQUEEN, SIOBHAN STEAK SAUCE MAKER Unavailable Unavailable MACQUEEN, SIOBHAN STEAK SAUCE MAKER Unavailable Unavailable MACQUEEN, SIOBHAN STEAK SAUCE MAKER Unavailable Unavailable MACQUEEN, SIOBHAN STEAK SAUCE MAKER Unavailable Unavailable MACQUEEN, SIOBHAN STEAK SAUCE MAKER Unavailable Unavailable MACQUEEN, SIOBHAN STEAK SAUCE MAKER Unavailable Unavailable Bernice Calvo Unavailable Re-disclosure Warning [...] is protected by Article 27-F of the [facility] Public Health law. If you continue you may have access to information: Regarding HIV / AIDS; Provided by facilities licensed or operated by the [facility] Office of Mental Health; or Provided by the [facility] Office for People With Developmental Disabilities. If such information is present, then the following [facility] mandated warning applies: This information has been [...] law may result in a fine or mcc sentence or both. A general authorization for the release of medical or other information is NOT sufficient authorization for further disc losure. Allergies and Adverse Reactions Type Description Substance Reaction Status Data Source(s ) Propensity to adverse reactions to substance Zyprexa (olanza pine) olanzapine 5 MG Oral Tablet [Zyprexa] Active [facility] ([facility]) Sulfa (for allergy use only) Sulfa (for allergy use only) Schultz lfa (for allergy use only) seizures Active eCW1 ([facility]) Family History Family Member Name Family Member Gender Family Member Status Date o f Status Description Data Source(s) Unknown Male Problem MEDENT ([facility]) Unknown Unknown Problem 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) Encounters Encounter Providers Location Date Indications Data Source(s ) Outpatient Attender: JUN SALGADO MD 03/25/2021 12:00:00 A M [facility] Extended Individual Psychotherapy - 45 min Attender: Bernice Calvo [facility] 10/01/2020 12:00:00 PM EST - 10/01/2020 12:00:00 PM EST [facility] ([facility]) Attender: Bernice Calvo 10/01/2020 12:00:00 AM EST [facility] ([facility]) [place] [address] [facility] [place] [address] 09/10/2020 12:00:00 AM EST eCW1 ([facility]) Outpatient Attender: Viv Gillespie [facility] 09/05/2020 08:30:00 AM EST - 09/05/2020 08:30:00 AM EST [facility] ([facility]) [place] [address] [facility] [address] 09/05/2020 12:00:00 AM EST eCW1 ([facility]) [place] [address] [facility] [address] 09/05/2020 12:00:00 AM EST eCW1 ([facility]) Attender: Viv POWELLDAVID 09/05/2020 12: 00:00 AM EST [facility] ([facility]) [place] [address] [facility] [address] 08/27/2020 12:00:00 AM EST eCW1 ([facility]) Extended Individual Psychotherapy - 45 min Attender: Bernice Umesh [facility] 08/19/2020 08:00:00 AM EST - 08/19/2020 08:00:00 AM EST [facility] ([facility]) Attender: Bernice Umesh 08/19/2020 12:00:00 AM EST [facility] ([facility]) Extended Individual Psychotherapy - 45 min Attender: Bernice Umesh [facility] 08/09/2020 08:00:00 AM EST - 08/09/2020 08:00:00 AM EST [facility] ([facility]) Attender: Bernice Calvo 08/09/2020 12:00:00 AM EST [facility] ([facility]) Outpatient Attender: Viv POWELLDAVID [facility] 08/08/2020 08:00:00 AM EST - 08/08/2020 08:00:00 AM EST [facility] ([facility]) Attender: Viv ORANTES 08/08/2020 12: 00:00 AM EST [facility] ([facility]) Outpatient Att[facility]: [facility] 07/23/2020 07:30:00 AM EST - 07/23/2020 07:30:00 AM EST [facility] ([facility]) Attender: Viv Gillespie [facility] 07/23/2020 12: 00:00 AM EST [facility] ([facility]) [place] [address] [facility] [address] 07/15/2020 12:00:00 AM EST eCW1 ([facility]) [place] [address] [facility] [address] 06/27/2020 12:00:00 AM EST eCW1 ([facility]) Extended Individual Psychotherapy - 45 min Attender: Bernice Calvo [facility] 06/25/2020 09:00:00 AM EST - 06/25/2020 09:00:00 AM EST [facility] ([facility]) Outpatient Attender: VIGNESH BLAIR MD [facility] 10/2019 08:00:00 AM EST MEDENT ([facility]) Attender: Bernice Calvo 06/25/2020 12:00:00 AM EST [facility] ([facility]) [place] [address] [facility] [address] 06/21/2020 12:00:00 AM EDT eCW1 ([facility]) Unknown [address] [facility] [place] [address] 06/21/2020 12:00:00 AM EDT eCW1 ([facility]) Extended Individual Psychotherapy - 45 min Attender: Bernice Calvo [facility] 06/03/2020 02:00:00 AM EDT - 06/03/2020 02:00:00 AM EDT [facility] ([facility]) Attender: Bernice Calvo 06/03/2020 12:00:00 AM EDT [facility] ([facility]) Extended Individual Psychotherapy - 45 min Attender: Bernice Calvo [facility] 05/22/2020 09:00:00 AM EDT - 05/22/2020 09:00:00 AM EDT [facility] ([facility]) Attender: Bernice Calvo 05/22/2020 12:00:00 AM EDT [facility] ([facility]) Outpatient Attender: GAYLE GATES 05/21/2020 12:00:00 AM [facility] Extended Individual Psychotherapy - 45 min Attender: Bernice Umesh [facility] Twila 05/17/2020 09:00:00 AM EDT - 05/17/2020 09:00:00 AM EDT [facility] ([facility]) Attender: Bernice Calvo 05/17/2020 12:00:00 AM EDT [facility] ([facility]) Outpatient Attender: SIOBHAN GONZALES NP [facility] Yoandy coppola 05/16/2020 10:30:00 AM EDT - 05/16/2020 10:30:00 AM EDT [facility] ([facility]) Attender: SIOBHAN GONZALES NP 05/16/2020 12:00:00 AM EDT [facility] ([facility]) Outpatient Attender: SIOBHAN GONZALES NP [facility] Yoandy coppola 05/02/2020 12:30:00 PM EDT - 05/02/2020 12:30:00 PM EDT [facility] ([facility]) Attender: SIOBHAN GONZALES NP 05/02/2020 12:00:00 AM EDT [facility] ([facility]) Outpatient Attender: VIGNESH [facility] 09:15:00 AM EDT MEDENT ([facility]) Outpatient Attender: JUN SALGADO MD [id number] 03/19/2020 12:0 0:00 AM EDT Rheumatoid arthritis with rheumatoid factor of multiple sites without organ or systems involvement [facility] Rheumatoid arthritis with rheumatoid fac tor of multiple sites without organ or systems involvement Outpatient Attender: JUN SALGADO MD 03/19/2020 12:00:00 A M [facility] Outpatient Attender: VIGNESH [facility] 09:15:00 AM EDT MEDENT ([facility]) Outpatient Attender: SIOBHAN GONZALES NP [facility] Yoandy coppola 01/31/2020 04:30:00 AM EDT - 01/31/2020 04:30:00 AM EDT [facility] ([facility]) Attender: SIOBHAN GONZALES NP 01/31/2020 12:00:00 AM EDT [facility] ([facility]) Outpatient Attender: SIOBHAN GONZALES NP [facility] Yoandy anat 01/03/2020 04:30:00 AM EDT - 01/03/2020 04:30:00 AM EDT [facility] ([facility]) Attender: SIOBHAN GONZALES NP 01/03/2020 12:00:00 AM EDT [facility] ([facility]) Outpatient Attender: SIOBHAN GONZALES NP [facility] anat 11/16/2019 04:30:00 AM EDT - 11/16/2019 04:30:00 AM EDT [facility] ([facility]) Attender: SIOBHAN GONZALES NP 11/16/2019 12:00:00 AM EDT [facility] ([facility]) Attender: Bernice Calvo 11/10/2019 12:00:00 AM EDT [facility] ([facility]) Extended Individual Psychotherapy - 45 min Attender: Bernice Umesh [facility] 11/09/2019 05:45:00 AM EDT - 11/09/2019 05:45:00 AM EDT [facility] ([facility]) Extended Individual Psychotherapy - 45 min Attender: Bernice Umesh [facility] 10/20/2019 02:00:00 AM EST - 10/20/2019 02:00:00 AM EST [facility] ([facility]) Attender: Bernice Calvo 10/20/2019 12:00:00 AM EST [facility] ([facility]) Outpatient Attender: VIGNESH BLAIR MD [facility] 08:00:00 AM EST MEDENT ([facility]) Outpatient Attender: SIOBHAN GONZALES NP [facility] anat 10/11/2019 04:30:00 AM EST - 10/11/2019 04:30:00 AM EST [facility] ([facility]) Attender: SIOBHAN GONZALES NP 10/11/2019 12:00:00 AM EST [facility] ([facility]) Brief Individual Psychotherapy - 30 min Attender: Bernice regalado [facility] 10/09/2019 04:45:00 AM EST - 10/09/2019 04:45:00 AM EST [facility] ([facility]) Attender: Bernice Calvo 10/09/2019 12:00:00 AM EST [facility] ([facility]) Attender: Bernice Calvo 10/09/2019 12:00:00 AM EST [facility] ([facility]) Extended Individual Psychotherapy - 45 min Attender: Bernice Calvo [facility] 09/26/2019 04:45:00 AM EST - 09/26/2019 04:45:00 AM EST [facility] ([facility]) Outpatient Attender: SIOBHAN GONZALES NP [facility] Yoandy coppola 09/21/2019 04:30:00 AM EST - 09/21/2019 04:30:00 AM EST [facility] ([facility]) Attender: SIOBHAN GONZALES NP 09/21/2019 12:00:00 AM EST [facility] ([facility]) Extended Individual Psychotherapy - 45 min Att[facility]: [facility] 09/11/2019 05:00:00 AM EST - 09/11/2019 05:00:00 AM EST [facility] ([facility]) Attender: Bernice Calvo 09/11/2019 12:00:00 AM EST [facility] ([facility]) Outpatient Attender: SIOBHAN GONZALES NP [facility] Yoandy coppola 08/30/2019 04:00:00 AM EST - 08/30/2019 04:00:00 AM EST [facility] ([facility]) Attender: SIOBHAN GONZALES NP 08/30/2019 12:00:00 AM EST [facility] ([facility]) Attender: Bernice Calvo 08/29/2019 12:00:00 AM EST [facility] ([facility]) Extended Individual Psychotherapy - 45 min Attender: Bernice Calvo [facility] 08/28/2019 05:00:00 AM EST - 08/28/2019 05:00:00 AM EST [facility] ([facility]) [facility] [address] [facility] [place] [address] 08/24/2019 12:00:00 AM EST eCW1 ([facility]) Functional Status Medications Medication Brand Name Start [...] AM EST 50 mg by mouth completed [id number] trazodone by mouth [id number] 09/16/2020 12/15/2020 every evening 30 50 mg tablet 43313 [id number] [id number] Viv Gillespie [id number] Psychiatric/Mental Health [facility] ([facility]) 3 mg 09/15/2020 12:00:00 AM EST capsule [...] TABLET DAILY FOR 6 DAYS SOLD: 09/05/2020 [facility] Vraylar Vraylar 09/05/2020 12:00:00 AM EST 3 mg by mouth completed [id number] Vraylar by mouth [id number] 09/05/2020 once a day 3 mg capsule 92039 355985 [id number] Viv Gillespie [id number] [facility]) Fluconazole 150 MG Oral Tablet [Diflucan] Diflucan 150 MG Di flucan 150 MG 09/05/2020 12:00:00 AM EST active Diflucan 150 MG eCW1 ([facility]) Amoxicillin 250 MG Oral Capsule Amoxicillin 250 MG 09/05/2020 12:00 :00 AM EST 1.0 {capsule} active Amoxicillin 250 MG eCW1 ([facility]) Amoxicillin 250 MG Oral Capsule Amoxicillin 250 MG 09/05/2020 12:00 :00 AM EST 1.0 {capsule} active Amoxicillin 250 MG eCW1 ([facility]) Fluconazole 150 MG Oral Tablet [Diflucan] Diflucan 150 MG Di flucan 150 MG 09/05/2020 12:00:00 AM EST active Diflucan 150 MG eCW1 ([facility]) Fluconazole 150 MG Oral Tablet [Diflucan] Diflucan 150 MG Di flucan 150 MG 09/05/2020 12:00:00 AM EST active Diflucan 150 MG eCW1 ([facility]) 250 mg 09/05/2020 12:00:00 AM EST capsule 40 TAKE ONE CAPSULE BY MOUTH FOUR TIMES A DAY TAKE ONE CAPSULE BY MOUTH FOUR TIMES A DAY SOLD: 09/05/2020 [facility] Amoxicillin 250 MG Oral Capsule Amoxicillin 250 MG 09/05/2020 12:00 :00 AM EST 1.0 {capsule} active Amoxicillin 250 MG eCW1 ([facility]) 300 mg 09/05/2020 12:00:00 AM EST capsule [...] AM EST active Differin 0.1 % eCW1 ([facility]) adapalene 0.001 MG/MG Topical Gel [Differin] Differin 0.1 % Differin 0.1 % 08/27/2020 12:00:00 AM EST active Differin 0.1 % eCW1 ([facility]) adapalene 0.001 MG/MG Topical Gel [Differin] Differin 0.1 % Differin 0.1 % 08/27/2020 12:00:00 AM EST active Differin 0.1 % eCW1 ([facility]) adapalene 0.001 MG/MG Topical Gel [Differin] Differin 0.1 % Differin 0.1 % 08/27/2020 12:00:00 AM EST active Differin 0.1 % eCW1 ([facility]) [facility] 91 Day Pack 0.15 mg-30 mcg [...] EVERY DAY SOLD: 07/19/2020 [facility] Nystatin 822120 UNT/ML Topical Cream 100,000 unit/gram NYSTA TIN 06/25/2020 12:00:00 AM EST cream 60 APPLY TWO TIMES A DAY NEEDED TO AFFECTED AREA GROIN AND VULVA APPLY TWO TIMES A DAY NEEDED TO AFFEC KATJA AREA GROIN AND VULVA SOLD: 08/28/2020 [facility] Fluconazole 150 MG Oral Tablet Fluconazole 06/25/2020 12:00:00 AM EST ORAL active MEDENT ([facility]) Nystatin 246246 UNT/ML Topical Cream Nystatin 06/25/2020 12:00:00 AM EST active 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) 150 mg 06/25/2020 12:00:00 AM EST tablet 2 TAKE 1 TABLET BY MOUTH NOW AND 1 TOMORROW TAKE 1 TABLET BY MOUTH NOW AND 1 TOMORROW SOLD: 07/27/2020 [facility] Nystatin 464472 UNT/ML Topical Cream 100,000 unit/gram NYSTA TIN [...] 1 TOMORROW SOLD: 06/25/2020 [facility] Nystatin 912060 UNT/ML Topical Cream 100,000 unit/gram NYSTA TIN [...] AM EDT 50 mg by mouth completed 828571 trazodone by mouth C382 88 03/13/2020 06/11/2020 every evening 30 50 mg tablet 36475 392559 [id number] Siobhan Gonzales [id number] [facility] 100 mg 03/13/2020 12:00:00 AM EDT tablet [...] AM EST 10 mg by mouth completed 805782 propranolol by [facility] [id number] 10/11/2019 01/09/2020 three times a day 30 10 mg tablet as [facility] 25532 [id number] Siobhan Gonzales [id number] Psychiatric/Mental Health [facility] ([facility]) Propranolol Hydrochloride 10 MG Oral Tablet propranolol 10/11/2019 12:00:00 AM EST 10 mg by mouth completed [id number] propranolol by [facility] [id number] 10/11/2019 01/09/2020 three times a day 30 10 mg tablet as [facility] 27157 [id number] Siobhan Gonzales [id number] Psychiatric/Mental Health [facility] ([facility]) 300 mg 09/22/2019 12:00:00 AM EST capsule [...] MOUTH EVERY DAY SOLD: 09/22/2019 [facility] [place] Carbonate 300 MG Oral Capsule lithium carbonate 12:00:00 AM EST 300 mg completed 220995 lithium carbonate 09/21/2019 once a day 300 mg capsule 76987 [id number] Viv Gillespie [id number] Psychiatric/Mental Health [facility] ([facility]) 100 mg 08/31/2019 12:00:00 AM EST tablet [...] MOUTH EVERY DAY SOLD: 09/03/2019 [facility] [place] Carbonate 150 MG Oral Capsule lithium carbonate 12:00:00 AM EST 150 mg completed 911035 lithium carbonate 08/30/2019 09/21/2019 once a day 150 mg capsule 99594 [id number] Anat Gonzales [id number] Psych[facility] ([facility]) [place] Carbonate 300 MG Oral Capsule lithium carbonate 12:00:00 AM EST 300 mg completed [id number] lithium carbonate 08/30/2019 once a day 300 mg capsule 03826 267714 [id number] Siobhan Gonzales [id number] Psychiatric/Mental Health [facility] ([facility]) [place] Carbonate 300 MG Oral Capsule lithium carbonate 12:00:00 AM EST 300 mg completed [id number] lithium carbonate 08/30/2019 09/21/2019 once a day 300 mg capsule 86587 712463 [id number] Anat Gonzales [id number] Psychiatric/Mental Health [facility] ([facility]) 50 mcg 06/30/2019 12:00:00 AM EST tablet 90 TAKE ONE TABLET BY MOUTH EVERY MORNING TAKE ONE TABLET BY MOUTH EVERY MORNING SOLD: 10/07/2019 [facility] Tretinoin 1 MG/ML Topical Cream tretinoin (RETIN-A) 0. 1 % cream tretinoin (RETIN-A) 0.1 % cream 11/28/2018 12:00:00 AM EDT active Acne vulgaris Apply to affected areas Q hs , Alternate QOD, if too d [facility] Acne vulgaris 0.3-30 mg-mcg 10/10/2018 12:00:00 AM EST tablet 84 TAKE ONE TABLET BY MOUTH EVERY DAY TAKE ONE TABLET BY MOUTH EVERY DAY SOLD: 09/22/2019 [facility] Insurance Providers Payer name Policy type / Coverage type Policy ID Covered libertarian ID Covered libertarian's relationship to salcedo Policy [place] Plan Information [place] P[place] 302/307 [id number] SP [id number] [place] PPO 302/307 [id number] SP [id number] EXCELLUS H [id number] Self [id number] [place] [id number] S [id number] [place] 306/806 [id number] SP [id number] SOURAV [id number] SP [id number] BS iFACETS Medigap Part B [id number] Self V [id number] BS iFACETS Medigap Part B [id number] Self V [id number] BS Of [place] [id number] Self [id number] EXCELLUS C [id number] Self [id number] [place] PPO 302/307 [id number] SP [id number] [place] PPO 302/307 [id number] SP [id number] [place] PPO 302/307 [id number] SP [id number] [place] PPO 302/307 [id number] SP [id number] [facility] [id number] SP [id number] MEDICAID [id number] SP [id number] [place] PPO 302/307 [id number] SP [id number] [facility] [id number] SP [id number] [facility] [id number] SP [id number] MEDICAID [id number] SP [id number] MEDICAID [id number] SP [id number] BCBS OF [place] 380/[id number] HMO BLUE [id number] HMO BLUE [id number] FA [id number] ANSI-Commercial [id number] ANSI-Commercial [id number] ANSI-Commercial [id number] ANSI-Commercial [id number] ANSI-Commercial [id number] ANSI-Commercial [id number] EXCELLUS H [id number] EXCELLUS H [id number] Self [id number] EXCELLUS H [id number] Self [id number] [facility] I [id number] Self [id number] [facility] P [id number] S [id number] MEDICAID M [id number] Self [id number] EXCELLUS BCBS S [id number] S [id number] [id number] EXCELLUS H [id number] Self [id number] SELF PAY [facility]NAVAILABLE [facility] [id number] SP [id number] BCBS [place] O [id number] S [id number] MEDICAID W [id number] S [id number] [facility] MEDICARE COMPLET O [id number] S [id number] PCP [facility] COMMUNITY [address] O [id number] S [id number] Problems, Conditions, and Diagnoses Code Display Name Description Problem Type Effective Dates Data Source(s) F50.8 Other eating disorders Binge-Eating Disorder Condition 10/01/2020 12:00:00 AM EST [facility] ([facility]) F41.1 Generalized anxiety disorder Generalized Anxiety Disor mindy Condition 10/01/2020 12:00:00 AM EST [facility] ([facility]) 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 Body Dysmorphic Disorder Cond ition 07/23/2020 12:00:00 AM EST [facility] ([facility]) F42.2 Mixed obsessional thoughts and acts Obsessive-Co mpulsive Disorder Condition 07/23/2020 12:00:00 AM EST [facility] ([facility]) M05.79 Rheumatoid arthritis with rh eumatoid factor of multiple sites without organ or systems involvement Rheumatoid arthritis with rheumatoid fac tor of multiple sites without organ or systems involvement Diagnosis 01:41:58 PM [facility] Surgeries/Procedures Procedure Description Date Indications Data Source(s) Extended Individual Psychotherapy - 45 min 10/01/2020 12:00:00 AM EST - 10/01/2020 12:00:00 AM EST [facility] ([facility]) Extended Individual Psychotherapy - 45 min 12:00:00 AM EST [facility] ([facility] Telemed E/M Lvl 3--Est pt 09/05/2020 12:00:00 AM EST - 09/05/2020 12:00:00 AM EST [facility] ([facility]) Telemed A/O 30" 09/05/2020 12:00:00 AM EST [facility] ([facility] Telemed E/M Lvl 3--Est pt 09/05/2020 12:00:[address] [facility] ([facility]) Extended Individual Psychotherapy - 45 min 08/19/2020 12:00:00 AM EST - 08/19/2020 12:00:00 AM EST [facility] ([facility] Extended Individual Psychotherapy - 45 min 0 12:00:00 AM EST [facility] ([facility]) Extended Individual Psychotherapy - 45 min 08/09/2020 12:00:00 AM EST - 08/09/2020 12:00:00 AM EST [facility] ([facility]) Extended Individual Psychotherapy - 45 min 0 12:00:00 AM EST [facility] ([facility]) OFFICE OUTPATIENT VISIT 15 MINUTES 08/08 12:00:00 AM EST - 08/08/2020 12:00:00 AM EST [facility] ([facility]) Psychotherapy ADD ON - 30 Minutes 08/08/2020 12:00:00 AM EST [facility] ([facility]) OFFICE OUTPATIENT VISIT 15 MINUTES 08/08/2020 12:00:00 AM EST [facility] ([facility]) MHC Telemed E/M Lvl 3--Est pt 07/23/2020 12:00:00 AM EST - 07/23/2020 12:00:00 AM EST [facility] ([facility]) Telemed A/O 45" 07/23/2020 12:00:00 AM EST [facility] ([facility]) MHC Telemed E/M Lvl 3--Est pt 07/23/2020 12:00:[address] [facility] ([facility]) Extended Individual Psychotherapy - 45 min 06/25/2020 12:00:00 AM EST - 06/25/2020 12:00:00 AM EST [facility] ([facility]) Extended Individual Psychotherapy - 45 min 0 12:00:00 AM EST [facility] ([facility]) Extended Individual Psychotherapy - 45 min 06/03/2020 12:00:00 AM EDT - 06/03/2020 12:00:00 AM EDT [facility] ([facility]) Extended Individual Psychotherapy - 45 min 0 12:00:00 AM EDT [facility] ([facility]) Extended Individual Psychotherapy - 45 min 05/22/2020 12:00:00 AM EDT - 05/22/2020 12:00:00 AM EDT [facility] ([facility]) Extended Individual Psychotherapy - 45 min 0 12:00:00 AM EDT [facility] ([facility]) Extended Individual Psychotherapy - 45 min 05/17/2020 12:00:00 AM EDT - 05/17/2020 12:00:00 AM EDT [facility] ([facility]) Extended Individual Psychotherapy - 45 min 0 12:00:00 AM EDT [facility] ([facility]) MHC Telemed E/M Lvl 3--Est pt 05/16/2020 12:00:00 AM EDT - 05/16/2020 12:00:00 AM EDT [facility] ([facility]) MHC Telemed E/M Lvl 3--Est pt 05/16/2020 12:00:00 AM E DT [facility] ([facility]) MHC Telemed E/M Lvl 3--Est pt 05/02/2020 12:00:00 AM EDT - 05/02/2020 12:00:00 AM EDT [facility] ([facility]) MHC Telemed E/M Lvl 3--Est pt 05/02/2020 12:00:00 AM E DT [facility] ([facility]) MHC Telemed E/M Lvl 3--Est pt 01/31/2020 12:00:00 AM EDT - 01/31/2020 12:00:00 AM EDT [facility] ([facility]) MHC Telemed E/M Lvl 3--Est pt 01/31/2020 12:00:00 AM E DT [facility] ([facility]) MHC Telemed E/M Lvl 3--Est pt 01/03/2020 12:00:00 AM EDT - 01/03/2020 12:00:00 AM EDT [facility] ([facility]) MHC Telemed E/M Lvl 3--Est pt 01/03/2020 12:00:00 AM E DT [facility] ([facility]) MHC Telemed E/M Lvl 3--Est pt 11/16/2019 12:00:00 AM EDT - 11/16/2019 12:00:00 AM EDT [facility] ([facility]) MHC Telemed E/M Lvl 3--Est pt 11/16/2019 12:00:00 AM E DT [facility] ([facility]) Extended Individual Psychotherapy - 45 min 11/10/2019 12:00:00 AM EDT - 11/10/2019 12:00:00 AM EDT [facility] ([facility]) Extended Individual Psychotherapy - 45 min 0 12:00:00 AM EDT [facility] ([facility]) Extended Individual Psychotherapy - 45 min 10/20/2019 12:00:00 AM EST - 10/20/2019 12:00:00 AM EST [facility] ([facility]) Extended Individual Psychotherapy - 45 min 0 12:00:00 AM EST [facility] ([facility]) OFFICE OUTPATIENT VISIT 15 MINUTES 10/11 12:00:00 AM EST - 10/11/2019 12:00:00 AM EST [facility] ([facility]) OFFICE OUTPATIENT VISIT 15 MINUTES 10/11/2019 12:00:00 AM EST [facility] ([facility]) Brief Individual Psychotherapy - 30 min 10/09/2019 12:00:00 AM EST - 10/09/2019 12:00:00 AM EST [facility] ([facility]) Brief Individual Psychotherapy - 30 min 10/09/2019 12: 00:00 AM EST [facility] ([facility]) Extended Individual Psychotherapy - 45 min 10/09/2019 12:00:00 AM EST - 10/09/2019 12:00:00 AM EST [facility] ([facility]) Extended Individual Psychotherapy - 45 min 0 12:00:00 AM EST [facility] ([facility]) OFFICE OUTPATIENT VISIT 15 MINUTES 09/21 12:00:00 AM EST - 09/21/2019 12:00:00 AM EST [facility] ([facility]) OFFICE OUTPATIENT VISIT 15 MINUTES 09/21/2019 12:00:00 AM EST [facility] ([facility]) Extended Individual Psychotherapy - 45 min 09/11/2019 12:00:00 AM EST - 09/11/2019 12:00:00 AM EST [facility] ([facility]) Extended Individual Psychotherapy - 45 min 0 12:00:00 AM EST [facility] ([facility]) OFFICE OUTPATIENT VISIT 15 MINUTES 08/30 12:00:00 AM EST - 08/30/2019 12:00:00 AM EST [facility] ([facility]) OFFICE OUTPATIENT VISIT 15 MINUTES 08/30/2019 12:00:00 AM EST [facility] ([facility]) Extended Individual Psychotherapy - 45 min 08/29/2019 12:00:00 AM EST - 08/29/2019 12:00:00 AM EST [facility] ([facility]) Extended Individual Psychotherapy - 45 min 0 12:00:00 AM EST [facility] ([facility]) Influenza immunization was not administe red for reasons documented by clinician (e.g., patient allergy or other medical reasons, patient declined or other patient reasons, vaccine not available or other system reasons) 08/24/2019 12:00:00 AM EST eCW1 ([facility]) Results ID Date Data Source [id number] 09/23/2020 12:00:00 AM EST [facility] Name Value Range Interpretation Code Description Data Zoraida rce(s) Supporting Document(s) SARS-CoV2 Rapid Antigen Negative [facility] This lab was ordered by [facility] and reported by [facility]. ID Date Data Source [id number] 06/25/2020 12:00:00 PM EST [facility] ([facility]) Name Value Range Interpretation Code Description Data Zoraida rce(s) Supporting Document(s) CT/NG Laboratory test result [facility] ([facility]) CHLAMYDIA TRACHOMATIS: Negative NEISSERIA GONORRHOEAE: Negative Testing performed by the FDA-approved Hologic APTIMA COMBO 2 Assay. The APTIMA COMBO [...] CT/NG Laboratory test result [facility] ([facility]) ID Date Data Source [id number] 04/10/2020 12:00:00 PM [facility]T [facility] Name Value Range Interpretation Code Description Data Zoraida rce(s) Supporting Document(s) TP Reflex HPV ASCUS Laboratory test result [facility] ([facility]) TP Reflex HPV ASCUS Laboratory test result [facility] ([facility]) SPECIMEN PART------ A. Cervical, Endocervical, ThinPrep Pap (Cloth Beamer) CYTOLOGY HX-------- Date of Last Menstrual Period: 03/26/20 Other Information:Previous Pap: 10/13/19 HPV Positive Oral Contraceptives FINAL DIAGNOSIS---- INTERPRETATION: Negative for Intraepithelial Lesion or Malignancy. SPECIMEN ADEQUACY:Satisfactory for evaluation. Endocervical/transformation zone component present. ID Date Data Source [id number] 03/19/2020 01:29:32 PM EDT [facility] Name Value Range Interpretation Code Description Data Zoraida rce(s) Supporting Document(s) Progress Note [facility] [id number] [file] [id number]= ID Date Data Source [id number] 03/06/2020 12:00:00 PM EDT [facility] ([facility]) Name Value Range Interpretation Code Description Data Zoraida rce(s) Supporting Document(s) CT/NG Laboratory test result [facility] ([facility]) CHLAMYDIA TRACHOMATIS: Negative NEISSERIA GONORRHOEAE: Negative Testing performed by the FDA-approved Curiogic APTIMA COMBO 2 Assay. The APTIMA COMBO [...] of age. CT/NG Laboratory test result [facility] ([facility]) ID Date Data Source [id number] 10/13/2019 12:00:00 PM EST [facility]) Name Value Range Interpretation Code Description Data Zoraida rce(s) Supporting Document(s) HPV Laboratory test result Abnormal (applies to non -numeric results) [facility] ([facility]) HR-HPV: Positive Test performed by the FDA-approved Curiogic (Gen-Probe) APTIMA HPV test, which detects HPV genotypes: 16, 18, 31, 33, 35, 39, 45, 51, 52, 56, 58, 59, 66, and 68. TP Reflex HPV ASCUS Laboratory test result [facility] ([facility]) ID Date Data Source [id number] 10/13/2019 12:00:00 PM EST [facility] ([facility]) Name Value Range Interpretation Code Description Data Zoraida rce(s) Supporting Document(s) Cytology report of Cervical or vaginal smear or scrapi ng Cyto stain.thin prep Laboratory test result Abnormal (applies to non-numeric results) [facility] ([facility]) SPECIMEN PART------ A. Cervical, Endocervical, ThinPrep Pap (Cloth Beamer) CYTOLOGY HX-------- Date of Last Menstrual Period: 09/01/19 Other Information:Previous Normal Pap: 05/23/19 Oral Contraceptives FINAL DIAGNOSIS---- GENERAL CATEGORY: Abnormal INTERPRETATION: Atypical Squamous Cells Of Undetermined Significance (ASC-US). SPECIMEN ADEQUACY:Satisfactory for evaluation. Endocervical/transformation zone component present. ID Date Data Source VITAMIN [id number] LEVEL 08/24/2019 12:00:00 AM EST eCW1 ([facility]) Name Value Range Interpretation Code Description Data Zoraida e(s) Supporting Document(s) [id number] VITAMIN B12 LEVEL [facility] ([facility]) ID Date Data Source TSH 08/24/2019 12:00:00 AM EST W1 ([facility]) Name Value Range Interpretation Code Description Data Zoraida rce(s) Supporting Document(s) 1.340 0.358-3.740 THYROID STIMULATING HORM ONE eCW1 ([facility]) ID Date Data Source RHEUMATOID FACTOR QUANT 08/24/2019 12:00:00 AM EST eCW1 ([facility]) Name Value Range Interpretation Code Description Data Zoraida rce(s) Supporting Document(s) 53.9 <15.0 RHEUMATOID FACTOR QUANT eCW1 ( [facility]) ID Date Data Source Comprehensive Metabolic Profile (CMP) 08/24/2019 12:00:00 AM EST eCW1 ([facility]) Name Value Range Interpretation Code Description Data Zoraida rce(s) Supporting Document(s) 9 7-18 BLOOD UREA NITROGEN eCW1 ([facility]) 75 70-100 GLUCOSE, FASTING eCW1 ([facility]) 0.73 0.55-1.30 CREATININE FOR GFR eCW1 ([facility]) 4.4 3.5-5.1 POTASSIUM SERUM [facility] 142 136-145 SODIUM LEVEL eCW1 ([facility]) > 60.0 >60 GLOMERULAR FILTRATION RATE eCW 1 ([facility]) 109 98-107 CHLORIDE LEVEL eCW1 ([facility]) 9.1 8.5-10.1 CALCIUM LEVEL eCW1 ([facility]) 27 21-32 CARBON DIOXIDE LEVEL eCW1 ([facility]) 11 7-37 AST/SGOT eCW1 ([facility]) 16 12-78 ALT/SGPT eCW1 ([facility]) 65 45-117 ALKALINE PHOSPHATASE eCW1 ([facility]) 3.8 3.2-5.2 ALBUMIN eCW1 ([facility]) 7.5 6.4-8.2 TOTAL PROTEIN eCW1 ([facility]) 0.4 0.2-1.0 BILIRUBIN,TOTAL eCW1 ([facility] 1.03 1.00-1.93 ALBUMIN/GLOBULIN RATIO eCW1 ([facility]) Procedure Social History Code Duration Value Status Description Data Source(s ) Smoking 10/01/2020 12:00:00 AM EST Unknown if ever smoked comp leted Unknown if ever smoked [facility] ([facility]) Smoking 09/07/2020 12:00:00 AM EST Never Smoker completed Never S moker eCW1 ([facility]) Smoking 09/07/2020 12:00:00 AM EST Never Smoker completed Never S moker eCW1 ([facility]) Smoking 09/05/2020 12:00:00 AM EST Never Smoker completed Never S moker eCW1 ([facility]) Smoking 09/05/2020 12:00:00 AM EST Unknown if ever smoked comp leted Unknown if ever smoked [facility] ([facility]) Smoking 08/27/2020 12:00:00 AM EST Never Smoker completed Never Juan romeo eCW1 ([facility]) Smoking 08/19/2020 12:00:00 AM EST Unknown if ever smoked comp leted Unknown if ever smoked [facility] ([facility]) Smoking 08/09/2020 12:00:00 AM EST Unknown if ever smoked comp leted Unknown if ever smoked [facility] ([facility]) Smoking 08/08/2020 12:00:00 AM EST Unknown if ever smoked comp leted Unknown if ever smoked [facility] ([facility]) Smoking 07/23/2020 12:00:00 AM EST Unknown if ever smoked comp leted Unknown if ever smoked [facility] ([facility]) Smoking 07/15/2020 12:00:00 AM EST Never Smoker completed Never uJan romeo eCW1 ([facility]) Smoking 06/25/2020 12:00:00 AM EST Non-smoker, Non-drink er, Non-drug User completed Non-smoker, Non-drinker, Non-drug User [facility] ([facility]) Smoking 06/25/2020 12:00:00 AM EST Unknown if ever smoked comp leted Unknown if ever smoked [facility] ([facility]) Smoking 06/03/2020 12:00:00 AM EDT Unknown if ever smoked comp leted Unknown if ever smoked [facility] ([facility]) Smoking 05/22/2020 12:00:00 AM EDT Unknown if ever smoked comp leted Unknown if ever smoked [facility] ([facility]) Smoking 05/17/2020 12:00:00 AM EDT Unknown if ever smoked comp leted Unknown if ever smoked [facility] ([facility]) Smoking 05/16/2020 12:00:00 AM EDT Unknown if ever smoked comp leted Unknown if ever smoked [facility] ([facility]) Smoking 05/02/2020 12:00:00 AM EDT Unknown if ever smoked comp leted Unknown if ever smoked [facility] ([facility]) Smoking 01/31/2020 12:00:00 AM EDT Unknown if ever smoked comp leted Unknown if ever smoked [facility] ([facility]) Smoking 01/03/2020 12:00:00 AM EDT Unknown if ever smoked comp leted Unknown if ever smoked [facility] ([facility]) Smoking 11/16/2019 12:00:00 AM EDT Unknown if ever smoked comp leted Unknown if ever smoked [facility] ([facility]) Smoking 11/10/2019 12:00:00 AM EDT Unknown if ever smoked comp leted Unknown if ever smoked [facility] ([facility]) Smoking 10/20/2019 12:00:00 AM EST Unknown if ever smoked comp leted Unknown if ever smoked [facility] ([facility]) Smoking 10/11/2019 12:00:00 AM EST Unknown if ever smoked comp leted Unknown if ever smoked [facility] ([facility]) Smoking 10/09/2019 12:00:00 AM EST Unknown if ever smoked comp leted Unknown if ever smoked [facility] ([facility]) Smoking 09/21/2019 12:00:00 AM EST Unknown if ever smoked comp leted Unknown if ever smoked [facility] ([facility]) Smoking 09/11/2019 12:00:00 AM EST Unknown if ever smoked comp leted Unknown if ever smoked [facility] ([facility]) Smoking 08/30/2019 12:00:00 AM EST Unknown if ever smoked comp leted Unknown if ever smoked [facility] ([facility]) Smoking 08/29/2019 12:00:00 AM EST Unknown if ever smoked comp leted Unknown if ever smoked [facility] ([facility]) Smoking 08/24/2019 12:00:00 AM EST Never Smoker completed Never S moker eCW1 ([facility]) Smoking 08/24/2019 12:00:00 AM EST Never Smoker completed Never S moker eCW1 ([facility]) Smoking 08/24/2019 12:00:00 AM EST Never Smoker completed Never S moker eCW1 ([facility]) Vital Signs ID Date Data Source UNK Name Value Range Interpretation Code Description Data Source(s) Diastolic blood pressure 90 mm[Hg] 90 mm[Hg] eCW1 ([facility]) Systolic blood pressure 136 mm[Hg] 136 mm[Hg] e CW1 ([facility]) Body temperature 98.2 [degF] 98.2 [degF] eCW1 ( [facility]) Respiratory rate 18 /min 18 /min eCW1 ([facility]) Heart rate 84 /min 84 /min eCW1 [facility] Body mass index (BMI) [Ratio] 25.98 kg/m2 25.98 kg/m2 eCW1 ([facility]) Body height 67.5 [in_i] 67.5 [in_i] eCW1 ([facility]) Body weight 168.4 [lb_av] 168.4 [lb_av] eCW1 ([facility]) Diastolic blood pressure 0 mm[Hg] Normal (applies to non-numeric results) 0 mm[Hg] [facility] ([facility]) Systolic blood pressure 0 mm[Hg] Normal (applies t o non-numeric results) 0 mm[Hg] [facility] ([facility]) Body mass index (BMI) [Ratio] 0.00 kg/m2 No rmal (applies to non-numeric results) 0.00 kg/m2 [facility] ([facility]) Body weight Measured 0.00 lbs Normal (applies to n on-numeric results) 0.00 lbs [facility] ([facility]) Body height 0.00 in Normal (applies to non-numeric resu lts) 0.00 in [facility] ([facility]) Diastolic blood pressure 68 mm[Hg] 68 mm[Hg] eCW1 ([facility]) Systolic blood pressure 110 mm[Hg] 110 mm[Hg] e CW1 ([facility]) Body temperature 97.8 [degF] 97.8 [degF] eCW1 ( [facility]) Respiratory rate 18 /min 18 /min eCW1 ([facility]) Heart rate 100 /min 100 /min eCW1 [facility] Body mass index (BMI) [Ratio] 26.38 kg/m2 26.38 kg/m2 eCW1 ([facility]) Body height 67.5 [in_i] 67.5 [in_i] eCW1 ([facility]) Body weight 171 [lb_av] 171 [lb_av] eCW1 ([facility]) Diastolic blood pressure 0 mm[Hg] Normal (applies to non-numeric results) 0 mm[Hg] [facility] ([facility]) Systolic blood pressure 0 mm[Hg] Normal (applies t o non-numeric results) 0 mm[Hg] [facility] ([facility]) Body mass index (BMI) [Ratio] 0.00 kg/m2 No rmal (applies to non-numeric results) 0.00 kg/m2 [facility] ([facility]) Body weight Measured 0.00 lbs Normal (applies to n on-numeric results) [facility] [facility] Body height 0.00 in Normal (applies to non-numeric resu lts) 0.00 in [facility] ([facility]) Diastolic blood pressure 0 mm[Hg] Normal (applies to non-numeric results) 0 mm[Hg] [facility] ([facility]) Systolic blood pressure 0 mm[Hg] Normal (applies t o non-numeric results) 0 mm[Hg] [facility] ([facility]) Body mass index (BMI) [Ratio] 0.00 kg/m2 No rmal (applies to non-numeric results) 0.00 kg/m2 [facility] ([facility]) Body weight Measured 0.00 lbs Normal (applies to n on-numeric results) [facility].[address] [facility]) Body height 0.00 in Normal (applies to non-numeric resu lts) 0.00 in [facility] ([facility]) Diastolic blood pressure 0 mm[Hg] Normal (applies to non-numeric results) 0 mm[Hg] [facility] ([facility]) Systolic blood pressure 0 mm[Hg] Normal (applies t o non-numeric results) 0 mm[Hg] [facility] ([facility]) Body mass index (BMI) [Ratio] 0.00 kg/m2 No rmal (applies to non-numeric results) 0.00 kg/m2 [facility] ([facility]) Body weight Measured 0.00 lbs Normal (applies to n on-numeric results) 0.00 lbs [facility] ([facility]) Body height 0.00 in Normal (applies to non-numeric resu lts) 0.00 in [facility] ([facility]) Diastolic blood pressure 0 mm[Hg] Normal (applies to non-numeric results) 0 mm[Hg] [facility] ([facility]) Systolic blood pressure 0 mm[Hg] Normal (applies t o non-numeric results) 0 mm[Hg] [facility] ([facility]) Body mass index (BMI) [Ratio] 0.00 kg/m2 No rmal (applies to non-numeric results) 0.00 kg/m2 [facility] Body weight Measured 0.00 lbs Normal (applies to n on-numeric results) 0.00 lbs [facility] ([facility]) Body height 0.00 in Normal (applies to non-numeric resu lts) 0.00 in [facility] Body surface area Derived from formula 1.89 m2 1.89 m2 [facility] ([facility]) Body mass index (BMI) [Ratio] 26.1 kg/m2 26.1 k g/m2 [facility] ([facility]) Body weight 169.00 [lb_av] 169.00 [lb_av] MEDEN T ([facility]) Body height 67.5 [in_i] 67.5 [in_i] [facility] ([facility]il[facility]) 5'7.50" Diastolic blood pressure 64 mm[Hg] 64 mm[Hg] [facility] ([facility]) Systolic blood pressure 100 mm[Hg] 100 mm[Hg] M EDENT ([facility]) Body surface area 1.89 m2 1.89 m2 [facility] ([facility]) Diastolic blood pressure 0 mm[Hg] Normal (applies to non-numeric results) 0 mm[Hg] [facility] ([facility]) Systolic blood pressure 0 mm[Hg] Normal (applies t o non-numeric results) 0 mm[Hg] [facility] ([facility]) Body mass index (BMI) [Ratio] 0.00 kg/m2 No rmal (applies to non-numeric results) 0.00 kg/m2 [facility] ([facility]) Body weight Measured 171.00 lbs Normal (applies to n on-numeric results) 171.00 lbs [facility] ([facility]) Body height 0.00 in Normal (applies to non-numeric resu lts) 0.00 in [facility] ([facility]) Systolic blood pressure 0 mm[Hg] Normal (applies t o non-numeric results) 0 mm[Hg] [facility] ([facility]) Body mass index (BMI) [Ratio] 0.00 kg/m2 No rmal (applies to non-numeric results) 0.00 kg/m2 [facility] ([facility]) Body weight Measured 0.00 lbs Normal (applies to n on-numeric results) 0.00 lbs [facility]) Body height 0.00 in Normal (applies to non-numeric resu lts) 0.00 in [facility] ([facility]) Diastolic blood pressure 0 mm[Hg] Normal (applies to non-numeric results) 0 mm[Hg] [facility] ([facility]) Diastolic blood pressure 0 mm[Hg] Normal (applies to non-numeric results) 0 mm[Hg] [facility]) Systolic blood pressure 0 mm[Hg] Normal (applies t o non-numeric results) 0 mm[Hg] [facility] ([facility]) Body mass index (BMI) [Ratio] 0.00 kg/m2 No rmal (applies to non-numeric results) 0.00 kg/m2 [facility] ([facility]) Body weight Measured 0.00 lbs Normal (applies to n on-numeric results) 0.00 lbs [facility] ([facility]) Body height 0.00 in Normal (applies to non-numeric resu lts) 0.00 in [facility] ([facility]) Diastolic blood pressure 78 mm[Hg] 78 mm[Hg] eCW1 ([facility]) Systolic blood pressure 122 mm[Hg] 122 mm[Hg] e CW1 ([facility]) Body temperature 98.9 [degF] 98.9 [degF] eCW1 ( [facility]) Respiratory rate 18 /min 18 /min eCW1 ([facility]) Heart rate 114 /min 114 /min eCW[facility] Body mass index (BMI) [Ratio] 25.92 kg/m2 25.92 kg/m2 eCW1 ([facility]) Body height 67.5 [in_us] 67.5 [in_us] eCW1 ([facility]) Body weight Measured 168 [lb_av] 168 [lb_av] eC W1 ([facility]) Patient Treatment Plan of Care Planned Activity Planned Date Details Description Data Source (s) Amoxicillin 250 MG Oral Capsule 09/05/2020 12:00:00 AM EST eCW1 ([facility]) Fluconazole 150 MG Oral Tablet [Diflucan] 09/05/2020 12:00:00 AM ES T eCW1 ([facility]) Amoxicillin 250 MG Oral Capsule 09/05/2020 12:00:00 AM EST eCW1 ([facility]) Fluconazole 150 MG Oral Tablet [Diflucan] 09/05/2020 12:00:00 AM ES T eCW1 ([facility]) Amoxicillin 250 MG Oral Capsule 09/05/2020 12:00:00 AM EST eCW1 ([facility]) Fluconazole 150 MG Oral Tablet [Diflucan] 09/05/2020 12:00:00 AM ES T eCW1 ([facility]) adapalene 0.001 MG/MG Topical Gel [Differin] 08/27/2020 12:00:00 AM EST eCW1 ([facility]) Tretinoin 1 MG/ML Topical Cream 11/28/2018 12:00:00 AM [facility]
[2020-10-10] MEDS: LITHIUM CARBONATE 300 MG CAP PO SCH ×3 (00:29→20:46)
[2020-10-10] MEDS: traZODone 50 MG TAB PO SCH ×2 (00:30→20:47)
[2020-10-10] MEDS: ACETAMINOPHEN TAB 650MG DOSE (2X325MG) PO PRN (00:30)
[2020-10-10 04:27] VITALS: BP 110/64
[2020-10-10] MEDS: LEVOTHYROXINE 50MCG TABLET (0.05MG) PO SCH (06:08)
[2020-10-10] MEDS: CARIPRAZINE 3MG CAPSULE (VRAYLAR) PO SCH (08:36)
[2020-10-10] MEDS: SERTRALINE 100 MG TAB PO SCH (08:36)
--- NOTE | 2020-10-10 09:34 | HPE ---
HISTORY AND PHYSICAL DATE OF ADMISSION: 10/09/2020 PRIMARY CARE PROVIDER: Jada Vigil R.N., A.NMarjorieP. at the [facility]. She just was seen there for annual wellness exam on 08/27/2020. PAST MEDICAL HISTORY: 1. Rheumatoid arthritis, follows with Dr. Velásquez at [facility]. 2. Hypothyroidism. 3. History of mood disorder. 4. Mild asthma. 5. Allergic rhinitis. PAST SURGICAL HISTORY: 1. Tonsillectomy in 2008. 2. [place] teeth extraction 2009. FAMILY HISTORY: Father has hypertension, kidney stones, and hyperlipidemia. Mother has alcohol abuse problems. HOME MEDICATIONS: 1. [place] 300 mg in the morning. 2. [place] 600 mg in the evening. 3. Zoloft 100 mg daily. 4. Levothyroxine 50 mcg daily. 5. Tramadol 50 mg daily. 6. Colace as needed. 7. I think she also sees a chiropractor that has her on some nutritional things that he sells. PHYSICAL EXAMINATION: VITAL SIGNS: As listed. GENERAL APPEARANCE: Alert, conversant, no distress. LUNGS: Clear. ABDOMEN: Soft, nontender. EXTREMITIES: There is no peripheral edema. NECK: Thyroid not palpable. NEUROLOGICAL: Normal strength in arms and legs. JOINTS: No erythema or swelling in the joints. IMPRESSION: 1. Hypothyroidism. Continue levothyroxine 50 mcg daily. 2. History of depression. Continue current medicines as regulated by Psychiatry. 3. Rheumatoid arthritis. Not currently an acute medical problem. Hospitalist group is available if there are any medical problems that develop during her hospitalization.
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
[2020-10-10 19:11] VITALS: BP 133/71
[2020-10-11] MEDS: LEVOTHYROXINE 50MCG TABLET (0.05MG) PO SCH (06:14)
[2020-10-11 06:32] VITALS: BP 107/67
[2020-10-11] MEDS: CARIPRAZINE 3MG CAPSULE (VRAYLAR) PO SCH (09:03)
[2020-10-11] MEDS: LITHIUM CARBONATE 300 MG CAP PO SCH ×2 (09:03→20:07)
[2020-10-11] MEDS: SERTRALINE 100 MG TAB PO SCH (09:03)
--- NOTE | 2020-10-11 14:49 | MHIPNPDOC ---
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 Patient was under stress from difficulties with boyfriend . VITAL SIGNS: See below. NEW TEST RESULTS:, None. CURRENT MEDICATIONS: See below. MENTAL STATUS EXAMINATION: Patient is a 35-year old female, who is improved state today. Speech: Is normal. Language skills are intact. Thought processes including: Feeling more relaxed. Thought content: Difficulties with boyfriend. Abstract reasoning, and computation: Able to abstract. Description of associations:. No loose association. Description of abnormal or psychotic thoughts:. No psychotic thought. Judgment:, Poor judgment. Insight:, Good insight. Orientation: 3. Recent and remote memory: Intact. Attention span and concentration: Intact. Language:. No disturbance. Fund of knowledge: full. Mood: Euthymic. Affect:, Congruent. 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 3.. Relationship stressors. ASSESSMENT:. Patient is improved today with no need for immediate change in medication MANAGEMENT PLAN:. We'll continue to observe and discharged back to community clinic. TIME SPENT:, 35 minutes. Vital Signs Vital Signs Date Time Temp Pulse Resp B/P (MAP) Pulse Ox O2 Delivery O2 Flow Rate FiO2 10/11/20 06:32 98.7 82 14 107/67 (80) 98 Room Air Current Medications Current Medications Medications (Trade) Dose Ordered Sig/Judi Route PRN Reason Start Time Stop Time Status Last Admin Dose Admin Acetaminophen (Tylenol Tab) 650 mg Q6HP PRN PO HEADACHE or DISCOMFORT 10/09/20 21:00 10/10/20 00:30 Al Hydrox/Mg Hydrox/Simethicone (Mylanta) 30 ml Q4HP PRN PO HEARTBURN/INDIGESTION 10/09/20 21:00 Cariprazine (Vraylar) 3 mg DAILY PO 10/10/20 09:00 10/11/20 09:03 Home Med (Med Rec Complete!) ASDIRECTED XX 10/09/20 20:30 10/09/20 20:23 DC Levothyroxine Sodium (Synthroid) 50 mcg DAILY@0600 PO 10/10/20 06:00 10/11/20 06:14 [place] Carbonate ([place] Carbonate) 300 mg QAM PO 10/10/20 09:00 10/11/20 09:03 [place] Carbonate ([place] Carbonate) 600 mg QHS PO 10/09/20 21:00 10/10/20 20:46 Magnesium Hydroxide (Milk Of Magnesia) 30 ml DAILYPRN PRN PO CONSTIPATION 10/09/20 21:00 Olanzapine (ZyPREXA ZYDIS) 5 mg Q6HP PRN PO AGITATION/ ANXIETY 10/09/20 21:00 Sertraline HCl (Zoloft) 200 mg DAILY PO 10/10/20 09:00 10/11/20 09:03 Trazodone HCl (Desyrel) 100 mg QHS PO 10/09/20 21:00 10/10/20 20:47 Allergies Coded Allergies: Sulfa (Sulfonamide Antibiotics) (Verified Allergy, Unknown, 10/09/20) ANDIE STALLINGS MD Oct 11, 2020 14:49
[2020-10-11 16:12] VITALS: BP 117/71
[2020-10-11] MEDS: [UNRECOGNIZED DRUG - OTHER] PO SCH (20:06)
[2020-10-11] MEDS: traZODone 50 MG TAB PO SCH (20:07)
[2020-10-12] MEDS: ACETAMINOPHEN TAB 650MG DOSE (2X325MG) PO PRN (02:02)
[2020-10-12] MEDS: LEVOTHYROXINE 50MCG TABLET (0.05MG) PO SCH (05:56)
[2020-10-12 07:08] VITALS: BP 110/56
[2020-10-12] MEDS: LITHIUM CARBONATE 300 MG CAP PO SCH ×2 (08:29→20:41)
[2020-10-12] MEDS: CARIPRAZINE 3MG CAPSULE (VRAYLAR) PO SCH (08:29)
[2020-10-12] MEDS: SERTRALINE 100 MG TAB PO SCH (08:29)
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
[2020-10-12 16:10] VITALS: BP 124/73
[2020-10-12] MEDS: traZODone 50 MG TAB PO SCH (20:40)
[2020-10-12] MEDS: [UNRECOGNIZED DRUG - OTHER] PO SCH (20:41)
[2020-10-13] MEDS: LEVOTHYROXINE 50MCG TABLET (0.05MG) PO SCH (06:05)
[2020-10-13 06:24] VITALS: BP 120/58
[2020-10-13] MEDS: LITHIUM CARBONATE 300 MG CAP PO SCH ×2 (09:15→20:07)
[2020-10-13] MEDS: SERTRALINE 100 MG TAB PO SCH (09:15)
[2020-10-13] MEDS: CARIPRAZINE 3MG CAPSULE (VRAYLAR) PO SCH (09:15)
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
[2020-10-13 16:11] VITALS: BP 123/70
[2020-10-13] MEDS: [UNRECOGNIZED DRUG - OTHER] PO SCH (20:07)
[2020-10-13] MEDS: traZODone 50 MG TAB PO SCH (20:07)
[2020-10-14] MEDS: LEVOTHYROXINE 50MCG TABLET (0.05MG) PO SCH (06:05)
[2020-10-14] MEDS: CARIPRAZINE 3MG CAPSULE (VRAYLAR) PO SCH (08:39)
[2020-10-14] MEDS: LITHIUM CARBONATE 300 MG CAP PO SCH (08:39)
[2020-10-14] MEDS: SERTRALINE 100 MG TAB PO SCH (08:39)
--- NOTE | 2020-10-14 10:20 | MHDSPDOC ---
[facility] Discharge Summary Discharge Summary DATE OF ADMISSION: Oct 09, 2020 at 20:35 DATE OF DISCHARGE: 10/14/2020 DISCHARGE DIAGNOSES: 1. Bipolar disorder. 2.. Dependent personality disorder. REASON FOR ADMISSION:, Mood instability, depression, dysfunctional relationship CONSULTANTS INVOLVED: None TREATMENT AND PROGRESS ON THE UNIT :. Patient was discussed with outpatient nurse practitioner, and decision was made to not change any of her medications at this time. Patient improved in mood and supposedly in insight. 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 Speech is, normal. Language skills are. Normal. Thought processes including: No disturbance. Thought content: Focused on relationships and poor self-esteem. Abstract reasoning, and computation: Able to abstract and compute. Description of associations: No loose associations. Description of abnormal or psychotic thoughts:. No psychotic thought. Judgment: Fair Insight: Moderate. Orientation to 3. Recent and remote memory: Intact. Attention span and concentration:. Good. Language: No disturbance. Fund of knowledge:.full Mood: Good. Affect: Bright. MEDICATIONS ON DISCHARGE: -. Will continue home medications of Vraylar,[place] and sertraline as well as her thyroid treatment - No new medications prescribed PLAN/FOLLOWUP ARRANGEMENTS: Follow up at community clinic The amount of time spent in the coordination of care for this patient was approximately, 35 minutes. Vital Signs/I&Os Vital Signs Date Time Temp Pulse Resp B/P (MAP) Pulse Ox O2 Delivery O2 Flow Rate FiO2 10/13/20 16:11 98.4 70 16 123/70 (87) 97 Room Air Laboratory Data Microbiology Microbiology 10/09/20 Respiratory Virus Panel (PCR) ([facility]) - Final, Complete Medications Scheduled Cariprazine HCl (Vraylar) 3 Mg Capsule, 3 MG PO DAILY, (Reported) Levonorgestrel-Ethin Estradiol ([place] 0.15 mg-0.03 mg Tab) 1 Each Tbdspk.3mo, 1 TAB PO QHS, (Reported) Levothyroxine Sodium (Levothyroxine Sodium) 50 Mcg Tablet, 50 MCG PO DAILY, (Reported) [place] Carbonate ([place] Carbonate) 300 Mg Capsule, 300 MG PO QAM, (Reported) [place] Carbonate ([place] Carbonate) 300 Mg Tablet, 600 MG PO QHS, (Reported) Sertraline Hcl (Zoloft) 100 Mg Tablet, 200 MG PO DAILY, (Reported) Tramadol HCl (Tramadol HCl) 50 Mg Tablet, 50 MG PO DAILY, (Reported) Trazodone HCl (Trazodone HCl) 50 Mg Tablet, 100 MG PO QHS, (Reported) Allergies Coded Allergies: Sulfa (Sulfonamide Antibiotics) (Verified Allergy, Unknown, 10/09/20) ANDIE STALLINGS MD Oct 14, 2020 10:20
== END 2020-10-14 13:15 | disposition home or self-care (01) | DRG 753 ==
LOC: M ED 16:33 → M ED INP 20:35 → M PSY 10-10 03:35
PROVIDERS: ADMIT Psychiatry & Neurology Psychiatry; ATTEND Psychiatry & Neurology Child & Adolescent Psychiatry
DX: F31.9 Bipolar disorder, unspecified (principal); R45.851 Suicidal ideations; F41.9 Anxiety disorder, unspecified; F43.10 Post-traumatic stress disorder, unspecified; F60.7 Dependent personality disorder; M06.9 Rheumatoid arthritis, unspecified; E03.9 Hypothyroidism, unspecified; Z91.5 Personal history of self-harm; Z63.0 Problems in relationship with spouse or partner; Z62.810 Personal history of physical and sexual abuse in childhood; Z62.811 Personal history of psychological abuse in childhood; Z91.411 Personal history of adult psychological abuse; Z79.899 Other long term (current) drug therapy; Z88.2 Allergy status to sulfonamides

== ENCOUNTER → 2020-11-05 | Outpatient (CLI) | payer BC ==
[~2020-11-05] MED LIST changes: +ACET-683 PO; +LEVO50TA5 PO; +LITH300C PO; +LITH300T2 PO; +LOW-1TAB2; +SETL1TAB PO; +TRAM50TA2 PO; +TRAZ-252 PO; +VRAY3CAP PO; +ZOLO100T PO
[2020-11-05 17:27] LABS: HEPATITIS B SURFACE ANTIGEN NEGATIVE (NEGATIVE); HIV 1&2 SCREEN CENTAUR NEGATIVE (NEGATIVE)
== END ==
LOC: M WUC 10:33
PROVIDERS: ATTEND Obstetrics & Gynecology
DX: Z72.51 High risk heterosexual behavior (principal)

== ENCOUNTER → 2021-04-02 | Outpatient (REF) | payer OTHER, BC ==
[~2021-04-02] MED LIST changes: +OLAN1TAB16 PO; -OLAN5TAB PO
== END ==
LOC: M SFHCLERA 16:04
PROVIDERS: ATTEND Nurse Practitioner Family
DX: R30.0 Dysuria (principal)

== ENCOUNTER → 2021-04-18 | Outpatient (REF) | payer OTHER, BC ==
[2021-04-18 11:47] LABS: APPEARANCE, URINE TURBID (CLEAR); BACTERIA, URINE AUTO 1+ (NEGATIVE); BILIRUBIN, URINE AUTO NEGATIVE (NEGATIVE); BLOOD, URINE BLOOD 3+ (NEGATIVE); COLOR, URINE YELLOW (YELLOW); GLUCOSE, URINE (UA) AUTO NEGATIVE (NEGATIVE); KETONE, URINE AUTO NEGATIVE (NEGATIVE); LEUKOCYTE ESTERASE, URINE AUTO 3+ (NEGATIVE); NITRITE, URINE AUTO NEGATIVE (NEGATIVE); PROTEIN, URINE AUTO 2+ mg/dL (NEGATIVE); RBC, URINE AUTO TNTC /HPF (0-3); SPECIFIC GRAVITY URINE AUTO 1.014 (1.002-1.035); SQUAMOUS EPITHELIAL CELL UR AU 0 /HPF (0-6); TRANSITIONAL EPITHELIAL AUTO 5 /HPF; UROBILINOGEN, URINE AUTO 0.2 mg/dL (0.0-2.0); WBC, URINE AUTO TNTC /HPF (0-3)
== END ==
LOC: M LAB REF 11:12
PROVIDERS: ATTEND Physician Assistant Medical
DX: R30.0 Dysuria (principal)

== ENCOUNTER → 2021-05-05 | Outpatient (CLI) | payer OTHER ==
[2021-05-05 16:04] LABS: HEMATOCRIT 44.6 % (36.0-47.0); HEMOGLOBIN 14.6 g/dl (12.0-15.5); MEAN CORPUSCULAR HEMOGLOBIN 31.2 pg (27.0-33.0); MEAN CORPUSCULAR HGB CONC 32.7 g/dl (32.0-36.5); MEAN CORPUSCULAR VOLUME 95.3 fl (80.0-96.0); PLATELET COUNT, AUTOMATED 244 10^3/uL (150-450); RED BLOOD COUNT 4.68 10^6/uL (4.00-5.40); WHITE BLOOD COUNT 8.5 10^3/uL (4.0-10.0)
[2021-05-05 17:00] LABS: ALBUMIN 3.6 GM/DL (3.2-5.2); ALT/SGPT 17 U/L (12-78); BILIRUBIN,TOTAL 0.4 MG/DL (0.2-1.0); BLOOD UREA NITROGEN 9 MG/DL (7-18); CALCIUM LEVEL 9.2 MG/DL (8.5-10.1); CARBON DIOXIDE LEVEL 26 MEQ/L (21-32); CHLORIDE LEVEL 112 MEQ/L (98-107); CHOLESTEROL LEVEL 214 MG/DL (<200); CHOLESTEROL RISK RATIO 4.367 (<5); CREATININE FOR GFR 0.79 MG/DL (0.55-1.30); GLOMERULAR FILTRATION RATE > 60.0 (>60); GLUCOSE, FASTING 101 MG/DL (70-100); HDL CHOLESTEROL 49 MG/DL (>40); LDL CHOLESTEROL 142 MG/DL (<100); LITHIUM LEVEL 0.51 MEQ/L (0.60-1.20); NON-HDL-C 165 MG/DL; PHOSPHORUS LEVEL 2.2 MG/DL (2.5-4.9); SODIUM LEVEL 143 MEQ/L (136-145); THYROID STIMULATING HORMONE 0.835 uIU/ML (0.358-3.740); TOTAL PROTEIN 7.1 GM/DL (6.4-8.2); TRIGLYCERIDES LEVEL 113 MG/DL (<150)
[2021-05-05 17:25] LABS: TOTAL 25(OH) VITAMIN D 37.6 NG/ML (30.0-100.0)
[2021-05-05 18:28] LABS: HEMOGLOBIN A1c 5.1 %
== END ==
LOC: M WUC 13:35
PROVIDERS: ATTEND Nurse Practitioner Psychiatric/Mental Health
DX: F31.9 Bipolar disorder, unspecified (principal)

== ENCOUNTER → 2021-05-05 | Outpatient (CLI) | payer OTHER ==
[2021-05-05 16:03] LABS: HEMATOCRIT 44.3 % (36.0-47.0); HEMOGLOBIN 14.6 g/dl (12.0-15.5); MEAN CORPUSCULAR HEMOGLOBIN 31.4 pg (27.0-33.0); MEAN CORPUSCULAR VOLUME 95.3 fl (80.0-96.0); PLATELET COUNT, AUTOMATED 238 10^3/uL (150-450); RED BLOOD COUNT 4.65 10^6/uL (4.00-5.40); WHITE BLOOD COUNT 8.6 10^3/uL (4.0-10.0)
[2021-05-05 16:51] LABS: ERYTHROCYTE SEDIMENTATION RATE 7 mm/hr (0-20)
[2021-05-05 17:05] LABS: ALBUMIN 3.5 GM/DL (3.2-5.2); ALT/SGPT 15 U/L (12-78); BILIRUBIN,TOTAL 0.3 MG/DL (0.2-1.0); BLOOD UREA NITROGEN 9 MG/DL (7-18); C REACTIVE PROTEIN QUANTITATIV 0.62 MG/DL (0.00-0.30); CALCIUM LEVEL 8.9 MG/DL (8.5-10.1); CARBON DIOXIDE LEVEL 24 MEQ/L (21-32); CHLORIDE LEVEL 111 MEQ/L (98-107); GLOMERULAR FILTRATION RATE > 60.0 (>60); GLUCOSE, FASTING 102 MG/DL (70-100); POTASSIUM SERUM 3.9 MEQ/L (3.5-5.1); RHEUMATOID FACTOR QUANT 32.2 IU/ML (<15.0); SODIUM LEVEL 143 MEQ/L (136-145)
== END ==
LOC: M WUC 13:31
PROVIDERS: ATTEND Internal Medicine Rheumatology
DX: R76.8 Other specified abnormal immunological findings in serum (principal)

== ENCOUNTER → 2021-10-06 | Outpatient (CLI) | payer OTHER ==
[2021-10-06 18:20] LABS: ALBUMIN 3.9 GM/DL (3.2-5.2); ALT/SGPT 16 U/L (12-78); BILIRUBIN,TOTAL 0.3 MG/DL (0.2-1.0); BLOOD UREA NITROGEN 9 MG/DL (7-18); CARBON DIOXIDE LEVEL 24 MEQ/L (21-32); CHLORIDE LEVEL 111 MEQ/L (98-107); CREATININE FOR GFR 0.65 MG/DL (0.55-1.30); GLOMERULAR FILTRATION RATE > 60.0 (>60); GLUCOSE, FASTING 78 MG/DL (70-100); POTASSIUM SERUM 4.5 MEQ/L (3.5-5.1); SODIUM LEVEL 142 MEQ/L (136-145); TOTAL PROTEIN 7.3 GM/DL (6.4-8.2)
== END ==
LOC: M PLALAB 15:49
PROVIDERS: ATTEND Nurse Practitioner Adult Health
DX: Z00.00 Encounter for general adult medical examination without abnormal findings (principal); E03.9 Hypothyroidism, unspecified

== ENCOUNTER → 2021-11-20 | Outpatient (CLI) | payer OTHER ==
[2021-11-20 10:11] LABS: HEMATOCRIT 46.7 % (36.0-47.0); HEMOGLOBIN 15.4 g/dl (12.0-15.5); MEAN CORPUSCULAR HEMOGLOBIN 31.1 pg (27.0-33.0); MEAN CORPUSCULAR VOLUME 94.3 fl (80.0-96.0); PLATELET COUNT, AUTOMATED 226 10^3/uL (150-450); RED BLOOD COUNT 4.95 10^6/uL (4.00-5.40); WHITE BLOOD COUNT 14.6 10^3/uL (4.0-10.0)
[2021-11-20 10:31] LABS: HEMOGLOBIN A1c 4.9 %
[2021-11-20 11:19] LABS: ALBUMIN 3.6 GM/DL (3.2-5.2); ALT/SGPT 17 U/L (12-78); BILIRUBIN,TOTAL 0.5 MG/DL (0.2-1.0); BLOOD UREA NITROGEN 8 MG/DL (7-18); CALCIUM LEVEL 9.2 MG/DL (8.5-10.1); CARBON DIOXIDE LEVEL 26 MEQ/L (21-32); CHLORIDE LEVEL 111 MEQ/L (98-107); CHOLESTEROL LEVEL 217 MG/DL (<200); CHOLESTEROL RISK RATIO 3.616 (<5); CREATININE FOR GFR 0.68 MG/DL (0.55-1.30); GLOMERULAR FILTRATION RATE > 60.0 (>60); GLUCOSE, FASTING 80 MG/DL (70-100); HDL CHOLESTEROL 60 MG/DL (>40); LDL CHOLESTEROL 143 MG/DL (<100); NON-HDL-C 157 MG/DL; PHOSPHORUS LEVEL 2.9 MG/DL (2.5-4.9); POTASSIUM SERUM 3.8 MEQ/L (3.5-5.1); SODIUM LEVEL 141 MEQ/L (136-145); TOTAL 25(OH) VITAMIN D 35.6 NG/ML (30.0-100.0); TOTAL PROTEIN 6.9 GM/DL (6.4-8.2); TRIGLYCERIDES LEVEL 72 MG/DL (<150)
[2021-11-20 14:02] LABS: THYROID STIMULATING HORMONE 0.809 uIU/ML (0.358-3.740)
[2021-11-24 18:35] LABS: LITHIUM LEVEL 0.56 MEQ/L (0.60-1.20)
== END ==
LOC: M WUC 08:09
PROVIDERS: ATTEND Nurse Practitioner Psychiatric/Mental Health
DX: F31.9 Bipolar disorder, unspecified (principal)

== ENCOUNTER → 2022-08-11 | Outpatient (CLI) | payer OTHER ==
[2022-08-11 17:20] LABS: HEMATOCRIT 47.1 % (36.0-47.0); HEMOGLOBIN 15.1 g/dl (12.0-15.5); MEAN CORPUSCULAR HEMOGLOBIN 31.7 pg (27.0-33.0); MEAN CORPUSCULAR HGB CONC 32.1 g/dl (32.0-36.5); MEAN CORPUSCULAR VOLUME 98.9 fl (80.0-96.0); PLATELET COUNT, AUTOMATED 244 10^3/uL (150-450); RED BLOOD COUNT 4.76 10^6/uL (4.00-5.40); WHITE BLOOD COUNT 7.2 10^3/uL (4.0-10.0)
[2022-08-11 17:46] LABS: ALBUMIN 3.6 G/DL (3.2-5.2); ALKALINE PHOSPHATASE 61 U/L (46-116); ALT/SGPT 10 U/L (7.0-40); AST/SGOT 16 U/L (<34); BILIRUBIN,TOTAL 0.4 MG/DL (0.3-1.2); BLOOD UREA NITROGEN 9 MG/DL (9-23); CALCIUM LEVEL 9.1 MG/DL (8.5-10.1); CARBON DIOXIDE LEVEL 24 MMOL/L (20-31); CHLORIDE LEVEL 109 MMOL/L (98-107); CHOLESTEROL LEVEL 188 MG/DL (<200); CHOLESTEROL RISK RATIO 3.18 (<5); CREATININE FOR GFR 0.63 MG/DL (0.55-1.30); GLOMERULAR FILTRATION RATE > 60.0 (>60); GLUCOSE, FASTING 95 MG/DL (60-100); HDL CHOLESTEROL 59.1 MG/DL (>40); LDL CHOLESTEROL 117.1 MG/DL (<100); NON-HDL-C 129 MG/DL; PHOSPHORUS LEVEL 2.8 MG/DL (2.5-4.9); POTASSIUM SERUM 4.1 MMOL/L (3.5-5.1); SODIUM LEVEL 141 MMOL/L (136-145); TOTAL PROTEIN 6.8 G/DL (5.7-8.2); TRIGLYCERIDES LEVEL 59 MG/DL (<150)
[2022-08-11 17:47] LABS: LITHIUM LEVEL < 1.00 MEQ/L (0.60-1.20)
[2022-08-11 17:48] LABS: THYROID STIMULATING HORMONE 0.815 uIU/ML (0.55-4.78)
== END ==
LOC: M WUC 10:45
PROVIDERS: ATTEND Nurse Practitioner Psychiatric/Mental Health
DX: F31.9 Bipolar disorder, unspecified (principal)

== ENCOUNTER → 2022-12-24 | Outpatient (CLI) | payer OTHER ==
[2022-12-24 18:48] LABS: THYROID STIMULATING HORMONE 1.418 uIU/ML (0.55-4.78); TOTAL 25(OH) VITAMIN D 36.5 NG/ML (20.0-100.0)
[2022-12-24 18:50] LABS: ALBUMIN 3.9 G/DL (3.2-5.2); ALKALINE PHOSPHATASE 65 U/L (46-116); ALT/SGPT 14 U/L (7.0-40); AST/SGOT 12 U/L (<34); BILIRUBIN,TOTAL 0.3 MG/DL (0.3-1.2); BLOOD UREA NITROGEN 16 MG/DL (9-23); CALCIUM LEVEL 8.9 MG/DL (8.5-10.1); CARBON DIOXIDE LEVEL 26 MMOL/L (20-31); CHLORIDE LEVEL 107 MMOL/L (98-107); CREATININE FOR GFR 0.64 MG/DL (0.55-1.30); GLOMERULAR FILTRATION RATE > 60.0 (>60); GLUCOSE, FASTING 71 MG/DL (60-100); SODIUM LEVEL 140 MMOL/L (136-145); TOTAL PROTEIN 7.1 G/DL (5.7-8.2)
[2022-12-24 18:52] LABS: VITAMIN B12 LEVEL 253 PG/ML (211-911)
[2022-12-24 18:53] LABS: LITHIUM LEVEL 0.41 MMOL/L (0.60-1.20)
== END ==
LOC: M PLALAB 15:56
PROVIDERS: ATTEND Nurse Practitioner Adult Health
DX: Z00.00 Encounter for general adult medical examination without abnormal findings (principal); F41.9 Anxiety disorder, unspecified; E03.9 Hypothyroidism, unspecified; R53.83 Other fatigue; E55.9 Vitamin D deficiency, unspecified

== ENCOUNTER → 2023-06-22 | Outpatient (CLI) | payer OTHER ==
[2023-06-22 13:30] LABS: BASO # 0.1 10^3/uL (0.0-0.2); BASO % 0.4 % (0.0-1.0); EOS % 0.1 % (0.0-3.0); HEMOGLOBIN 15.1 g/dl (12.0-15.5); LYMPH % 32.1 % (24.0-44.0); MEAN CORPUSCULAR HEMOGLOBIN 32.1 pg (27.0-33.0); MEAN CORPUSCULAR HGB CONC 32.8 g/dl (32.0-36.5); MEAN CORPUSCULAR VOLUME 97.7 fl (80.0-96.0); MONO # 0.7 10^3/uL (0.0-0.8); MONO % 5.4 % (2.0-8.0); NEUTROPHILS # 7.7 10^3/uL (1.5-8.5); NEUTROPHILS % 61.7 % (36.0-66.0); PLATELET COUNT, AUTOMATED 280 10^3/uL (150-450); RED BLOOD COUNT 4.71 10^6/uL (4.00-5.40); WHITE BLOOD COUNT 12.5 10^3/uL (4.0-10.0)
[2023-06-22 13:58] LABS: LITHIUM LEVEL 0.25 MMOL/L (1.0-1.20)
[2023-06-22 13:59] LABS: ALBUMIN 3.5 G/DL (3.2-5.2); ALKALINE PHOSPHATASE 49 U/L (46-116); ALT/SGPT 14 U/L (7.0-40); AST/SGOT 11 U/L (<34); BILIRUBIN,TOTAL 0.2 MG/DL (0.3-1.2); BLOOD UREA NITROGEN 11 MG/DL (9-23); CALCIUM LEVEL 9.1 MG/DL (8.5-10.1); CARBON DIOXIDE LEVEL 25 MMOL/L (20-31); CHLORIDE LEVEL 107 MMOL/L (98-107); CHOLESTEROL LEVEL 221 MG/DL (<200); CHOLESTEROL RISK RATIO 3.57 (<5); CREATININE FOR GFR 0.57 MG/DL (0.55-1.30); GLOMERULAR FILTRATION RATE > 60.0 (>60); GLUCOSE, FASTING 90 MG/DL (60-100); HDL CHOLESTEROL 61.8 MG/DL (>40); LDL CHOLESTEROL 131.8 MG/DL (<100); NON-HDL-C 159.2 MG/DL; POTASSIUM SERUM 4.1 MMOL/L (3.5-5.1); SODIUM LEVEL 142 MMOL/L (136-145); THYROID STIMULATING HORMONE 0.972 uIU/ML (0.55-4.78); TOTAL PROTEIN 6.9 G/DL (5.7-8.2); TRIGLYCERIDES LEVEL 137 MG/DL (<150)
[2023-06-22 14:24] LABS: HEMOGLOBIN A1c 4.4 % (4.0-6.0)
== END ==
LOC: M WUC 09:14
PROVIDERS: ATTEND Nurse Practitioner Psychiatric/Mental Health
DX: F31.12 Bipolar disorder, current episode manic without psychotic features, moderate (principal)

== ENCOUNTER → 2023-09-21 | Outpatient (CLI) | payer MEDICAID ==
[2023-09-21 13:36] LABS: ALBUMIN 3.4 G/DL (3.2-5.2); ALKALINE PHOSPHATASE 44 U/L (46-116); ALT/SGPT 13 U/L (7.0-40); AST/SGOT 10 U/L (<34); BILIRUBIN,TOTAL 0.2 MG/DL (0.3-1.2); BLOOD UREA NITROGEN 9 MG/DL (9-23); CALCIUM LEVEL 8.5 MG/DL (8.5-10.1); CARBON DIOXIDE LEVEL 24 MMOL/L (20-31); CHLORIDE LEVEL 111 MMOL/L (98-107); CREATININE FOR GFR 0.56 MG/DL (0.55-1.30); GLOMERULAR FILTRATION RATE > 60.0 (>60); GLUCOSE, FASTING 113 MG/DL (60-100); LITHIUM LEVEL 0.28 MMOL/L (1.0-1.20); POTASSIUM SERUM 4.2 MMOL/L (3.5-5.1); SODIUM LEVEL 142 MMOL/L (136-145); THYROID STIMULATING HORMONE 0.841 uIU/ML (0.55-4.78); TOTAL 25(OH) VITAMIN D 56.2 NG/ML (20.0-100.0); TOTAL PROTEIN 6.7 G/DL (5.7-8.2)
[2023-09-21 13:37] LABS: VITAMIN B12 LEVEL 287 PG/ML (211-911)
== END ==
LOC: M WUC 08:49
PROVIDERS: ATTEND Nurse Practitioner Adult Health
DX: F41.9 Anxiety disorder, unspecified (principal); E03.9 Hypothyroidism, unspecified; R53.83 Other fatigue

== ENCOUNTER → 2024-01-03 | Outpatient (CLI) | payer MEDICAID ==
[2024-01-03 10:32] LABS: BASO # 0.1 10^3/uL (0.0-0.2); BASO % 0.7 % (0.0-1.0); EOS # 0.1 10^3/uL (0.0-0.5); EOS % 1.2 % (0.0-3.0); HEMATOCRIT 45.2 % (36.0-47.0); HEMOGLOBIN 14.9 g/dl (12.0-15.5); LYMPH # 2.1 10^3/uL (1.5-5.0); LYMPH % 31.6 % (24.0-44.0); MEAN CORPUSCULAR HEMOGLOBIN 32.3 pg (27.0-33.0); MONO # 0.4 10^3/uL (0.0-0.8); MONO % 6.5 % (2.0-8.0); NEUTROPHILS # 4.1 10^3/uL (1.5-8.5); NEUTROPHILS % 59.9 % (36.0-66.0); PLATELET COUNT, AUTOMATED 195 10^3/uL (150-450); RED BLOOD COUNT 4.61 10^6/uL (4.00-5.40); WHITE BLOOD COUNT 6.8 10^3/uL (4.0-10.0)
[2024-01-03 10:34] LABS: VALPROIC ACID (DEPAKOTE) 45.4 UG/ML (50.0-100.0)
[2024-01-03 10:36] LABS: ALBUMIN 3.4 G/DL (3.2-5.2); ALKALINE PHOSPHATASE 49 U/L (46-116); ALT/SGPT 16 U/L (7.0-40); AST/SGOT 12 U/L (<34); BILIRUBIN,TOTAL 0.3 MG/DL (0.3-1.2); BLOOD UREA NITROGEN 11 MG/DL (9-23); CARBON DIOXIDE LEVEL 28 MMOL/L (20-31); CHLORIDE LEVEL 108 MMOL/L (98-107); CREATININE FOR GFR 0.68 MG/DL (0.55-1.30); GLOMERULAR FILTRATION RATE > 60.0 (>60); GLUCOSE, FASTING 84 MG/DL (60-100); POTASSIUM SERUM 4.3 MMOL/L (3.5-5.1); SODIUM LEVEL 141 MMOL/L (136-145); TOTAL PROTEIN 6.4 G/DL (5.7-8.2)
[2024-01-03 11:01] LABS: THYROID STIMULATING HORMONE 0.994 uIU/ML (0.55-4.78)
== END ==
LOC: M WUC 08:01
PROVIDERS: ATTEND Nurse Practitioner Psychiatric/Mental Health
DX: F32.A Depression, unspecified (principal)

== ENCOUNTER → 2024-02-11 | Outpatient (CLI) | payer BC, OTHER ==
[2024-02-11 11:19] LABS: BASO % 0.6 % (0.0-1.0); EOS # 0.1 10^3/uL (0.0-0.5); EOS % 0.9 % (0.0-3.0); HEMATOCRIT 46.5 % (36.0-47.0); HEMOGLOBIN 15.2 g/dl (12.0-15.5); LYMPH # 2.3 10^3/uL (1.5-5.0); LYMPH % 33.2 % (24.0-44.0); MEAN CORPUSCULAR HEMOGLOBIN 32.1 pg (27.0-33.0); MEAN CORPUSCULAR HGB CONC 32.7 g/dl (32.0-36.5); MEAN CORPUSCULAR VOLUME 98.1 fl (80.0-96.0); MONO # 0.5 10^3/uL (0.0-0.8); MONO % 6.9 % (2.0-8.0); NEUTROPHILS # 4.1 10^3/uL (1.5-8.5); NEUTROPHILS % 58.1 % (36.0-66.0); PLATELET COUNT, AUTOMATED 165 10^3/uL (150-450); RED BLOOD COUNT 4.74 10^6/uL (4.00-5.40)
[2024-02-11 11:48] LABS: VALPROIC ACID (DEPAKOTE) 15.7 UG/ML (50.0-100.0)
[2024-02-11 11:50] LABS: ALBUMIN 3.5 G/DL (3.2-5.2); ALKALINE PHOSPHATASE 45 U/L (46-116); ALT/SGPT 17 U/L (7.0-40); AST/SGOT 11 U/L (<34); BILIRUBIN,TOTAL 0.5 MG/DL (0.3-1.2); BLOOD UREA NITROGEN 10 MG/DL (9-23); CARBON DIOXIDE LEVEL 27 MMOL/L (20-31); CHLORIDE LEVEL 112 MMOL/L (98-107); CREATININE FOR GFR 0.59 MG/DL (0.55-1.30); GLOMERULAR FILTRATION RATE > 60.0 (>60); GLUCOSE, FASTING 107 MG/DL (60-100); POTASSIUM SERUM 4.4 MMOL/L (3.5-5.1); SODIUM LEVEL 142 MMOL/L (136-145); TOTAL PROTEIN 6.4 G/DL (5.7-8.2)
[2024-02-11 11:53] LABS: LITHIUM LEVEL < 0.10 MMOL/L (1.0-1.20)
== END ==
LOC: M WUC 09:03
PROVIDERS: ATTEND Nurse Practitioner Psychiatric/Mental Health
DX: F31.12 Bipolar disorder, current episode manic without psychotic features, moderate (principal)

== ENCOUNTER → 2024-06-01 | Outpatient (REF) | payer BC, MEDICAID, OTHER ==
[2024-06-01 18:09] LABS: APPEARANCE, URINE CLEAR (CLEAR); BACTERIA, URINE AUTO NEGATIVE (NEGATIVE); BILIRUBIN, URINE AUTO NEGATIVE (NEGATIVE); BLOOD, URINE BLOOD NEGATIVE (NEGATIVE); COLOR, URINE YELLOW (YELLOW); GLUCOSE, URINE (UA) AUTO NEGATIVE (NEGATIVE); KETONE, URINE AUTO NEGATIVE (NEGATIVE); LEUKOCYTE ESTERASE, URINE AUTO NEGATIVE (NEGATIVE); NITRITE, URINE AUTO NEGATIVE (NEGATIVE); PROTEIN, URINE AUTO NEGATIVE (NEGATIVE); RBC, URINE AUTO 2 /HPF (0-3); SPECIFIC GRAVITY URINE AUTO 1.009 (1.002-1.035); SQUAMOUS EPITHELIAL CELL UR AU 0 /HPF (0-6); UROBILINOGEN, URINE AUTO 0.2 mg/dL (0.0-2.0); WBC, URINE AUTO 0 /HPF (0-3)
== END ==
LOC: M LAB REF 16:14
PROVIDERS: ATTEND Physician Assistant
DX: N39.0 Urinary tract infection, site not specified (principal)

== ENCOUNTER → 2024-06-20 | Outpatient (REF) | payer BC, MEDICAID, OTHER ==
[2024-06-20 17:23] LABS: APPEARANCE, URINE CLEAR (CLEAR); BACTERIA, URINE AUTO 1+ (NEGATIVE); BILIRUBIN, URINE AUTO NEGATIVE (NEGATIVE); BLOOD, URINE BLOOD NEGATIVE (NEGATIVE); COLOR, URINE YELLOW (YELLOW); GLUCOSE, URINE (UA) AUTO NEGATIVE (NEGATIVE); KETONE, URINE AUTO NEGATIVE (NEGATIVE); LEUKOCYTE ESTERASE, URINE AUTO NEGATIVE (NEGATIVE); NITRITE, URINE AUTO NEGATIVE (NEGATIVE); PROTEIN, URINE AUTO NEGATIVE (NEGATIVE); RBC, URINE AUTO 2 /HPF (0-3); SPECIFIC GRAVITY URINE AUTO 1.008 (1.002-1.035); SQUAMOUS EPITHELIAL CELL UR AU 3 /HPF (0-6); UROBILINOGEN, URINE AUTO 0.2 mg/dL (0.0-2.0); WBC, URINE AUTO 0 /HPF (0-3)
== END ==
LOC: M LAB REF 16:52
PROVIDERS: ATTEND Physician Assistant Medical
DX: N39.0 Urinary tract infection, site not specified (principal)

== ENCOUNTER → 2024-12-01 | Outpatient (CLI) | payer OTHER ==
[2024-12-01 07:27] LABS: HEMATOCRIT 46.1 % (36.0-47.0); HEMOGLOBIN 14.7 g/dl (12.0-15.5); MEAN CORPUSCULAR HEMOGLOBIN 31.7 pg (27.0-33.0); MEAN CORPUSCULAR HGB CONC 31.9 g/dl (32.0-36.5); MEAN CORPUSCULAR VOLUME 99.4 fl (80.0-96.0); PLATELET COUNT, AUTOMATED 190 10^3/uL (150-450); RED BLOOD COUNT 4.64 10^6/uL (4.00-5.40); WHITE BLOOD COUNT 8.9 10^3/uL (4.0-10.0)
[2024-12-01 08:13] LABS: LITHIUM LEVEL 0.75 MMOL/L (1.0-1.20)
[2024-12-01 08:14] LABS: ALBUMIN 3.6 G/DL (3.2-5.2); ALKALINE PHOSPHATASE 57 U/L (35-104); ALT/SGPT 28 U/L (7.0-40); AST/SGOT 15 U/L (<34); BILIRUBIN,TOTAL 0.4 MG/DL (0.3-1.2); BLOOD UREA NITROGEN 12 MG/DL (9-23); CALCIUM LEVEL 9.1 MG/DL (8.5-10.1); CARBON DIOXIDE LEVEL 28 MMOL/L (20-31); CHLORIDE LEVEL 108 MMOL/L (98-107); CREATININE FOR GFR 0.65 MG/DL (0.55-1.30); GLOMERULAR FILTRATION RATE > 90.0 (>60); GLUCOSE, FASTING 69 MG/DL (60-100); POTASSIUM SERUM 4.2 MMOL/L (3.5-5.1); SODIUM LEVEL 143 MMOL/L (136-145); TOTAL PROTEIN 6.5 G/DL (5.7-8.2)
== END ==
LOC: M LAB 06:47
PROVIDERS: ATTEND Student in an Organized Health Care Education/Training Program
DX: F31.12 Bipolar disorder, current episode manic without psychotic features, moderate (principal)

== ENCOUNTER → 2025-05-12 | Outpatient (CLI) | payer OTHER | LOC: M LAB 08:55 | DX: F31.12 Bipolar disorder, current episode manic without psychotic features, moderate (principal) ==

== ENCOUNTER → 2025-07-12 | Outpatient (CLI) | payer OTHER | LOC: M WUC 08:31 | PROVIDERS: ATTEND Internal Medicine Rheumatology | DX: M06.9 Rheumatoid arthritis, unspecified (principal); R76.89 Other specified abnormal immunological findings in serum ==